=== PATIENT | female | born 1945 | race Caucasian/White ===

== ENCOUNTER 2017-01-12 05:15 | Inpatient (IN) | payer OTHER ==
[2016-12-14 12:39] VITALS: Ht 156.2 cm; Wt 86.0 kg
--- NOTE | 2016-12-14 12:59 | PAT Medication Instructions ---
Service Date December 14, 2016. Current Home Medication List Aspirin (Aspirin Chewable), 81 MG PO QPM Atorvastatin (Lipitor), 1 TAB PO QAM Lisinopril (Prinivil), 10 MG PO QAM Metoprolol Succ (Toprol Xl) (Toprol-Xl), 25 MG PO QPM Medication Instructions For Your Scheduled Surgery - Hold the following medications the morning of surgery: Lisinopril (Prinivil), 10 MG PO QAM - Take the following medications the morning of surgery with a sip of water OTHERWISE NOTHING TO EAT OR DRINK AFTER MIDNIGHT: Atorvastatin (Lipitor), 1 TAB PO QAM - Take the following medications as scheduled the night before surgery: Aspirin (Aspirin Chewable), 81 MG PO QPM Metoprolol Succ (Toprol Xl) (Toprol-Xl), 25 MG PO QPM If you have any questions please call us at [phone] or [phone] or [phone]
--- NOTE | 2016-12-14 13:45 | DIAGNOSTIC IMAGING REPORT ---
CHEST 2 VIEWS ROUTINE CLINICAL HISTORY: Preoperative chest COMPARISON STUDY: 11/15/2015 FINDINGS: The cardiac and mediastinal contours are normal. There is no evidence of focal pulmonary consolidation. There is no evidence of failure. No pleural effusions are visualized.[ IMPRESSION: No active disease in the chest. Electronically signed by: Venu Pollard M.D. 12/14/2016 1:43 PM Dictated Date/Time: 12/14/2016 1:43 PM
[2016-12-14 13:49] LABS: BASO % 0.3 %; BASO ABS # 0.02 K/uL (0-0.2); COMPLETE YES; EOS % 1.7 %; HEMATOCRIT 40.5 % (37-47); IG% 0.2 %; LYMPH % 37.5 %; LYMPH ABS # 2.25 K/uL (1.2-3.4); MEAN CELL VOLUME 89.8 fL (80-100); MEAN CORPUSCULAR HEMOGLOBIN 30.4 pg (25-34); MEAN CORPUSCULAR HGB CONC 33.8 g/dl (32-36); MEAN PLATELET VOLUME 9.6 fL (7.4-10.4); NEUT % 47.3 %; PLATELET COUNT 264 K/uL (130-400); RED BLOOD COUNT 4.51 M/uL (4.2-5.4)
[2016-12-14 14:02] LABS: INR 0.9 (0.9-1.1); PROTHROMBIN TIME (PATIENT) 9.9 SECONDS (9.0-12.0)
[2016-12-14 14:11] LABS: BUN/CREATININE RATIO 19.1 (10-20); CALCIUM 9.4 mg/dl (8.5-10.1); CREATININE 0.82 mg/dl (0.60-1.20); POTASSIUM 3.9 mmol/L (3.5-5.1)
--- NOTE | 2017-01-09 19:58 | HISTORY & PHYSICAL EXAMINATION ---
DATE OF ADMISSION: 01/12/2017 CHIEF COMPLAINT: bilateral knee pain. HISTORY OF PRESENT ILLNESS: The patient is a 71-year-old female who presents for surgical treatment for left knee. She has been a patient of my partner Dr. Kenny for quite some time. The patient has got a long history of bilateral knee pain and discomfort. Both knees hurt pretty equally. The left knee when it hurts seems to be a little bit more severe than the right, but the right hurts more often. The patient has been through an extensive conservative treatment. She has just gotten worn down by her knee pain and would like to have her knees fixed. The right knee has been more severe, more persistently painful than the left. She would like to proceed with right knee replacement. PAST MEDICAL HISTORY: Significant for: 1. Atrial fibrillation followed by Dr. Hernandez and not on any anti-coagulants, but controlled with metoprolol. 2. Elevated cholesterol. 3. Hypertension. PREVIOUS SURGERIES: Include: 1. Breast biopsy. 2. Tonsillectomy. ALLERGIES: None. CURRENT MEDICINES: 1. Lisinopril 10 mg a day. 2. Lipitor 10 mg. 3. Baby aspirin 81 mg. 4. Metoprolol 25 mg a day. SOCIAL HISTORY: A 71-year-old female. She is . Does not smoke. She is from [place]. FAMILY HISTORY: Noncontributory. REVIEW OF SYSTEMS: Negative for diabetes, neurologic problems, vascular problems or bleeding disorders. She has a history of atrial fibrillation, well controlled on metoprolol. Not on any blood thinners. No current chest pain or shortness of breath. PHYSICAL EXAMINATION: GENERAL: Reveals a healthy pleasant, middle-aged female. Looks to be in good health. HEENT: Benign. NECK: Supple. No lymphadenopathy. LUNGS: Clear to auscultation. HEART: Has a regular rate and rhythm. ABDOMEN: Soft, nontender, nondistended. EXTREMITIES: Grossly neurovascularly intact except as follows: Examination of both knees reveals the patient walks with a little bit of waddling gait. She has got varus alignment to both knees. She has got bony hypertrophy medially. Range of motion of the right knee is 10-110 and the left knee is 10-115. No instability on either side. X-RAYS: X-rays of both knees were reviewed. It shows advanced bilateral knee DJD. The right side is a bit worse than the left. She has got a little bit of tibial-femoral subluxation. She has got some complete loss of her medial joint space in both knees. ASSESSMENT: A 71-year-old female with advanced bilateral knee degenerative joint disease. She has failed conservative treatment and would like to consider knee replacement surgery. She is wanting both of her knees replaced. PLAN: We are going to proceed with a right knee replacement. It seems to be the more sore currently. The risks and benefits of total knee replacement were explained to the patient including but not limited to DVT, PE, , infection, neurological injury, vascular injury, bleeding problem, pain, limited range of motion, stiffness, failure to relieve her symptoms, incomplete relief of symptoms, need for further surgery in the future, fracture, leg length inequality, nerve palsy, persistent pain, incomplete relief of symptoms, etc. The patient understands and desires to proceed. Informed consent was obtained. We did talk about holding her lisinopril in the morning of surgery and take her metoprolol. We can have Dr. Hernandez follow in the hospital if needed. She is hoping to go to [facility] for a brief rehab stay and then using [facility]. The patient had preoperative workup. Chest x-ray was normal. EKG showed normal sinus rhythm and she is not in AFib but she does have a left bundle branch block unchanged from November 2015. Labs were all normal. We will proceed with the plan as above. RADHAD
[~2017-01-12] VITALS: Ht 156.2 cm; Wt 86.0 kg
[2017-01-12] VITALS (10 sets, daily range): BP systolic 98–137; BP diastolic 61–79; PULSE 62–88; TEMP 36.5–37.3; O2SAT 95–98
[~2017-01-12 05:15] MED LIST: ASPCH81X PO; ATOR10TA82 PO; LISI10TA PO; METO25TA3 PO
[2017-01-12] MEDS ORDERED: TRANEXAMIC ACID INJ 1,000 MG in SODIUM CHLORIDE 0.9% 100ML 100 ML IV SCH ×2 (06:00→17:00)
[2017-01-12] MEDS ORDERED: CEFAZOLIN 2000 MG/60 ML D5W 60 ML IV SCH (06:00)
[2017-01-12] MEDS ORDERED: LACTATED RINGER'S 1000ML 1,000 ML IV SCH (06:00)
[2017-01-12] MEDS ORDERED: LACTATED RINGER'S 1000ML IV SCH (06:00)
[2017-01-12] MEDS ORDERED: METOCLOPRAMIDE HCL 10 MG TAB PO SCH (06:00)
[2017-01-12] MEDS ORDERED: FAMOTIDINE 20 MG TAB PO SCH (06:00)
[2017-01-12] MEDS ORDERED: LACTATED RINGER'S 1000ML 500 ML IV ONE (06:00)
[2017-01-12] MEDS ORDERED: ACETAMINOPHEN 500 MG TAB PO SCH (06:00)
[2017-01-12] MEDS ORDERED: GABAPENTIN 300 MG CAP PO SCH (06:00)
[2017-01-12] MEDS ORDERED: BUPIVACAINE LIPOSOME 266 MG, BUPIVACAINE/EPINEPHRINE INJ 50 ML, SODIUM CHLORIDE 0.9% PF... INFIL SCH ×3 (06:00)
[2017-01-12] MEDS ORDERED: SCOPOLAMINE 1.5 MG TDSY TD SCH (06:00)
[2017-01-12] MEDS ORDERED: BUPIVACAINE LIPOSOME 1/3% 266 MG/20 ML VIAL INFIL ONE (06:27)
[2017-01-12] MEDS ORDERED: SODIUM CHLORIDE 0.9% PF 50 ML VIAL ONE (06:27)
[2017-01-12] MEDS ORDERED: BUPIVACAINE/EPINEPHRINE 0.25% 1:200,000 30 ML VIAL ONE (06:27)
[2017-01-12] MEDS ORDERED: BACITRACIN 50000 UNIT VIAL ONE (06:27)
[2017-01-12] MEDS ORDERED: BUPIVACAINE 0.25% 30 ML VIAL ONE (06:31)
[2017-01-12] MEDS ORDERED: BUPIVACAINE 0.5 % 5 MG/1 ML PF 10ML VIAL ONE (06:31)
[2017-01-12] MEDS ORDERED: MIDAZOLAM HCL 1 MG/ML 2ML VIAL ONE (06:39)
[2017-01-12] MEDS ORDERED: LIDOCAINE HCL 2% 2 ML VIAL (20MG/ML) ONE (06:39)
[2017-01-12] MEDS ORDERED: PROPOFOL IV EMULSION 10 MG/ML 20 ML VIAL IV ONE (06:39)
[2017-01-12] MEDS ORDERED: FENTANYL CITRATE INJ 50 MCG/1 ML 2 ML VIAL ONE (06:40)
--- NOTE | 2017-01-12 06:52 | History & Physical Bridge Note ---
H&P Re-Evaluation Bridge Note: I have examined the patient, reviewed the History & Physical and in the interval since the performance of the History & Physical I have noted the following changes of clinical significance: No changes noted
[2017-01-12] MEDS ORDERED: HYDROmorphone INJ 1 MG/ML SYR IV PRN ×2 (08:00→11:00)
[2017-01-12] MEDS ORDERED: MEPERIDINE HCL 25 MG/ML CARP IV PRN (08:00)
[2017-01-12] MEDS ORDERED: ATROPINE SULFATE 0.1 MG/ML 5ML SYR IV PRN (08:00)
[2017-01-12] MEDS ORDERED: FENTANYL CITRATE INJ 50 MCG/1 ML 2 ML VIAL IV PRN (08:00)
[2017-01-12] MEDS ORDERED: LABETALOL HCL IV 5 MG/ML 20ML IV PRN (08:00)
[2017-01-12] MEDS ORDERED: ONDANSETRON INJ 2 MG/ML 2 ML VIAL IV PRN ×2 (08:00→08:45)
[2017-01-12] MEDS ORDERED: EpHEDrine SULFATE INJ 50 MG/ML AMP IV PRN (08:00)
--- NOTE | 2017-01-12 08:34 | [facility] Post Operative Brief Note ---
Immediate Operative Summary Operative Date January 12, 2017. Pre-Operative Diagnosis Right Knee Degenerative Joint Disease Post-Operative Diagnosis Same as preop Procedure(s) Performed [facility] [place] Total Knee Arthroplasty Surgeon Dr. Lobo Signal Apprentice Surgeon(s) Bartolome Mendez PA-C Estimated Blood Loss 50 ml Findings Right Knee DJD Fluids (cc crystalloids) 1600 cc Specimens A. Right Knee Bone and Tissue Drains None Anesthesia Spinal Complication(s) None Disposition Recovery Room / PACU
[2017-01-12] MEDS ORDERED: SILVER SULFADIAZINE 1% CR 50 GM JAR EXT PRN (08:45)
[2017-01-12] MEDS ORDERED: ZOLPIDEM TARTRATE 5 MG TAB PO PRN (08:45)
[2017-01-12] MEDS ORDERED: TRAMADOL HCL 50 MG TAB PO PRN (08:45)
[2017-01-12] MEDS ORDERED: METOCLOPRAMIDE HCL INJ 5 MG/ML 2 ML VIAL IV PRN (08:45)
[2017-01-12] MEDS ORDERED: ALUMINUM/MAGNESIUM/SIMETH (MAALOX MAX) 30 ML UDC PO PRN (08:45)
[2017-01-12] MEDS ORDERED: BISACODYL 10 MG SUPP PR PRN (08:45)
[2017-01-12] MEDS ORDERED: MAGNESIUM HYDROXIDE SUSP 30 ML UDC PO PRN (08:45)
--- NOTE | 2017-01-12 09:19 | OPERATIVE REPORT ---
DATE OF OPERATION: 01/12/2017 SURGEON: Garry Lobo MD PROCESSOR GRAIN: VINAY Xavier PREOPERATIVE DIAGNOSIS: Right knee degenerative joint disease. POSTOPERATIVE DIAGNOSIS: Same. PROCEDURE PERFORMED: Right cemented posterior stabilized total knee arthroplasty. COMPLICATIONS: None. ESTIMATED BLOOD LOSS: 50 mL. FLUID REPLACEMENT: 1600 mL crystalloid fluid replacement. TOURNIQUET TIME: 53 minutes at 300 mmHg. ANESTHESIA: Spinal with adductor canal block. DRAINS: None. SPECIMENS: Right knee sent for pathology. OPERATIVE INDICATIONS: The patient is a 71-year-old female who has had a long history of bilateral knee pain and discomfort. She has been managed by my partner Dr. Kenny for several years. This has become less successful. She has become more debilitated by her pain. The right knee has been worse than the left. She elected to proceed with total knee arthroplasty. OPERATIVE FINDINGS: Operative findings revealed advanced right knee DJD. She had extensive grade 4 [id number] disease of the medial femoral condyle and medial tibial plateau. She did have some focal grade 4 changes elsewhere. She had a fixed varus deformity to her knee with a very stiff knee with only about 105 degrees of flexion preoperatively. Moderate size joint effusion. OPERATIVE IMPLANTS: Operative implants consisted of: 1. Biomet Vanguard size 65 right posterior stabilized femoral component. 2. Biomet size 67 tibial tray. 3. A 10-mm posterior stabilized polyethylene insert. 4. A 31 x 8 all poly patella. OPERATIVE PROCEDURE: The patient was taken to the operating room, identified and placed on the operating table in the supine position. All contact areas were appropriately padded. IV antibiotics were provided by the anesthesia team. A spinal anesthetic and adductor canal block had been provided in the holding area. Robertson catheter was placed in sterile fashion. Right thigh tourniquet was then placed and the right lower extremity was then prepped and draped in the usual sterile fashion. The right leg was elevated and exsanguinated with Esmarch and tourniquet was placed at 300 mmHg. An anterior approach to the right knee was then performed through a longitudinal incision centered over the patella. Sharp dissection was carried out through the subcutaneous tissues down to the level of the extensor mechanism. A medial parapatellar arthrotomy incision was made. Some subperiosteal dissection was carried out medially. The fat pad was resected from beneath the patellar tendon. Lateral patellofemoral ligament was released. The knee was pretty stiff, so I elected to cut the patella first. I everted the patella. The patella was cleaned of all soft tissues. Patellar thickness measured 23 mm and was cut down to 14. It was sized to a size 31 patella. Lateral osteophyte was removed. I did not prepare the patella until the end of the case. The patella was subluxated laterally and the knee was flexed. The osteophytes were taken off the distal femur. The ACL and PCL were then released from the distal femur and the tibia was subluxated anteriorly. The external tibial alignment jig was then placed in the anterior face of the tibia and adjusted 16 mm medially. Proximal tibial cut was made to remove about a millimeter of bone from the most deficient aspect of the posteromedial tibial plateau. Tibia was sized to a size 67. Some osteophytes were taken off medial and posteromedially. Attention was then drawn to the femur. The distal femur was entered with a sharp drill bit. Intramedullary canal was suctioned. A right 5-degree valgus cutting guide was placed. Distal femoral cutting block was pinned in place. Distal femoral cut was made to take an additional 3 mm of bone off the distal femur. The femur was then sized to a size 65. We did downsize this just slightly. The AP cutting block was pinned parallel to the epicondylar axis, which was 3 degrees of external rotation. The anterior cut, anterior chamfer, posterior cut, and posterior chamfer cuts were made. Box cutting guide was placed and adjusted slightly lateral and the box cut was made. The knee was flexed. The remnants of the medial and lateral meniscus were excised. The osteophytes were taken off the posterior aspect of the femur. Trial femoral component was placed. Tibial tray was pinned in maximum external rotation and drill and stem punch were used to create defect in proximal tibia for the tibial tray. The knee was then trialed and the 10-mm insert fit most appropriately. Attention was then drawn to the patella. The patella was then prepared for a 31 patella. Lug holes were drilled. Patella button was placed. Knee was taken through range of motion and patella tracked nicely with no thumbs test. Attention was then drawn toward placement of permanent components. All trial components were removed. A bone plug was placed in the distal femur to limit blood loss. The wound was irrigated with copious amounts of pulsatile lavage solution. A double batch of Palacos G cement was mixed. A right size 65 posterior stabilized femoral component, size 67 tibial tray, a 10-mm posterior stabilized polyethylene insert, and a 31 x 8 all poly patella then cemented in place. Knee was brought out into full extension until cement hardened. A final cement check was then performed. Pericapsular tissues were injected with a total of 100 mL of a combination of 20 of Exparel, 30 mL normal saline, and 50 mL of 0.25% Marcaine with epinephrine. The patient did receive 1 gram of tranexamic acid. The tourniquet was then let down for final tourniquet time of 53 minutes. Hemostasis was assured with the use of electrocautery. The wound was once again irrigated. The extensor mechanism was then closed with a combination of #1 PDS suture and #1 Vicryl suture in a [id number] fashion. Extensor mechanism was checked and found to be intact. The subcutaneous tissues were then closed with 2-0 Dexon suture in a buried interrupted fashion. Skin was closed with skin adriana. The leg was then cleaned and dried and a sterile dressing with Xeroform, 4 x 4, sterile cast padding and En bandage were applied. The patient then transferred to the recovery room in stable condition. The patient tolerated the procedure well with no complications. All needle and sponge counts were correct at the end of the operation. I attest to the content of the Intraoperative Record and any orders documented therein. Any exceptio ns are noted below.
--- NOTE | 2017-01-12 09:39 | DIAGNOSTIC IMAGING REPORT ---
RIGHT KNEE 1 OR 2 VIEWS ROUTINE CLINICAL HISTORY: Degenerative arthritis. Postoperative study. COMPARISON: 12/07/2016 DISCUSSION: There are postsurgical changes of a total right knee arthroplasty and patellar resurfacing. The femoral and tibial components appear well seated. Overlying skin adriana are visualized. Air within the soft tissues is consistent with recent surgery. IMPRESSION: Postsurgical changes of a total right knee arthroplasty Electronically signed by: Venu Pollard M.D. 01/12/2017 9:38 AM Dictated Date/Time: 01/12/2017 9:35 AM
--- NOTE | 2017-01-12 10:27 | Anesthesiology Progress Note ---
Anesthesia Post Op Note Date & Time January 12, 2017 at 10:28 Vital Signs Pain Intensity: 0 Vital Signs Past 12 Hours Date Time Temp Pulse Resp B/P Pulse Ox O2 Delivery O2 Flow Rate FiO2 01/12/17 10:18 36.4 87 17 125/71 98 Nasal Cannula 2 01/12/17 09:32 76 18 98 01/12/17 09:32 76 18 01/12/17 09:31 121/67 01/12/17 09:27 85 20 01/12/17 09:27 86 20 98 01/12/17 09:26 126/69 01/12/17 09:22 85 22 01/12/17 09:22 86 22 99 01/12/17 09:21 127/68 01/12/17 09:17 76 24 99 01/12/17 09:17 77 24 01/12/17 09:16 75 21 01/12/17 09:16 75 21 01/12/17 09:16 74 21 119/66 99 01/12/17 09:16 74 21 119/66 99 01/12/17 09:11 82 18 01/12/17 09:11 82 18 01/12/17 09:11 81 18 121/62 99 01/12/17 09:11 81 18 121/62 99 01/12/17 09:06 76 16 120/66 99 01/12/17 09:06 76 16 01/12/17 09:06 76 16 120/66 99 01/12/17 09:06 76 16 01/12/17 09:01 75 15 117/62 99 01/12/17 09:01 74 15 01/12/17 09:01 74 15 01/12/17 09:01 75 15 117/62 99 01/12/17 08:56 75 24 121/65 98 01/12/17 08:56 75 24 01/12/17 08:56 75 24 01/12/17 08:56 75 24 121/65 98 01/12/17 08:51 81 14 01/12/17 08:51 81 14 01/12/17 08:51 80 14 125/68 99 01/12/17 08:51 80 14 125/68 99 01/12/17 08:46 72 14 114/59 99 01/12/17 08:46 73 14 01/12/17 08:46 72 14 114/59 99 01/12/17 08:46 73 14 01/12/17 08:41 78 18 109/69 99 01/12/17 08:41 78 18 01/12/17 08:41 78 18 01/12/17 08:41 78 18 109/69 99 01/12/17 08:38 116/62 01/12/17 08:38 116/62 01/12/17 08:36 36.1 77 13 116/62 96 Nasal Cannula 2 01/12/17 05:52 36.6 79 18 137/76 96 Room Air Notes Mental Status: alert / awake / arousable, participated in evaluation Pt Amnestic to Procedure: Yes Nausea / Vomiting: adequately controlled Pain: adequately controlled Airway Patency, RR, SpO2: stable & adequate BP & HR: stable & adequate Hydration State: stable & adequate Anesthetic Complications: no major complications apparent
[2017-01-12] MEDS: DOCUSATE SODIUM 100 MG CAP PO SCH ×2 (12:54→21:16)
[2017-01-12] MEDS: D5W AND 1/2NSS + 20MEQ KCL 1,000 ML IV SCH ×2 (12:54→21:16)
[2017-01-12] MEDS: ASPIRIN 325 MG ECTAB PO SCH ×2 (12:55→21:15)
[2017-01-12] MEDS: FERROUS GLUCONATE 324 MG TAB PO SCH ×2 (12:55→17:44)
[2017-01-12] MEDS: ATORVASTATIN 10 MG TAB PO SCH (12:55)
[2017-01-12] MEDS: PANTOprazole SOD 40 MG TAB PO SCH (12:55)
[2017-01-12] MEDS: MULTIVITAMIN TAB PO SCH (12:56)
[2017-01-12] MEDS: KETOROLAC TROMETHAMINE 15 MG/ML VIAL IV. SCH ×3 (12:59→23:25)
[2017-01-12] MEDS: CEFAZOLIN IV 2,000 MG in DEXTROSE 5% 50ML 50 ML IV SCH ×2 (14:18→22:02)
[2017-01-12] MEDS: ACETAMINOPHEN 500 MG TAB PO SCH ×2 (14:18→22:02)
[2017-01-12] MEDS: CHECK SCOPOLAMINE PATCH PLACEMENT SCH ×2 (15:25→23:26)
--- NOTE | 2017-01-12 15:58 | PROGRESS NOTE ---
DATE: 01/12/2017 SUBJECTIVE: A 71-year-old female postop from a right knee replacement. She is doing well. Not having any pain at all yet. No chest pain or shortness of breath. Not feeling dizzy or lightheaded. OBJECTIVE: VITAL SIGNS: Temperature is 36.6. Vital signs stable. GENERAL: Physical examination reveals healthy, pleasant, middle-aged female. She is sitting up in bed and looks pretty comfortable. LUNGS: Clear to auscultation. HEART: Regular rate and rhythm. ABDOMEN: Soft, nontender, and nondistended. EXTREMITIES: Grossly neurovascularly intact except as follows: Examination of the right leg reveals the leg to be well aligned. Dressing is clean, dry and intact. She can dorsiflex and plantarflex her foot appropriately. She is neurologically intact. X-RAYS: X-rays of the right knee from recovery room reviewed. It shows a right cemented posterior stabilized total knee arthroplasty. Components looked to be in good position. No signs of problems. ASSESSMENT: A 71-year-old white female postop from a right knee replacement, doing well. Pain is controlled. She is neurologically intact. PLAN: 1. DVT prophylaxis including thigh-high TEDs, SCDs, and aspirin twice a day. 2. PT/OT. Weightbearing as tolerated. Right total knee protocol. 3. Pain control, doing pretty well with current pain regimen. 4. IV antibiotics x24 hours. 5. Disposition: She is hoping to be discharged to [facility]. We will get elementary school social worker to work on this tomorrow and see whether she qualifies. Otherwise, she will likely go home with some home health.
[2017-01-12] MEDS: METOPROLOL SUCC 25MG EXT REL TAB PO SCH (21:00)
[2017-01-12] MEDS: SENNA 8.6 MG TAB PO SCH (21:15)
[2017-01-13] VITALS (7 sets, daily range): BP systolic 110–166; BP diastolic 65–74; PULSE 58–74; TEMP 36.4–36.9; O2SAT 95–97
[2017-01-13 05:38] LABS: HEMATOCRIT 31.4 % (37-47); MEAN CELL VOLUME 89.5 fL (80-100); MEAN CORPUSCULAR HEMOGLOBIN 30.2 pg (25-34); MEAN CORPUSCULAR HGB CONC 33.8 g/dl (32-36); MEAN PLATELET VOLUME 9.5 fL (7.4-10.4); PLATELET COUNT 217 K/uL (130-400); RED BLOOD COUNT 3.51 M/uL (4.2-5.4); WHITE BLOOD COUNT 13.46 K/uL (4.8-10.8)
[2017-01-13] MEDS: KETOROLAC TROMETHAMINE 15 MG/ML VIAL IV. SCH ×4 (05:39→23:45)
[2017-01-13] MEDS: ACETAMINOPHEN 500 MG TAB PO SCH ×3 (05:39→21:07)
[2017-01-13 06:08] LABS: BUN/CREATININE RATIO 16.1 (10-20); CALCIUM 8.1 mg/dl (8.5-10.1); CREATININE 0.87 mg/dl (0.60-1.20); POTASSIUM 4.5 mmol/L (3.5-5.1)
[2017-01-13] MEDS: CHECK SCOPOLAMINE PATCH PLACEMENT SCH ×3 (07:07→23:45)
[2017-01-13] MEDS: D5W AND 1/2NSS + 20MEQ KCL 1,000 ML IV SCH (07:07)
[2017-01-13] MEDS ORDERED: FRRG PO (08:15)
[2017-01-13] MEDS ORDERED: ASPEC325 PO (08:15)
[2017-01-13] MEDS ORDERED: ULT50X PO (08:15)
[2017-01-13] MEDS ORDERED: ACET-1138 PO (08:15)
--- NOTE | 2017-01-13 08:17 | Discharge Instructions ---
Discharge Instructions Date of Service January 13, 2017. Admission Reason for Admission: Right Knee Degenerative Joint Disease Discharge Discharge Diagnosis / Problem: Right Knee Replacement Discharge Goals Goal(s): Decrease discomfort, Improve function, Increase independence, Improve disease control Activity Recommendations Activity Limitations: per Instructions/Follow-up section Weightbearing Status: Right weightbearing . Instructions / Follow-Up Instructions / Follow-Up ACTIVITY RECOMMENDATIONS: Physical Therapy: * You will go to physical therapy three times each week for four to six weeks after your surgery in order to regain your knee range of motion and to retrain your knee to work properly. * It is just as important to make sure you are getting your knee perfectly straight as it is to regain your knee bend. * Taking a pain pill an hour before therapy can help you have a more productive and comfortable therapy session. Home Exercise: * You were shown a series of exercises (heel props, heel slides, etc.) in the hospital. Do these exercises three to four times each day including the exercises you were shown in physical therapy. Walking: * Get up and walk several times each day. For the first four weeks, try not to stand or walk for more than one hour at a time. If you do stand or walk for more than one hour, you will not hurt anything, but your knee and leg will likely swell. * As you feel comfortable, you may change from the walker or crutches to a cane and then to independent walking. MEDICATIONS: New Medicine: * You will likely be taking one or more of these medications: 1. Tramadol - A quick and shorter-acting pain medication. Take one to two tablets every four to six hours to lessen your pain. 2. Iron Sulfate - Take three times each day for the month after surgery to help you replace the blood lost during surgery. 3. Aspirin - Thins your blood to lessen the chance of forming a blood clot. * The most common side effects of pain medicine and iron are nausea and constipation. If nausea or constipation is too much of a problem or if you have any questions about your new medicines or doses, call [facility] at . We will try to help you manage these issues. VERY IMPORTANT TO READ AND REVIEW" Pain: * The immediate post-operative period after knee replacement surgery is often quite painful. * You are given a prescription for pain medicine. You should take it, as directed, when you need it, especially before physical therapy and before going to bed. Pain that interferes with sleep is very common and can last several months. * You will likely need pain medicine for the first four to six weeks. It will not stop all of the pain. The pain will lessen and as you feel better, you may change to milder pain medicine such as Tylenol. * The most common side effects of pain medicine are nausea and constipation, so don't take more than you need. SPECIAL CARE INSTRUCTIONS: TEDs/Elastic Stockings: * The white elastic stockings help limit swelling and prevent blood clots from forming in your legs. The more you wear them, the more they work. * Wear them for six weeks after knee replacement surgery and four weeks after partial knee replacement. Prevention of Infection: * Take antibiotics one hour before any dental cleaning, dental work, urological procedure, gastrointestinal procedure or any invasive surgery in order to prevent your new joint from getting infected. * You may get the antibiotics from the doctor performing the procedure or you may call our office at before and we will call in a prescription to the pharmacy of your choice. Things to Watch For: * Drainage from the incision site that occurs more than one week after your surgery. * Severely increased knee/leg pain or swelling. * Increased redness at the incision site. * Fever above 102 degrees Fahrenheit. * Unusual chest pain or shortness of breath. * Unusual pain or burning with urination. Call [facility] at with any of the above problems or if you have any questions about your medicines or recovery. FOLLOW UP VISIT: Make an appointment to see your doctor for approximately two weeks after surgery for a progress check and staple removal by calling the office at . Current Hospital Diet Patient's current hospital diet: Regular Diet Discharge Diet Recommended Diet: Regular Diet Procedures Procedures Performed: Right Total Knee Arthroplasty Pending Studies Studies pending at discharge: no Medical Emergencies . Who to Call and When: Medical Emergencies: If at any time you feel your situation is an emergency, please call [phone] immediately. . Non-Emergent Contact Non-Emergency issues call your: Surgeon . "Provider Documentation" section prepared by Garry Lobo. . VTE Core Measure Inpt VTE Proph given/why not?: Other Anticoagulation, T.E.D. Stockings, SCD's
--- NOTE | 2017-01-13 08:20 | PROGRESS NOTE ---
DATE: 01/13/2017 SUBJECTIVE: A 71-year-old white female postop day 1 from right knee replacement. She is doing well. Pain is controlled. Denies any chest pain or shortness of breath. Not feeling dizzy or lightheaded. OBJECTIVE: VITAL SIGNS: Temperature 36.7. Vital signs stable. PHYSICAL EXAMINATION: GENERAL: Reveals a pleasant a middle-aged female. The patient is lying in bed, looks pretty comfortable. EXTREMITIES: Examination of the right leg reveals the dressing to be clean, dry and intact. She can dorsiflex and plantarflex her foot appropriately. She is neurologically intact. LABORATORY DATA: Hemoglobin 10.6. Hematocrit 31.4. Electrolytes are stable. White cell count 13.46. ASSESSMENT: A 71-year-old white female postop day 1 from right knee replacement, doing well. Pain is controlled. White cell count elevated, likely related to stress. No signs of any infection. PLAN: 1. DVT prophylaxis including thigh-high TEDs, SCDs, and aspirin twice a day. 2. PT/OT. Weightbearing as tolerated. Right total knee protocol. 3. Pain control. Doing well with current pain regimen. 4. Disposition: She is kind of waffling between trying to go to rehab versus home health. We will get social media project manager to see her and see whether she even qualifies for rehabilitation.
[2017-01-13] MEDS: ASPIRIN 325 MG ECTAB PO SCH ×2 (08:42→21:06)
[2017-01-13] MEDS: ATORVASTATIN 10 MG TAB PO SCH (08:42)
[2017-01-13] MEDS: DOCUSATE SODIUM 100 MG CAP PO SCH ×2 (08:42→21:06)
[2017-01-13] MEDS: PANTOprazole SOD 40 MG TAB PO SCH (08:43)
[2017-01-13] MEDS: FERROUS GLUCONATE 324 MG TAB PO SCH ×3 (08:43→18:18)
[2017-01-13] MEDS: MULTIVITAMIN TAB PO SCH (08:43)
[2017-01-13] MEDS: METOPROLOL SUCC 25MG EXT REL TAB PO SCH (21:06)
[2017-01-13] MEDS: SENNA 8.6 MG TAB PO SCH (21:07)
[2017-01-14] MEDS: ACETAMINOPHEN 500 MG TAB PO SCH ×2 (05:43→13:33)
[2017-01-14] MEDS: KETOROLAC TROMETHAMINE 15 MG/ML VIAL IV. SCH (05:44)
[2017-01-14 06:55] VITALS: BP 129/78; PULSE 62; TEMP 36.5; O2SAT 96
[2017-01-14 07:00] VITALS: O2SAT 96
[2017-01-14 07:23] VITALS: BP 129/78; PULSE 62; TEMP 36.5; O2SAT 96
--- NOTE | 2017-01-14 07:35 | PROGRESS NOTE ---
DATE: 01/14/2017 SUBJECTIVE: 71-year-old white female postop day 2 from right knee replacement. She is doing well. Pain is controlled. Therapy has gone pretty well. Denies any chest pain or shortness of breath. OBJECTIVE: VITAL SIGNS: Temperature 36.4. Vital signs stable. PHYSICAL EXAMINATION: GENERAL: Pleasant elderly female. I had to wake her this morning. She looks comfortable. EXTREMITIES: Examination of the right leg reveals the dressing to be clean, dry and intact. Her calf is soft and supple. She can dorsiflex and plantarflex her foot appropriately. She is neurologically intact. ASSESSMENT: 71-year-old white female postop day 2 from right knee replacement, doing pretty well. PLAN: 1. DVT prophylaxis including thigh-high TEDS, SCDs, and aspirin twice a day. 2. PT/OT. Weightbearing as tolerated. Right total knee protocol. 3. Pain control, doing well with current pain regimen. 4. Disposition: She was hoping to go to rehabilitation. I think it is unlikely she will get approved. We are going to discharge her home with some home health services if not approved for rehabilitation. I will see her back 2 weeks postop.
[2017-01-14] MEDS: ASPIRIN 325 MG ECTAB PO SCH (08:15)
[2017-01-14] MEDS: ATORVASTATIN 10 MG TAB PO SCH (08:15)
[2017-01-14] MEDS: DOCUSATE SODIUM 100 MG CAP PO SCH (08:16)
[2017-01-14] MEDS: PANTOprazole SOD 40 MG TAB PO SCH (08:18)
[2017-01-14] MEDS: MULTIVITAMIN TAB PO SCH (08:18)
[2017-01-14] MEDS: FERROUS GLUCONATE 324 MG TAB PO SCH ×2 (08:18→12:24)
--- NOTE | 2017-01-22 14:12 | DISCHARGE SUMMARY ---
ADMITTING PHYSICIAN AND SURGEON: Dr. Lobo. ADMITTING DIAGNOSIS: Right knee degenerative joint disease. SURGERY PERFORMED: Right total knee arthroplasty. SECONDARY DIAGNOSES: Includes atrial fibrillation, elevated cholesterol, hypertension. CONSULTS: None obtained. HISTORY AND PHYSICAL EXAMINATION: Well documented in the patient's chart. HOSPITAL COURSE: The patient was admitted on 01/12/2017 underwent total knee arthroplasty. She tolerated procedure well. There were no complications. She was transferred to the PACU postoperatively and later to the orthopedic floor for further care. She was given Ancef for antibiotic prophylaxis, MAYE stockings, SCDs and aspirin for DVT prophylaxis. Hemoglobin, hematocrit and vital signs were monitored during her hospital stay and remained stable. She developed some postoperative anemia with a hemoglobin of 10.6. She did not require any blood transfusions. There were no complications. By postoperative day 2, she was tolerating a general diet, pain was controlled with oral pain medicine. She was participating in physical therapy and had no signs or symptoms of deep vein thrombosis. On postop day 2, she was discharged home and set up with home health services. She was given printed discharge instructions including prescriptions for Extra-Strength Tylenol, aspirin 325 mg b.i.d., iron supplement and tramadol. Continue her home medications with the exception of her home dose of aspirin which was changed. Continue physical therapy, weightbearing as tolerated, MAYE stockings. Follow up in 10-12 days or sooner if there are any problems or concerns.
[2017-06-02] MEDS ORDERED: MULT-506 PO (15:19)
[2017-06-02] MEDS ORDERED: ASPI81TA28 PO (15:19)
== END 2017-01-14 13:40 | disposition home health service (06) | DRG 470 ==
LOC: ENRESERVTM → ENRESERVDT → C.ACU 05:15 → C.3E 06:40
PROVIDERS: ADMIT Orthopaedic Surgery Sports Medicine; ATTEND Orthopaedic Surgery Sports Medicine
PROC: 0SRC0J9 Replacement of Right Knee Joint with Synthetic Substitute, Cemented, Open Approach (ICD-10-PCS; principal; 2017-01-12 07:00)
DX: M17.0 Bilateral primary osteoarthritis of knee (principal); M25.461 Effusion, right knee; M21.161 Varus deformity, not elsewhere classified, right knee; M21.162 Varus deformity, not elsewhere classified, left knee; I48.91 Unspecified atrial fibrillation; I10 Essential (primary) hypertension; E78.00 Pure hypercholesterolemia, unspecified; E66.9 Obesity, unspecified; Z68.35 Body mass index [BMI] 35.0-35.9, adult; Z79.82 Long term (current) use of aspirin; Z79.899 Other long term (current) drug therapy

== ENCOUNTER → 2017-06-14 | Outpatient (CLI) | payer OTHER ==
[~2017-06-14] MED LIST changes: -ASPCH81X PO; +ASPI81TA28 PO; +MULT-506 PO
[2017-06-14 16:28] LABS: PROTHROMBIN TIME (PATIENT) 10.2 SECONDS (9.0-12.0)
[2017-06-14 16:31] LABS: BASO % 0.1 %; BASO ABS # 0.01 K/uL (0-0.2); COMPLETE YES; EOS % 1.1 %; HEMATOCRIT 40.3 % (37-47); IG% 0.3 %; LYMPH % 21.5 %; LYMPH ABS # 2.15 K/uL (1.2-3.4); MEAN CELL VOLUME 88.6 fL (80-100); MEAN CORPUSCULAR HEMOGLOBIN 29.7 pg (25-34); MEAN CORPUSCULAR HGB CONC 33.5 g/dl (32-36); MEAN PLATELET VOLUME 9.8 fL (7.4-10.4); MONO % 6.1 %; NEUT % 70.9 %; PLATELET COUNT 308 K/uL (130-400); RED BLOOD COUNT 4.55 M/uL (4.2-5.4); WHITE BLOOD COUNT 9.99 K/uL (4.8-10.8)
[2017-06-14 16:56] LABS: BLOOD UREA NITROGEN 18 mg/dl (7-18); BUN/CREATININE RATIO 23.7 (10-20); C-REACTIVE PROTEIN 0.36 mg/dl (0-0.29); CALCIUM 9.3 mg/dl (8.5-10.1); CARBON DIOXIDE 30 mmol/L (21-32); CHLORIDE 104 mmol/L (98-107); CREATININE 0.77 mg/dl (0.60-1.20); GLUCOSE 130 mg/dl (70-99); POTASSIUM 3.5 mmol/L (3.5-5.1); SODIUM 141 mmol/L (136-145)
== END | disposition home or self-care (01) ==
LOC: C.LAB 14:12
PROVIDERS: ATTEND Orthopaedic Surgery Sports Medicine
DX: Z01.812 Encounter for preprocedural laboratory examination (principal)

== ENCOUNTER 2017-07-13 05:57 | Inpatient (IN) | payer OTHER ==
[2017-06-02 15:14] VITALS: BMI 34.0
--- NOTE | 2017-07-09 10:09 | HISTORY & PHYSICAL EXAMINATION ---
DATE OF ADMISSION: 07/13/2017 CHIEF COMPLAINT: Left knee pain. HISTORY OF PRESENT ILLNESS: A 71-year-old female who is now about 5-1/2 months out from right knee replacement who presents for surgical treatment of her left knee. She had got a chronic history of left knee pain and discomfort. This has gradually gotten worse over time. She had a right knee replacement and has done extremely well from this and would like to have her left knee replaced. She describes global pain in her knee increased with weightbearing. The more she walks, the more it hurts. PAST MEDICAL HISTORY: 1. Atrial fibrillation followed by Dr. Hernandez. 2. Elevated cholesterol. 3. Hypertension. PAST SURGICAL HISTORY: Include: 1. Breast biopsy. 2. Tonsillectomy. 3. Right knee replacement done 01/12/2017. ALLERGIES: None. CURRENT MEDICINES: Include: 1. Lisinopril 10 mg a day. 2. Lipitor 10 mg a day. 3. Baby Aspirin 81 mg daily. 4. Metoprolol 25 mg a day. SOCIAL HISTORY: A 71-year-old female. She is . Does not smoke. FAMILY HISTORY: Noncontributory. REVIEW OF SYSTEMS: Negative for diabetes, neurologic problems, vascular problems or bleeding disorders. No history of chest pain or shortness of breath. No history of DVT or PE. She does have a history of paroxysmal atrial fibrillation followed by Dr. Hernandez. PHYSICAL EXAMINATION: GENERAL: Reveals a pleasant elderly female who looks to be in good health. HEAD, EYES, EARS, NOSE, AND THROAT EXAMINATION: Benign. NECK: Supple. No lymphadenopathy. LUNGS: Clear to auscultation. HEART: Regular rate and rhythm. ABDOMEN: Soft, nontender, nondistended. EXTREMITY EXAMINATION: Grossly neurovascularly intact except as follows: Examination of the left knee reveals varus alignment to her knee. Moderate soft tissue envelope. She is tender over the medial joint line. Range of motion is 5-120. No instability. No pain with hip motion. Examination of the right knee reveals well-healed incision. Some mild residual swelling. Range of motion 0-120. Good straight leg raise. X-RAYS: X-rays of the left knee were reviewed. It shows advanced left knee DJD. She has complete loss of her medial joint space. He has got osteophytes off the medial femoral condyle and medial tibial plateau. ASSESSMENT: A 71-year-old white female 5-1/2 months out from right knee replacement with advanced left knee degenerative joint disease. She would like to have her left knee replaced. PLAN: We will take her to the operating room and do a left total knee replacement. The risks and benefits of this procedure were explained to the patient including but not limited to DVT, PE, , infection, neurological injury, vascular injury, vascular, bleeding, pain, limited range of motion, stiffness, failure to relieve symptoms, incomplete relief of symptoms, need for further surgery in the future, fracture, leg length inequality, nerve palsy, etc. The patient understands and desires to proceed. Informed consent was obtained. We did talk to her about holding her lisinopril the morning of surgery and taking her metoprolol. She is hoping to be discharged to [facility]. If not, she will likely go home with [facility] home health program.
[~2017-07-13] VITALS: Ht 154.9 cm; Wt 84.1 kg
[2017-07-13] VITALS (10 sets, daily range): BP systolic 96–131; BP diastolic 55–77; PULSE 66–82; TEMP 36.5–37.5; O2SAT 94–100; Ht 154.9 cm; Wt 84.1 kg
[2017-07-13] MEDS ORDERED: LACTATED RINGER'S 1000ML 1,000 ML IV SCH (06:00)
[2017-07-13] MEDS ORDERED: LACTATED RINGER'S 1000ML 500 ML IV ONE (06:00)
[2017-07-13] MEDS ORDERED: SCOPOLAMINE 1.5 MG TDSY TD SCH (06:00)
[2017-07-13] MEDS ORDERED: BUPIVACAINE LIPOSOME 266 MG, BUPIVACAINE/EPINEPHRINE INJ 50 ML, SODIUM CHLORIDE 0.9% PF... INFIL SCH ×3 (06:00)
[2017-07-13] MEDS ORDERED: TRANEXAMIC ACID INJ 1,000 MG in SYRINGE 0 ML IV SCH (06:00)
[2017-07-13] MEDS ORDERED: FAMOTIDINE 20 MG TAB PO SCH (06:00)
[2017-07-13] MEDS ORDERED: LACTATED RINGER'S 1000ML IV SCH (06:00)
[2017-07-13] MEDS ORDERED: CEFAZOLIN 2000MG IV PUSH 10 ML IV SCH (06:00)
[2017-07-13] MEDS ORDERED: ACETAMINOPHEN 500 MG TAB PO SCH (06:00)
[2017-07-13] MEDS ORDERED: GABAPENTIN 300 MG CAP PO SCH (06:00)
[2017-07-13] MEDS ORDERED: METOCLOPRAMIDE HCL 10 MG TAB PO SCH (06:00)
[2017-07-13] MEDS ORDERED: BUPIVACAINE 0.5 % 5 MG/1 ML PF 10ML VIAL ONE (06:29)
[2017-07-13] MEDS ORDERED: BUPIVACAINE 0.25% 30 ML VIAL ONE (06:29)
[2017-07-13] MEDS ORDERED: MIDAZOLAM HCL 1 MG/ML 2ML VIAL ONE (07:37)
[2017-07-13] MEDS ORDERED: FENTANYL CITRATE INJ 50 MCG/1 ML 2 ML VIAL ONE (07:37)
[2017-07-13] MEDS ORDERED: FENTANYL CITRATE INJ 50 MCG/1 ML 2 ML VIAL IV PRN (08:00)
[2017-07-13] MEDS ORDERED: ATROPINE SULFATE 0.1 MG/ML 5ML SYR IV PRN (08:00)
[2017-07-13] MEDS ORDERED: EpHEDrine SULFATE INJ 50 MG/ML AMP IV PRN (08:00)
[2017-07-13] MEDS ORDERED: ONDANSETRON INJ 2 MG/ML 2 ML VIAL IV PRN ×2 (08:00→10:30)
[2017-07-13] MEDS ORDERED: BUPIVACAINE/EPINEPHRINE 0.25% 1:200,000 30 ML VIAL ONE (08:37)
[2017-07-13] MEDS ORDERED: BUPIVACAINE LIPOSOME 1/3% 266 MG/20 ML VIAL INFIL ONE (08:37)
[2017-07-13] MEDS ORDERED: SODIUM CHLORIDE 0.9% PF 50 ML VIAL ONE (08:37)
[2017-07-13] MEDS ORDERED: BACITRACIN 50000 UNIT VIAL ONE (08:37)
[2017-07-13] MEDS ORDERED: PHENYLEPHRINE 100MCG/ML 5ML SYR ONE (09:45)
[2017-07-13] MEDS ORDERED: PROPOFOL IV EMULSION 10 MG/ML 20 ML VIAL IV ONE (09:45)
--- NOTE | 2017-07-13 10:29 | [facility] Post Operative Brief Note ---
Immediate Operative Summary Operative Date Jul 13, 2017. Pre-Operative Diagnosis Advanced Left Knee Degenerative Joint Disease Post-Operative Diagnosis Advanced Left Knee Degenerative Joint Disease Procedure(s) Performed Left Total Knee Arthroplasty Surgeon Dr. Lobo Speech Lang Path Therapist Surgeon(s) VINAY Gil Estimated Blood Loss 50 ml Findings Left Knee DJD Fluids (cc crystalloids) 1500 cc Specimens A. Left Knee Bone and Tissue Drains None Anesthesia Spinal Complication(s) None Disposition Recovery Room / PACU
[2017-07-13] MEDS ORDERED: BISACODYL 10 MG SUPP PR PRN (10:30)
[2017-07-13] MEDS ORDERED: CEFAZOLIN IV 2,000 MG in DEXTROSE 5% 50ML 50 ML IV SCH (10:30)
[2017-07-13] MEDS ORDERED: HYDROmorphone INJ 0.5 MG/0.5 ML SYR IV PRN (10:30)
[2017-07-13] MEDS ORDERED: METOCLOPRAMIDE HCL INJ 5 MG/ML 2 ML VIAL IV PRN (10:30)
[2017-07-13] MEDS ORDERED: ALUMINUM/MAGNESIUM/SIMETH (MAALOX MAX) 30 ML UDC PO PRN (10:30)
[2017-07-13] MEDS ORDERED: SILVER SULFADIAZINE 1% CR 50 GM JAR EXT PRN (10:30)
[2017-07-13] MEDS ORDERED: TRAMADOL HCL 50 MG TAB PO PRN (10:30)
[2017-07-13] MEDS ORDERED: ZOLPIDEM TARTRATE 5 MG TAB PO PRN (10:30)
[2017-07-13] MEDS ORDERED: MAGNESIUM HYDROXIDE SUSP 30 ML UDC PO PRN (10:30)
--- NOTE | 2017-07-13 10:55 | OPERATIVE REPORT ---
DATE OF OPERATION: 07/13/2017 SURGEON: Garry Lobo MD CATERING CHEF: VINAY Xavier PREOPERATIVE DIAGNOSIS: Left knee degenerative joint disease. POSTOPERATIVE DIAGNOSIS: Same. PROCEDURE PERFORMED: Left cemented posterior stabilized total knee arthroplasty. COMPLICATIONS: None. ESTIMATED BLOOD LOSS: 50 mL. FLUID REPLACEMENT: 1500 mL crystalloid fluid replacement. ANESTHESIA: Spinal with adductor canal block. DRAINS: None. SPECIMENS: Left knee sent for pathology. TOURNIQUET TIME: 54 minutes at 300 mmHg. OPERATIVE INDICATIONS: The patient is a 71-year-old female who has had a long history of bilateral knee pain and discomfort. She has become less responsive to conservative treatment. She has really become debilitated by her pain and limited ability to ambulate. She had a right knee replacement 6 months ago and has done remarkably well from this. She elected to proceed with left total knee arthroplasty. OPERATIVE FINDINGS: Operative findings revealed advanced left knee DJD. She had extensive grade 4 changes in all 3 compartments, most severe in the medial side. She had a fixed varus deformity to her knee and a fairly stiff knee with about a 10-degree flexion contracture and can flex to about 105. There was no instability. Moderate to large knee effusion. OPERATIVE IMPLANTS: Operative implants consisted of: 1. Biomet Vanguard size 62.5 left posterior stabilized femoral component. 2. Biomet size 67 tibial tray. 3. A 10-mm posterior stabilized polyethylene insert. 4. A 31 x 8 all poly patella. OPERATIVE PROCEDURE: The patient was taken to the operating room, identified and placed on the operating table in the supine position. All contact areas were appropriately padded. IV antibiotics were provided by anesthesia team. A spinal anesthetic and adductor canal block had been provided in the holding area. Robertson catheter was placed in sterile fashion. Left thigh tourniquet was then placed and left lower extremity was then prepped and draped in the usual sterile fashion. The left leg was elevated and exsanguinated with Esmarch and tourniquet was placed at 300 mmHg. An anterior approach of the left knee was then performed through a longitudinal incision centered over the patella. Sharp dissection was carried out through the subcutaneous tissues down to the level of the extensor mechanism. A medial parapatellar arthrotomy incision was made. Some subperiosteal dissection was carried out medially. The fat pad was resected from beneath the patellar tendon. The lateral patellofemoral ligament was released. The patella was everted and knee was flexed. The osteophytes were taken off the distal femur. The ACL and PCL were then released from the distal femur. Of note, right ACL was pretty much nonexistent. The tibia was subluxated anteriorly. The external tibial alignment jig was then placed in the anterior face of the tibia and adjusted 16 mm medially. Proximal tibial cut was made to remove about a millimeter of bone from the most deficient aspect of the medial tibial plateau. Some osteophytes were taken off medial and posteromedially. The tibia was sized to a size 67. Attention was then drawn to the femur. The distal femur was entered with a sharp drill. Intramedullary canal was suctioned. A left 5-degree valgus cutting guide was placed. Distal femoral cutting block was pinned in place. Distal femoral cut was made to take an additional 3 mm of bone off the distal femur. The femur was then sized to a size 62.5. We downsized this almost the entire size due to the narrow medial lateral dimensions. The AP cutting block was pinned parallel to the epicondylar axis, which was 4 degrees of external rotation. The anterior cut, anterior chamfer, posterior cut, and posterior chamfer cuts were made. Box cutting guide was placed and adjusted slightly lateral and the box cut was made. The knee was flexed. The remnants of the medial and lateral menisci were excised. The osteophytes were taken off the posterior aspect of the femur. Trial femoral component was placed. Tibial tray was pinned in maximum external rotation and drill and stem punch were used to create defect in proximal tibia for the tibial tray. The knee was then trialed and the 10-mm insert fit most appropriately. Attention was then drawn to the patella. The patella was cleaned of all soft tissues. Patella thickness measured 22 mm in thickness and it was cut down to 14. It was sized to a size 31 patella. Lug holes were drilled for the 31 patella. Lateral osteophyte was removed. Patella button was placed. Knee was taken through range of motion and the patella tracked nicely with no thumbs test. Attention was then drawn toward placement of the permanent components. All trial components were removed. Bone plug was placed in the distal femur to limit blood loss. A double batch of Palacos G cement was mixed. A left size 62.5 posterior stabilized femoral component, size 67 tibial tray, a 10-mm posterior stabilized polyethylene insert, and a 31 x 8 all poly patella were then cemented in place. The knee was brought out into full extension until cement hardened. A final cement check was then performed. Pericapsular tissues were injected with a total of 100 mL of a combination of 20 mL of Exparel, 30 mL of normal saline, and 50 mL of 0.25% Marcaine with epinephrine. The patient did receive 1 gram of tranexamic acid. The tourniquet was then let down for final tourniquet time of 54 minutes. Hemostasis was assured with the use of electrocautery. The wound was once again irrigated. The extensor mechanism was then closed with a combination of #1 PDS suture and #1 Vicryl suture in a [id number] fashion. Extensor mechanism was checked and found to be intact. Subcutaneous tissues were then closed with 2-0 Dexon suture in buried interrupted fashion. Skin was closed skin adriana. Leg was then cleaned and dried and a sterile dressing of Xeroform, 4 x 4, sterile cast padding and En bandage were applied. The patient then transferred to the recovery room in stable condition. The patient tolerated the procedure well with no complications. All needle and sponge counts were correct at the end of the operation. I attest to the content of the Intraoperative Record and any orders documented therein. Any exception s are noted below.
--- NOTE | 2017-07-13 11:01 | DIAGNOSTIC IMAGING REPORT ---
LEFT KNEE 2 VIEWS History: Left total knee arthroplasty. Degenerative arthritis. Postop. FINDINGS: The patient is status post a left total knee arthroplasty. The hardware is intact. No fracture or dislocation. Skin adriana are in place. IMPRESSION: Left total knee arthroplasty. No evidence for hardware complication. Electronically signed by: Rai Dumont M.D. 07/13/2017 11:00 AM Dictated Date/Time: 07/13/2017 10:59 AM
--- NOTE | 2017-07-13 11:10 | Anesthesiology Progress Note ---
Anesthesia Post Op Note Date & Time Jul 13, 2017 at 11:09 Vital Signs Pain Intensity: 0 Vital Signs Past 12 Hours Date Time Temp Pulse Resp B/P (MAP) Pulse Ox O2 Delivery O2 Flow Rate FiO2 07/13/17 11:00 74 16 101/54 98 Nasal Cannula 2 07/13/17 10:50 87 16 109/58 100 Nasal Cannula 2 07/13/17 10:40 82 16 99/54 100 Oxymask 10 07/13/17 10:32 37.3 71 16 93/53 100 Oxymask 10 07/13/17 06:48 36.5 70 18 120/64 Room Air 97 Notes Mental Status: alert / awake / arousable, participated in evaluation Pt Amnestic to Procedure: Yes Nausea / Vomiting: adequately controlled Pain: adequately controlled Airway Patency, RR, SpO2: stable & adequate BP & HR: stable & adequate Hydration State: stable & adequate Neuraxial Anesthesia: was administered, sensory block is resolving Anesthetic Complications: no major complications apparent
[2017-07-13] MEDS: D5W AND 1/2NSS + 20MEQ KCL 1,000 ML IV SCH ×2 (12:29→22:40)
[2017-07-13] MEDS: FERROUS GLUCONATE 324 MG TAB PO SCH ×2 (13:03→19:30)
--- NOTE | 2017-07-13 14:11 | PROGRESS NOTE ---
DATE: 07/13/2017 SUBJECTIVE: A 71-year-old female postop from a left knee replacement. She is doing well. No pain at all, but cannot feel her legs yet either. No chest pain or shortness of breath. Not feeling dizzy or lightheaded. OBJECTIVE: VITAL SIGNS: Temperature is 36.6. Vital signs stable. GENERAL: Physical examination reveals a pleasant elderly female. She is sitting up in bed and looks pretty comfortable. LUNGS: Clear to auscultation. HEART: Regular rate and rhythm. ABDOMEN: Soft, nontender, and nondistended. EXTREMITIES: Grossly neurovascularly intact except as follows: Examination of the left leg reveals the leg to be well aligned. She had good distal pulses and brisk refill. No significant sensory or motor function yet. X-RAYS: X-rays of the left knee from recovery room were reviewed. It shows a cemented posterior stabilized total knee arthroplasty. Components looked to be in good position. No signs of problems. ASSESSMENT: A 71-year-old female postop from left knee replacement, doing well. Pain is controlled. Block is still in effect. PLAN: 1. DVT prophylaxis including thigh-high TEDs, SCDs, and aspirin twice a day. 2. PT/OT. Weight bear as tolerated. Left total knee protocol. 3. Pain control. Not having any pain yet. We will have to dose her meds as the spinal wears off. 4. IV antibiotics x24 hours. 5. Disposition: She is hoping to be discharged to home likely with some home health once medically stable.
[2017-07-13] MEDS: ACETAMINOPHEN 500 MG TAB PO SCH ×2 (14:44→21:40)
[2017-07-13] MEDS: CHECK SCOPOLAMINE PATCH PLACEMENT SCH (16:26)
[2017-07-13] MEDS: KETOROLAC TROMETHAMINE 15 MG/ML VIAL IV. SCH ×2 (16:28→21:40)
[2017-07-13] MEDS: CEFAZOLIN IV 2,000 MG in SYRINGE 0 ML IV SCH (16:29)
[2017-07-13] MEDS ORDERED: TRANEXAMIC ACID INJ 1,000 MG in SODIUM CHLORIDE 0.9% 100ML 100 ML IV SCH (17:00)
[2017-07-13] MEDS: DOCUSATE SODIUM 100 MG CAP PO SCH (21:00)
[2017-07-13] MEDS: SENNA 8.6 MG TAB PO SCH (21:30)
[2017-07-13] MEDS: ASPIRIN 325 MG ECTAB PO SCH (21:30)
[2017-07-13] MEDS: METOPROLOL SUCC 25MG EXT REL TAB PO SCH (21:32)
[2017-07-14] VITALS (8 sets, daily range): BP systolic 114–155; BP diastolic 70–83; PULSE 74–100; TEMP 36.8–37.5; O2SAT 92–97
[2017-07-14] MEDS: CEFAZOLIN IV 2,000 MG in SYRINGE 0 ML IV SCH (00:30)
[2017-07-14] MEDS: KETOROLAC TROMETHAMINE 15 MG/ML VIAL IV. SCH ×4 (03:38→21:54)
[2017-07-14] MEDS: ACETAMINOPHEN 500 MG TAB PO SCH ×3 (05:55→21:17)
[2017-07-14 06:42] LABS: HEMATOCRIT 32.1 % (37-47); MEAN CELL VOLUME 90.7 fL (80-100); MEAN CORPUSCULAR HEMOGLOBIN 29.7 pg (25-34); MEAN CORPUSCULAR HGB CONC 32.7 g/dl (32-36); MEAN PLATELET VOLUME 9.4 fL (7.4-10.4); PLATELET COUNT 200 K/uL (130-400); RED BLOOD COUNT 3.54 M/uL (4.2-5.4)
[2017-07-14 07:05] LABS: BUN/CREATININE RATIO 16.7 (10-20); CALCIUM 8.1 mg/dl (8.5-10.1); CREATININE 0.81 mg/dl (0.60-1.20); POTASSIUM 4.2 mmol/L (3.5-5.1)
[2017-07-14] MEDS ORDERED: ASPEC325 PO (07:58)
[2017-07-14] MEDS ORDERED: FRRG PO (07:58)
[2017-07-14] MEDS ORDERED: ULT50X PO (07:58)
[2017-07-14] MEDS ORDERED: ACET-24 PO (07:58)
--- NOTE | 2017-07-14 08:00 | Discharge Instructions ---
Discharge Instructions Date of Service Jul 14, 2017. Admission Reason for Admission: Left Knee Degenerative Joint Disease Discharge Discharge Diagnosis / Problem: Left Knee Replacement Discharge Goals Goal(s): Decrease discomfort, Improve function, Increase independence, Improve disease control, Therapeutic intervention Activity Recommendations Activity Limitations: per Instructions/Follow-up section Weightbearing Status: Left weightbearing . Instructions / Follow-Up Instructions / Follow-Up ACTIVITY RECOMMENDATIONS: Physical Therapy: * You will go to physical therapy three times each week for four to six weeks after your surgery in order to regain your knee range of motion and to retrain your knee to work properly. * It is just as important to make sure you are getting your knee perfectly straight as it is to regain your knee bend. * Taking a pain pill an hour before therapy can help you have a more productive and comfortable therapy session. Home Exercise: * You were shown a series of exercises (heel props, heel slides, etc.) in the hospital. Do these exercises three to four times each day including the exercises you were shown in physical therapy. Walking: * Get up and walk several times each day. For the first four weeks, try not to stand or walk for more than one hour at a time. If you do stand or walk for more than one hour, you will not hurt anything, but your knee and leg will likely swell. * As you feel comfortable, you may change from the walker or crutches to a cane and then to independent walking. MEDICATIONS: New Medicine: * You will likely be taking one or more of these medications: 1. Tramadol - A quick and shorter-acting pain medication. Take one to two tablets every four to six hours to lessen your pain. 2. Iron Sulfate - Take two times each day for the month after surgery to help you replace the blood lost during surgery. 3. Aspirin - Thins your blood to lessen the chance of forming a blood clot. * The most common side effects of pain medicine and iron are nausea and constipation. If nausea or constipation is too much of a problem or if you have any questions about your new medicines or doses, call [facility] at [phone]. We will try to help you manage these issues. VERY IMPORTANT TO READ AND REVIEW" Pain: * The immediate post-operative period after knee replacement surgery is often quite painful. * You are given a prescription for pain medicine. You should take it, as directed, when you need it, especially before physical therapy and before going to bed. Pain that interferes with sleep is very common and can last several months. * You will likely need pain medicine for the first four to six weeks. It will not stop all of the pain. The pain will lessen and as you feel better, you may change to milder pain medicine such as Tylenol. * The most common side effects of pain medicine are nausea and constipation, so don't take more than you need. SPECIAL CARE INSTRUCTIONS: TEDs/Elastic Stockings: * The white elastic stockings help limit swelling and prevent blood clots from forming in your legs. The more you wear them, the more they work. * Wear them for six weeks after knee replacement surgery and four weeks after partial knee replacement. Prevention of Infection: * Take antibiotics one hour before any dental cleaning, dental work, urological procedure, gastrointestinal procedure or any invasive surgery in order to prevent your new joint from getting infected. * You may get the antibiotics from the doctor performing the procedure or you may call our office at before and we will call in a prescription to the pharmacy of your choice. Things to Watch For: * Drainage from the incision site that occurs more than one week after your surgery. * Severely increased knee/leg pain or swelling. * Increased redness at the incision site. * Fever above 102 degrees Fahrenheit. * Unusual chest pain or shortness of breath. * Unusual pain or burning with urination. Call [facility] at with any of the above problems or if you have any questions about your medicines or recovery. FOLLOW UP VISIT: Make an appointment to see your doctor for approximately two weeks after surgery for a progress check and staple removal by calling the office at . Current Hospital Diet Patient's current hospital diet: Regular Diet Discharge Diet Recommended Diet: Regular Diet Procedures Procedures Performed: Left Total Knee Arthroplasty Pending Studies Studies pending at discharge: no Medical Emergencies . Who to Call and When: Medical Emergencies: If at any time you feel your situation is an emergency, please call [phone] immediately. . Non-Emergent Contact Non-Emergency issues call your: Surgeon . "Provider Documentation" section prepared by Garry Lobo. . VTE Core Measure Inpt VTE Proph given/why not?: Other Anticoagulation, T.E.D. Stockings, SCD's
[2017-07-14] MEDS: CHECK SCOPOLAMINE PATCH PLACEMENT SCH ×3 (08:21→15:44)
[2017-07-14] MEDS: D5W AND 1/2NSS + 20MEQ KCL 1,000 ML IV SCH (08:21)
[2017-07-14] MEDS: PANTOprazole SOD 40 MG TAB PO SCH (08:22)
[2017-07-14] MEDS: MULTIVITAMIN TAB PO SCH (08:22)
[2017-07-14] MEDS: FERROUS GLUCONATE 324 MG TAB PO SCH ×3 (08:23→18:30)
[2017-07-14] MEDS: DOCUSATE SODIUM 100 MG CAP PO SCH ×2 (08:23→21:17)
[2017-07-14] MEDS: ATORVASTATIN 10 MG TAB PO SCH (08:23)
[2017-07-14] MEDS: ASPIRIN 325 MG ECTAB PO SCH ×2 (08:23→21:17)
[2017-07-14] MEDS ORDERED: MULTIVITAMIN TAB PO SCH (09:00)
--- NOTE | 2017-07-14 10:50 | PROGRESS NOTE ---
DATE: 07/14/2017 SUBJECTIVE: A 71-year-old white female postop day #1 from left knee replacement. She is doing pretty well. Knee is quite sore, particularly in the quad area. Denies any chest pain or shortness of breath. Not feeling dizzy or lightheaded. No nausea. OBJECTIVE: VITAL SIGNS: Temperature 36.8. Vital signs stable. GENERAL: Physical examination reveals a pleasant elderly female. She is sitting up in bed and reading the newspaper when I visited her this morning. EXTREMITIES: Examination of the left leg reveals it to be well aligned. Dressing is clean, dry and intact. She can dorsiflex and plantarflex her foot appropriately. She is neurologically intact. LABORATORY DATA: Hemoglobin 10.5 and hematocrit 32.1. Electrolytes are stable. ASSESSMENT: A 71-year-old white female postop day #1 from a left knee replacement, doing pretty well. Mildly anemic, but without symptoms. Her neurological function has returned and now, the spinal has worn off. PLAN: 1. DVT prophylaxis including thigh-high TEDs, SCDs, and aspirin twice a day. 2. PT/OT. Weightbear as tolerated. Left total knee protocol. 3. Pain control. Doing well with current pain regimen. 4. Disposition: She is hoping to be discharged to home likely with some home health once adequately recovered.
--- NOTE | 2017-07-14 13:12 | Anesthesiology Progress Note ---
Anesthesia Post Op Note Date & Time Jul 14, 2017 at 13:11 Vital Signs Pain Intensity: 0.0 Vital Signs Past 12 Hours Date Time Temp Pulse Resp B/P (MAP) Pulse Ox O2 Delivery O2 Flow Rate FiO2 07/14/17 11:22 37.5 74 14 138/80 (99) 96 Room Air 07/14/17 07:40 96 Room Air 07/14/17 07:40 Room Air 07/14/17 07:37 36.8 74 14 138/78 (98) 96 Room Air 07/14/17 03:17 37.0 75 18 114/70 (85) 97 Room Air Notes Mental Status: alert / awake / arousable, participated in evaluation Pt Amnestic to Procedure: Yes Nausea / Vomiting: adequately controlled Pain: adequately controlled Airway Patency, RR, SpO2: stable & adequate BP & HR: stable & adequate Hydration State: stable & adequate Neuraxial Anesthesia: was administered, sensory block resolved Anesthetic Complications: no major complications apparent
[2017-07-14] MEDS: METOPROLOL SUCC 25MG EXT REL TAB PO SCH (21:17)
[2017-07-14] MEDS: SENNA 8.6 MG TAB PO SCH (21:17)
[2017-07-15] MEDS: CHECK SCOPOLAMINE PATCH PLACEMENT SCH ×2 (00:15→07:46)
[2017-07-15 03:30] VITALS: BP 144/73; PULSE 67; TEMP 36.8; O2SAT 95
[2017-07-15] MEDS: KETOROLAC TROMETHAMINE 15 MG/ML VIAL IV. SCH ×2 (04:18→09:21)
[2017-07-15 06:07] VITALS: BP 157/82; PULSE 95; TEMP 36.7; O2SAT 96
[2017-07-15] MEDS: ACETAMINOPHEN 500 MG TAB PO SCH (06:09)
--- NOTE | 2017-07-15 07:33 | PROGRESS NOTE ---
DATE: 07/15/2017 SUBJECTIVE: This is a 71-year-old white female postop day 2 from a left knee replacement. She is doing well. Pain seems to be better today. No chest pain or shortness of breath. Not feeling dizzy or lightheaded. OBJECTIVE: VITAL SIGNS: Temperature 36.7. Vital signs stable. GENERAL: A pleasant elderly female. She is sitting up with legs dangled over the side of her bed and looks pretty comfortable. She was reading an article. EXTREMITIES: Examination of the left knee reveals the dressing to be clean, dry and intact. No significant drainage. Her calf is soft and supple. She can dorsiflex and plantarflex her foot appropriately. ASSESSMENT: A 71-year-old female postop day 2 from a left knee replacement, doing pretty well. Pain is controlled. PLAN: 1. DVT prophylaxis including thigh-high TEDs, SCDs, and aspirin twice a day. 2. PT/OT. Weight bear as tolerated. Left total knee protocol. 3. Pain control, doing well with current pain regimen. 4. Disposition: Plan to discharge to home with some home health later today.
[2017-07-15] MEDS: DOCUSATE SODIUM 100 MG CAP PO SCH (07:47)
[2017-07-15] MEDS: FERROUS GLUCONATE 324 MG TAB PO SCH ×2 (07:47→11:56)
[2017-07-15] MEDS: ATORVASTATIN 10 MG TAB PO SCH (07:48)
[2017-07-15] MEDS: MULTIVITAMIN TAB PO SCH (07:48)
[2017-07-15] MEDS: ASPIRIN 325 MG ECTAB PO SCH (07:48)
[2017-07-15] MEDS: PANTOprazole SOD 40 MG TAB PO SCH (07:49)
[2017-07-15 09:25] VITALS: BP 157/82; PULSE 95; TEMP 36.7; O2SAT 96
== END 2017-07-15 13:49 | disposition home health service (06) | DRG 470 ==
LOC: C.ACU 05:57 → C.3E 06:40 → ENRESERV 10:52 → C.MSN 07-15 10:53 → C.3E 07-15 10:53
PROVIDERS: ADMIT Orthopaedic Surgery Sports Medicine; ATTEND Orthopaedic Surgery Sports Medicine
PROC: 0SRD0J9 Replacement of Left Knee Joint with Synthetic Substitute, Cemented, Open Approach (ICD-10-PCS; principal; 2017-07-13 08:45)
DX: M17.12 Unilateral primary osteoarthritis, left knee (principal); I48.0 Paroxysmal atrial fibrillation; E78.00 Pure hypercholesterolemia, unspecified; I10 Essential (primary) hypertension; E66.9 Obesity, unspecified; Z68.35 Body mass index [BMI] 35.0-35.9, adult; Z96.651 Presence of right artificial knee joint; Z79.82 Long term (current) use of aspirin; Z79.899 Other long term (current) drug therapy

== ENCOUNTER 2021-02-06 10:52 | Inpatient (IN) ==
[2021-02-06] MEDS ORDERED: METOPROLOL TARTRATE 1 MG/ML VIAL IV STA ×2 (11:22→12:33)
[2021-02-06] MEDS ORDERED: DOXYCYCLINE HYCLATE 100 MG in DEXTROSE 5% 100 ML IV STA (11:24)
[2021-02-06] MEDS ORDERED: SODIUM CHLORIDE 0.9% 500 ML IV SCH (11:30)
[2021-02-06] MEDS ORDERED: SODIUM CHLORIDE 0.9% 1000ML 1,000 ML IV SCH (11:30)
[2021-02-06 11:37] LABS: Basophils # (auto) 0.01 K/uL (0-0.2); Basophils % (auto) 0.1 %; Hematocrit (blood only) 42.9 % (37-47); Hemoglobin 14.4 g/dL (12.0-16.0); Immature Granulocytes # (auto) 0.03 K/uL (0.00-0.02); Immature Granulocytes % (auto) 0.4 %; Lymphocytes # (auto) 0.42 K/uL (1.2-3.4); Lymphocytes % (auto) 5.4 %; Mean Corpuscular Hemoglobin 30.2 pg (25-34); Mean Corpuscular Hgb Conc 33.6 g/dL (32-36); Mean Corpuscular Volume 89.9 fL (80-100); Mean Platelet Volume 9.7 fL (7.4-10.4); Monocytes # (auto) 0.28 K/uL (0.11-0.59); Monocytes % (auto) 3.6 %; Neutrophils # (auto) 7.06 K/uL (1.4-6.5); Neutrophils % (auto) 90.5 %; Platelet Count 218 K/uL (130-400); RDW Standard Deviation 46.8 fL (36.4-46.3); Red Blood Count 4.77 M/uL (4.2-5.4)
--- NOTE | 2021-02-06 11:53 | Emergency Department Note ---
History of Present Illness General Chief complaint: Weakness Stated complaint: NO STRENGH IN ARMS & LEGS-HOT/COLD Time Seen by Provider: 02/06/21 11:03 Source: patient, family (daughter) and RN notes reviewed Mode of arrival: ambulatory Limitations: no limitations History of Present Illness Provider complaint: weakness, fall, rash on leg This pt is a 75 yo female who presents to the ED with c/o weakness, inability to get out of bed. Pt states she has had a significant decline over the last 2 days and this morning even with 's assistance couldn't get OOB. She ended up falling but denies significant head injury. She is anticoagulated d/t h/o atrial fibrillation. Pt has bilateral knee replacements. She is also concerned with a R thigh rash that has developed. She frequently has tick bites. She has had hot/cold spells, but not measured temperatures. No vomiting, cough. Denies missing med doses. Home Medications Medication Instructions Recorded Confirmed Type Eliquis 5 mg PO BID 02/06/21 02/06/21 History amoxicillin 2,000 mg PO ONCE 02/06/21 02/06/21 History ascorbic acid (vitamin C) [Vitamin 500 mg PO BID 02/06/21 02/06/21 History C] aspirin 81 mg PO QAM 02/06/21 02/06/21 History atorvastatin 10 mg PO PM 02/06/21 02/06/21 History lisinopril 10 mg PO QAM 02/06/21 02/06/21 History multivitamin 1 tab PO QAM 02/06/21 02/06/21 History doxycycline hyclate 100 mg PO BID 10 Days #20 tab 02/10/21 Rx metoprolol succinate 50 mg PO BID #60 tab 02/10/21 Rx Allergies Allergy/AdvReac Type Severity Reaction Status Date / Time No Known Allergies Allergy Verified 02/06/21 11:52 Past Med/Surg History Medical History 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 " Dyslipidemia Hypertension Hyperthyroidism LBBB (left bundle branch block) Left knee DJD LVH (left ventricular hypertrophy) due to hypertensive disease Right knee DJD Silent thyroiditis Surgical History H/O breast surgery " L breast, benign" History of total knee arthroplasty S/P tonsillectomy and adenoidectomy Family History Father Hypertension Diabetes Kidney disease Brother Hypertension Mother Heart disease Social History Smoking Status: Never smoker Hx Alcohol Use: No Hx Substance Use: No Preferred Language: Welsh Communication Ability: Effective Learning Development Specialist Required: No Beliefs That Will Affect Care: None Current Living Situation: Spouse Feels Safe at Home: Yes Assistive Devices: Walker Review of Systems See HPI for pertinent positives & negatives. and A total of 10 systems reviewed and were otherwise negative Physical Exam Vital Signs Vital Signs - 24 hr 02/06/21 10:57 02/06/21 11:05 02/06/21 11:09 Temperature 37.0 C Temperature Source Oral Pulse Rate 128 H 120 H 122 H Pulse Rate [Finger] Pulse Rhythm Regular Pulse Rhythm [Finger] Pulse Strength Normal Pulse Strength [Finger] Respiratory Rate 20 25 H 22 Respiratory Effort / Characteristics Non-Labored Respiratory Depth Normal Respiratory Pattern Blood Pressure 109/69 111/71 Blood Pressure [Right Arm] Blood Pressure Mean 82 84 Blood Pressure Mean [Right Arm] Blood Pressure Position [Right Arm] Pulse Oximetry 97 Oxygen Delivery Method Room Air Sepsis Recent Fever Within 48 Hours No Sepsis New/Unexplained Change in Mental Status N/A Sepsis Action Taken by Nursing No Action Required 02/06/21 11:23 02/06/21 11:28 Temperature Temperature Source Pulse Rate 120 H Pulse Rate [Finger] 120 H Pulse Rhythm Irregular Pulse Rhythm [Finger] Irregular Pulse Strength Pulse Strength [Finger] Normal Respiratory Rate 18 18 Respiratory Effort / Characteristics Non-Labored Respiratory Depth Normal Respiratory Pattern Regular Blood Pressure Blood Pressure [Right Arm] 111/71 Blood Pressure Mean Blood Pressure Mean [Right Arm] 84 Blood Pressure Position [Right Arm] Lying Pulse Oximetry 98 97 Oxygen Delivery Method Room Air Room Air Sepsis Recent Fever Within 48 Hours Sepsis New/Unexplained Change in Mental Status Sepsis Action Taken by Nursing Vital signs reviewed. Tachycardia General: Well-appearing 75 yo female, in no significant distress. HEENT: No scleral icterus, PERRLA, neck supple. Atraumatic. Cardiovascular: Rapid and irregular, no extra sounds. Pulmonary: Clear to auscultation bilaterally, normal work of breathing. Abdomen: Soft, nontender, nondistended, positive bowel sounds. Musculoskeletal: Atraumatic, no peripheral edema. Neurologic: Patient awake alert and oriented x 3 Skin: Warm, dry, 7 cm bulleye rash to medial R thigh Course Administered Medications Discontinued Medications Acetaminophen (Acetaminophen 325 Mg Tab) 650 mg PO Q4H PRN PRN Reason: Pain or Fever Stop: 03/08/21 15:38 Last Admin: 02/07/21 08:02 Dose: 650 mg Documented by: [id number] Admin: 02/06/21 19:52 Dose: 650 mg Documented by: [id number] Apixaban (Apixaban 5 Mg Tablet) 5 mg PO BID [facility] Stop: 03/12/21 08:59 Last Admin: 02/10/21 09:18 Dose: 5 mg Documented by: [id number] Aspirin (Aspirin 81 Mg Ectab) 81 mg PO QAM [facility] Stop: 03/09/21 08:59 Last Admin: 02/10/21 09:18 Dose: 81 mg Documented by: [id number] Admin: 02/09/21 07:58 Dose: 81 mg Documented by: [id number] Admin: 02/08/21 07:55 Dose: 81 mg Documented by: [id number] Admin: 02/07/21 08:01 Dose: 81 mg Documented by: [id number] Atorvastatin Calcium (Atorvastatin 10 Mg Tab) 10 mg PO PM [facility] Stop: 03/08/21 20:59 Last Admin: 02/09/21 21:17 Dose: 10 mg Documented by: [id number] Admin: 02/08/21 20:24 Dose: 10 mg Documented by: [id number] Admin: 02/07/21 21:10 Dose: 10 mg Documented by: [id number] Admin: 02/06/21 20:22 Dose: 10 mg Documented by: [id number] Heparin Sodium/Dextrose (Heparin Iv Adult Wt-Based Standard *No* Bolus Protocol) 1 ea N/A ONE ONE; Protocol Stop: 02/06/21 13:41 Last Admin: 02/06/21 14:39 Dose: 1 ea Documented by: [id number] Sodium Chloride (Nss) 500 mls @ 999 mls/hr IV .Q31M ASYA Stop: 02/06/21 12:00 Last Infusion: 02/06/21 15:42 Dose: 0 mls/hr Documented by: [id number] Admin: 02/06/21 12:10 Dose: 999 mls/hr Documented by: [id number] Sodium Chloride (Nss 1000ml) 1,000 mls @ 125 mls/hr IV .Q8H ASYA Stop: 02/06/21 19:29 Last Infusion: 02/07/21 17:37 Dose: 0 mls/hr Documented by: [id number] Admin: 02/06/21 12:45 Dose: 125 mls/hr Documented by: [id number] Doxycycline Hyclate 100 mg/ (Dextrose) 110 mls @ 50 mls/hr IV NOW STA Stop: 02/06/21 13:35 Last Infusion: 02/06/21 14:39 Dose: 0 mls/hr Documented by: [id number] Admin: 02/06/21 12:10 Dose: 50 mls/hr Documented by: [id number] Heparin Sodium/Dextrose (Heparin Sodium/Dextrose) 25,000 units in 500 mls @ 22 mls/hr IV .[id number] ASYA; Protocol Stop: 02/10/21 09:00 Last Titration: 02/10/21 09:00 Dose: 0 units/hr, 0 mls/hr Documented by: [id number] Cosigned by: [id number] Titration: 02/09/21 18:43 Dose: 1,050 units/hr, 21 mls/hr Documented by: [id number] Cosigned by: [id number] Admin: 02/09/21 18:03 Dose: 1,050 units/hr, 21 mls/hr Documented by: [id number] Cosigned by: [id number] Titration: 02/09/21 16:51 Dose: 1,050 units/hr, 21 mls/hr Documented by: [id number] Cosigned by: [id number] Titration: 02/09/21 06:51 Dose: 1,050 units/hr, 21 mls/hr Documented by: [id number] Cosigned by: [id number] Titration: 02/08/21 18:50 Dose: 1,050 units/hr, 21 mls/hr Documented by: [id number] Cosigned by: [id number] Admin: 02/08/21 17:02 Dose: 1,050 units/hr, 21 mls/hr Documented by: [id number] Cosigned by: [id number] Titration: 02/08/21 17:02 Dose: 1,050 units/hr, 21 mls/hr Documented by: [id number] Cosigned by: [id number] Admin: 02/08/21 12:27 Dose: Not Given Documented by: [id number] Titration: 02/08/21 12:26 Dose: 1,050 units/hr, 21 mls/hr Documented by: [id number] Cosigned by: [id number] Admin: 02/07/21 17:15 Dose: 1,050 units/hr, 21 mls/hr Documented by: [id number] Cosigned by: [id number] Titration: 02/07/21 17:15 Dose: 1,050 units/hr, 21 mls/hr Documented by: [id number] Cosigned by: [id number] Titration: 02/07/21 13:46 Dose: 1,050 units/hr, 21 mls/hr Documented by: [id number] Cosigned by: [id number] Titration: 02/07/21 07:15 Dose: 1,050 units/hr, 21 mls/hr Documented by: [id number] Cosigned by: [id number] Titration: 02/07/21 07:07 Dose: 21 units/hr, 0.4 mls/hr Documented by: [id number] Cosigned by: [id number] Titration: 02/06/21 22:59 Dose: 22 units/hr, 0.4 mls/hr Documented by: [id number] Cosigned by: [id number] Admin: 02/06/21 14:36 Dose: 22 units/hr, 0.4 mls/hr Documented by: [id number] Cosigned by: [id number] Potassium Chloride/Sodium Chloride (Normal Saline W/20 Meq Kcl) 20 meq in 1,000 mls @ 100 mls/hr IV .Q10H ASYA Stop: 02/07/21 11:59 Last Infusion: 02/07/21 12:38 Dose: 0 mls/hr Documented by: [id number] Admin: 02/07/21 01:50 Dose: 100 mls/hr Documented by: [id number] Infusion: 02/07/21 01:50 Dose: 100 mls/hr Documented by: [id number] Admin: 02/06/21 16:00 Dose: 100 mls/hr Documented by: [id number] Doxycycline Hyclate 100 mg/ (Dextrose) 110 mls @ 50 mls/hr IV Q12H ASYA Stop: 02/17/21 00:00 Last Infusion: 02/10/21 13:14 Dose: 0 mls/hr Documented by: [id number] Admin: 02/10/21 11:19 Dose: 50 mls/hr Documented by: [id number] Infusion: 02/10/21 02:40 Dose: 0 mls/hr Documented by: [id number] Admin: 02/10/21 00:26 Dose: 50 mls/hr Documented by: [id number] Infusion: 02/09/21 15:41 Dose: 0 mls/hr Documented by: [id number] Admin: 02/09/21 12:41 Dose: 50 mls/hr Documented by: [id number] Infusion: 02/09/21 03:00 Dose: 0 mls/hr Documented by: [id number] Admin: 02/09/21 00:42 Dose: 50 mls/hr Documented by: [id number] Infusion: 02/08/21 14:37 Dose: 0 mls/hr Documented by: [id number] Admin: 02/08/21 12:24 Dose: 50 mls/hr Documented by: [id number] Infusion: 02/08/21 04:16 Dose: 0 mls/hr Documented by: [id number] Admin: 02/07/21 23:56 Dose: 50 mls/hr Documented by: [id number] Infusion: 02/07/21 15:11 Dose: 0 mls/hr Documented by: [id number] Admin: 02/07/21 12:35 Dose: 50 mls/hr Documented by: [id number] Infusion: 02/07/21 12:35 Dose: 0 mls/hr Documented by: [id number] Infusion: 02/07/21 01:52 Dose: 0 mls/hr Documented by: [id number] Admin: 02/06/21 23:50 Dose: 50 mls/hr Documented by: [id number] Ceftriaxone Sodium 2,000 mg/ (Dextrose) 70 mls @ 100 mls/hr IV DAILY ASYA; Protocol Stop: 02/16/21 19:59 Last Infusion: 02/10/21 10:21 Dose: 0 mls/hr Documented by: [id number] Admin: 02/10/21 09:21 Dose: 100 mls/hr Documented by: [id number] Infusion: 02/09/21 10:52 Dose: 0 mls/hr Documented by: [id number] Admin: 02/09/21 09:01 Dose: 100 mls/hr Documented by: [id number] Infusion: 02/08/21 09:02 Dose: 0 mls/hr Documented by: [id number] Admin: 02/08/21 07:57 Dose: 100 mls/hr Documented by: [id number] Infusion: 02/07/21 10:02 Dose: 0 mls/hr Documented by: [id number] Admin: 02/07/21 08:01 Dose: 100 mls/hr Documented by: [id number] Infusion: 02/06/21 21:00 Dose: 100 mls/hr Documented by: [id number] Admin: 02/06/21 20:18 Dose: 100 mls/hr Documented by: [id number] Sodium Chloride (Nss 1000ml) 1,000 mls @ 80 mls/hr IV .[id number] ASYA Stop: 03/09/21 10:29 Last Admin: 02/10/21 13:16 Dose: Not Given Documented by: [id number] Infusion: 02/10/21 13:15 Dose: 0 mls/hr Documented by: [id number] Admin: 02/09/21 21:16 Dose: 80 mls/hr Documented by: [id number] Infusion: 02/09/21 18:22 Dose: 80 mls/hr Documented by: [id number] Admin: 02/09/21 05:52 Dose: 80 mls/hr Documented by: [id number] Infusion: 02/08/21 17:39 Dose: 80 mls/hr Documented by: [id number] Admin: 02/08/21 13:24 Dose: Not Given Documented by: [id number] Admin: 02/07/21 23:56 Dose: 80 mls/hr Documented by: [id number] Infusion: 02/07/21 23:56 Dose: 80 mls/hr Documented by: [id number] Admin: 02/07/21 12:34 Dose: 80 mls/hr Documented by: [id number] Potassium Phosphate 15 mmol/ (Sodium Chloride) 255 mls @ 88 mls/hr IV ONE ONE Stop: 02/08/21 13:23 Last Infusion: 02/08/21 17:39 Dose: 0 mls/hr Documented by: [id number] Admin: 02/08/21 14:36 Dose: 88 mls/hr Documented by: [id number] Lisinopril (Lisinopril 10 Mg Tab) 10 mg PO QAM [facility] Stop: 03/12/21 08:59 Last Admin: 02/10/21 09:18 Dose: 10 mg Documented by: [id number] Metoprolol Succinate (Metoprolol Succ 50mg Ext Rel Tab) 50 mg PO BID ASYA Stop: 03/10/21 08:59 Last Admin: 02/10/21 09:18 Dose: 50 mg Documented by: [id number] Admin: 02/09/21 21:17 Dose: 50 mg Documented by: [id number] Admin: 02/09/21 07:58 Dose: 50 mg Documented by: [id number] Admin: 02/08/21 20:24 Dose: 50 mg Documented by: [id number] Admin: 02/08/21 09:01 Dose: 50 mg Documented by: [id number] Metoprolol Tartrate (Metoprolol Tartrate 1 Mg/Ml Vial) 5 mg IV NOW STA Stop: 02/06/21 11:23 Last Admin: 02/06/21 11:33 Dose: 5 mg Documented by: [id number] Metoprolol Tartrate (Metoprolol Tartrate 1 Mg/Ml Vial) 5 mg IV NOW STA Stop: 02/06/21 12:34 Last Admin: 02/06/21 15:42 Dose: Not Given Documented by: [id number] Metoprolol Tartrate (Metoprolol Tartrate 1 Mg/Ml Vial) 2.5 mg IV Q6 PRN PRN Reason: Tachycardia Stop: 03/08/21 13:39 Last Admin: 02/06/21 18:04 Dose: 2.5 mg Documented by: [id number] Metoprolol Tartrate (Metoprolol Tartrate 25 Mg Tab) 25 mg PO Q6 ASYA Stop: 03/08/21 18:14 Last Admin: 02/08/21 06:12 Dose: 25 mg Documented by: [id number] Admin: 02/07/21 23:58 Dose: 25 mg Documented by: [id number] Admin: 02/07/21 17:20 Dose: 25 mg Documented by: [id number] Admin: 02/07/21 12:34 Dose: Not Given Documented by: [id number] Admin: 02/07/21 05:32 Dose: 25 mg Documented by: [id number] Admin: 02/06/21 23:55 Dose: Not Given Documented by: [id number] Admin: 02/06/21 19:28 Dose: 25 mg Documented by: [id number] Miscellaneous (Heparin Infusion~Stop Order) 1 ea N/A ONE ONE Stop: 02/10/21 07:46 Last Admin: 02/10/21 09:00 Dose: 1 ea Documented by: [id number] Potassium Chloride (Potassium Chloride Crtab 20 Meq Tabcr) 40 meq PO NOW STA Stop: 02/06/21 13:41 Last Admin: 02/06/21 14:40 Dose: 40 meq Documented by: [id number] Potassium Chloride (Potassium Chloride Crtab 20 Meq Tabcr) 40 meq PO NOW STA Stop: 02/09/21 07:31 Last Admin: 02/09/21 07:57 Dose: 40 meq Documented by: [id number] Potassium Phosphate (Pot Phosphate Monobasic W/ Sod Tab) 1 tab PO QID ASYA Stop: 03/10/21 12:59 Last Admin: 02/10/21 13:57 Dose: Not Given Documented by: [id number] Admin: 02/10/21 09:18 Dose: 1 tab Documented by: [id number] Admin: 02/09/21 21:17 Dose: 1 tab Documented by: [id number] Admin: 02/09/21 18:04 Dose: 1 tab Documented by: [id number] Admin: 02/09/21 16:04 Dose: 1 tab Documented by: [id number] Admin: 02/09/21 07:58 Dose: 1 tab Documented by: [id number] Admin: 02/08/21 20:24 Dose: 1 tab Documented by: [id number] Admin: 02/08/21 17:03 Dose: 1 tab Documented by: [id number] Admin: 02/08/21 12:24 Dose: 1 tab Documented by: [id number] Critical Care Time Critical Care Time: Yes I have personally spent 32 minutes of critical care time in the direct management of this patient. This was a life/limb threatening event. This 32 minutes is in excess of all separately billable procedures. Medical Decision Making Differential Diagnosis Infection, dehydration, metabolic abnormality, hypo/hyperglycemia, electrolyte disturbance, anemia, hypoxia, cardiac sources, intracerebral event, toxicologic, neurologic, as well as other pathologies. Medical Records Attestation: I reviewed the patient's medical records. Home Medications Current Medication List: was personally reviewed by me Laboratory Data Attestation: I reviewed the patient's lab results. Result diagrams: 02/10/21 05:58 02/10/21 05:58 Lab Results 02/06/21 02/06/2102/06/21 Range/Units 11:17 11:17 11:17 WBC 7.80 (4.8-10.8) K/uL RBC 4.77 (4.2-5.4) M/uL Hgb 14.4 (12.0-16.0) g/dL Hct 42.9 (37-47) % MCV 89.9 (80-100) fL MCH 30.2 (25-34) pg MCHC 33.6 (32-36) g/dL RDW Std Deviation 46.8 H (36.4-46.3) fL RDW Coeff of Dl 14.0 (11.5-14.5) % Plt Count 218 (130-400) K/uL MPV 9.7 (7.4-10.4) fL Immature Gran % (Auto) 0.4 % Neut % (Auto) 90.5 % Lymph % (Auto) 5.4 % Brantley % (Auto) 3.6 % Eos % (Auto) 0.0 % Baso % (Auto) 0.1 % Neut # (Auto) 7.06 H (1.4-6.5) K/uL Lymph # (Auto) 0.42 L (1.2-3.4) K/uL Brantley # (Auto) 0.28 (0.11-0.59) K/uL Eos # (Auto) 0.00 (0-0.5) K/uL Baso # (Auto) 0.01 (0-0.2) K/uL Immature Gran # (Auto) 0.03 H (0.00-0.02) K/uL RBC Morphology Unremarkable Sodium 137 (136-145) mmol/L Potassium 3.6 (3.5-5.1) mmol/L Chloride 105 (98-107) mmol/L Carbon Dioxide 23 (21-32) mmol/L Anion Gap 9.0 (3-11) BUN 24 H (7-18) mg/dl Creatinine 1.20 (0.6-1.2) mg/dl Est Cr Clr Drug Dosing 40.5 ml/min Est GFR ( Amer) 51.9 ml/min Est GFR (Non-Af Amer) 44.8 ml/min BUN/Creatinine Ratio 19.8 (10-20) Glucose 110 H (70-99) mg/dl Lactate (0.4-2.0) mmol/L Calcium 9.1 (8.5-10.1) mg/dl Magnesium 2.3 (1.8-2.4) mg/dl Total Bilirubin 0.5 (0.2-1) mg/dl AST 193 H (15-37) U/L ALT 65 (12-78) U/L Alkaline Phosphatase 73 (45-117) U/L Troponin I 0.159 H* (0-0.045) ng/ml Total Protein 7.8 (6.4-8.2) gm/dl Albumin 3.7 (3.4-5.0) gm/dl Globulin 4.1 H (2.5-4.0) gm/dl Albumin/Globulin Ratio 0.9 (0.9-2) TSH 0.209 L (0.300-4.500) uIu/ml Free T4 1.24 (0.8-1.6) ng/dl Anaplasma Smear Cancelled See Comment A. phagocytophilum DNA (Not Detected) Babesia microti IgG Ab (<1:64) titer Babesia microti IgM Ab (<1:20) titer Babesia Interpretation Lyme Disease IgG Ab (Negative) Lyme IgG (Western Blot) (NEGATIVE) Lyme IgG 18 kDa Band Lyme IgG 23 kDa Band Lyme IgG 28 kDa Band Lyme IgG 30 kDa Band Lyme IgG 39 kDa Band Lyme IgG 41 kDa Band Lyme IgG 45 kDa Band Lyme IgG 58 kDa Band Lyme IgG 66 kDa Band Lyme IgG 93 kDa Band Lyme IgM Ab (WB) (NEGATIVE) Lyme Disease IgM Ab (Negative) Lyme IgM 23 kDa Band Lyme IgM 39 kDa Band Lyme IgM 41 kDa Band COVID-19 Eval Order SARS-CoV-2 (PCR) (Negative) 02/06/21 02/06/21 02/06/21 Range/Units 11:17 11:17 11:17 WBC (4.8-10.8) K/uL RBC (4.2-5.4) M/uL Hgb (12.0-16.0) g/dL Hct (37-47) % MCV (80-100) fL MCH (25-34) pg MCHC (32-36) g/dL RDW Std Deviation (36.4-46.3) fL RDW Coeff of Dl (11.5-14.5) % Plt Count (130-400) K/uL MPV (7.4-10.4) fL Immature Gran % (Auto) % Neut % (Auto) % Lymph % (Auto) % Brantley % (Auto) % Eos % (Auto) % Baso % (Auto) % Neut # (Auto) (1.4-6.5) K/uL Lymph # (Auto) (1.2-3.4) K/uL Brantley # (Auto) (0.11-0.59) K/uL Eos # (Auto) (0-0.5) K/uL Baso # (Auto) (0-0.2) K/uL Immature Gran # (Auto) (0.00-0.02) K/uL RBC Morphology Sodium (136-145) mmol/L Potassium (3.5-5.1) mmol/L Chloride (98-107) mmol/L Carbon Dioxide (21-32) mmol/L Anion Gap (3-11) BUN (7-18) mg/dl Creatinine (0.6-1.2) mg/dl Est Cr Clr Drug Dosing ml/min Est GFR ( Amer) ml/min Est GFR (Non-Af Amer) ml/min BUN/Creatinine Ratio (10-20) Glucose (70-99) mg/dl Lactate (0.4-2.0) mmol/L Calcium (8.5-10.1) mg/dl Magnesium (1.8-2.4) mg/dl Total Bilirubin (0.2-1) mg/dl AST (15-37) U/L ALT (12-78) U/L Alkaline Phosphatase (45-117) U/L Troponin I (0-0.045) ng/ml Total Protein (6.4-8.2) gm/dl Albumin (3.4-5.0) gm/dl Globulin (2.5-4.0) gm/dl Albumin/Globulin Ratio (0.9-2) TSH (0.300-4.500) uIu/ml Free T4 (0.8-1.6) ng/dl Anaplasma Smear A. phagocytophilum DNA Detected A (Not Detected) Babesia microti IgG Ab <1:64 (<1:64) titer Babesia microti IgM Ab <1:20 (<1:20) titer Babesia Interpretation see note Lyme Disease IgG Ab Positive A (Negative) Lyme IgG (Western Blot) POSITIVE A (NEGATIVE) Lyme IgG 18 kDa Band REACTIVE A Lyme IgG 23 kDa Band REACTIVE A Lyme IgG 28 kDa Band NON-REACTIVE Lyme IgG 30 kDa Band NON-REACTIVE Lyme IgG 39 kDa Band REACTIVE A Lyme IgG 41 kDa Band REACTIVE A Lyme IgG 45 kDa Band NON-REACTIVE Lyme IgG 58 kDa Band REACTIVE A Lyme IgG 66 kDa Band NON-REACTIVE Lyme IgG 93 kDa Band NON-REACTIVE Lyme IgM Ab (WB) NEGATIVE (NEGATIVE) Lyme Disease IgM Ab Positive A (Negative) Lyme IgM 23 kDa Band REACTIVE A Lyme IgM 39 kDa Band NON-REACTIVE Lyme IgM 41 kDa Band NON-REACTIVE COVID-19 Eval Order SARS-CoV-2 (PCR) (Negative) 02/06/21 02/06/21 02/06/21 Range/Units 12:07 12:46 12:46 WBC (4.8-10.8) K/uL RBC (4.2-5.4) M/uL Hgb (12.0-16.0) g/dL Hct (37-47) % MCV (80-100) fL MCH (25-34) pg MCHC (32-36) g/dL RDW Std Deviation (36.4-46.3) fL RDW Coeff of Dl (11.5-14.5) % Plt Count (130-400) K/uL MPV (7.4-10.4) fL Immature Gran % (Auto) % Neut % (Auto) % Lymph % (Auto) % Brantley % (Auto) % Eos % (Auto) % Baso % (Auto) % Neut # (Auto) (1.4-6.5) K/uL Lymph # (Auto) (1.2-3.4) K/uL Brantley # (Auto) (0.11-0.59) K/uL Eos # (Auto) (0-0.5) K/uL Baso # (Auto) (0-0.2) K/uL Immature Gran # (Auto) (0.00-0.02) K/uL RBC Morphology Sodium (136-145) mmol/L Potassium (3.5-5.1) mmol/L Chloride (98-107) mmol/L Carbon Dioxide (21-32) mmol/L Anion Gap (3-11) BUN (7-18) mg/dl Creatinine (0.6-1.2) mg/dl Est Cr Clr Drug Dosing ml/min Est GFR ( Amer) ml/min Est GFR (Non-Af Amer) ml/min BUN/Creatinine Ratio (10-20) Glucose (70-99) mg/dl Lactate 1.7 (0.4-2.0) mmol/L Calcium (8.5-10.1) mg/dl Magnesium (1.8-2.4) mg/dl Total Bilirubin (0.2-1) mg/dl AST (15-37) U/L ALT (12-78) U/L Alkaline Phosphatase (45-117) U/L Troponin I (0-0.045) ng/ml Total Protein (6.4-8.2) gm/dl Albumin (3.4-5.0) gm/dl Globulin (2.5-4.0) gm/dl Albumin/Globulin Ratio (0.9-2) TSH (0.300-4.500) uIu/ml Free T4 (0.8-1.6) ng/dl Anaplasma Smear A. phagocytophilum DNA (Not Detected) Babesia microti IgG Ab (<1:64) titer Babesia microti IgM Ab (<1:20) titer Babesia Interpretation Lyme Disease IgG Ab (Negative) Lyme IgG (Western Blot) (NEGATIVE) Lyme IgG 18 kDa Band Lyme IgG 23 kDa Band Lyme IgG 28 kDa Band Lyme IgG 30 kDa Band Lyme IgG 39 kDa Band Lyme IgG 41 kDa Band Lyme IgG 45 kDa Band Lyme IgG 58 kDa Band Lyme IgG 66 kDa Band Lyme IgG 93 kDa Band Lyme IgM Ab (WB) (NEGATIVE) Lyme Disease IgM Ab (Negative) Lyme IgM 23 kDa Band Lyme IgM 39 kDa Band Lyme IgM 41 kDa Band COVID-19 Eval Order Covid19 at [facility] SARS-CoV-2 (PCR) NEGATIVE (Negative) Imaging Data Radiologist's Impression: Chest X-Ray 02/06/21 11:22 SINGLE VIEW CHEST CLINICAL HISTORY: Generalized weakness. FINDINGS: An AP, portable, upright chest radiograph is compared to chest x-ray and chest CT dated 11/15/2015. The heart is mildly enlarged noting atherosclerotic calcification of the thoracic aorta. The pulmonary vasculature is noncongested. Chronic interstitial thickening is similar to previous. There is no airspace consolidation or large pleural effusion. No pneumothorax is seen. The skeletal structures are osteopenic. The bony thorax is grossly intact. Arthritic change is noted in the shoulders and thoracic spine. IMPRESSION: Mild cardiomegaly with no active disease in the chest. ACT 112: Negative or not required by law. Electronically signed by: Ja Morales M.D. 02/06/2021 11:[address] 02/06/21 11:22 CT SCAN OF THE BRAIN WITHOUT IV CONTRAST CLINICAL HISTORY: Generalized weakness. COMPARISON STUDY: No priors. TECHNIQUE: Unenhanced axial CT scan of the brain is performed from the vertex to the skull base. A dose lowering technique was utilized adhering to the principles of ALARA. CT DOSE: 729.78 mGycm FINDINGS: Brain parenchyma: There is mild age-related involutional change. There is no hemorrhage, mass effect, or evidence of acute territorial ischemia by CT criteria. Duran-white matter differentiation is preserved. No extra-axial fluid collection is seen. Ventricles, sulci, cisterns: Prominent secondary to involutional change. Intracranial vasculature: There is minimal atherosclerotic calcification of the cavernous carotid arteries. Calvarium: Unremarkable. Sinuses and mastoids: The visualized paranasal sinuses are clear. The mastoid air cells are well pneumatized. Orbits: The bony orbits are grossly intact. IMPRESSION: There is no hemorrhage, mass effect, or evidence of acute territorial ischemia by CT criteria. ACT 112: Negative or not required by law. Electronically signed by: Ja Morales M.D. 02/06/2021 11:59 AM ECG Data Attestation: I personally reviewed and interpreted this ECG as follows: Indication: + tachycardia and + weakness Rate (beats per minute): 114 Rhythm: + atrial fibrillation ECG Intervals/blocks: + Left bundle branch block and + Prolonged QT Blood Pressure Blood Pressure Findings: Low blood pressure Blood Pressure Disposition: further management by hospitalist Head Trauma GCS Score: 15 MDM Narrative This pt was evaluated and appeared to be in no distress. IV access was obtained and lab work was drawn. An order for cardiac monitoring was placed and the pt was noted to be in a rapid atrial fibrillation at 120 bpm. CXR reveals mild cardiomegaly without acute process. Lab work reveals a mild elevation of the troponin and positive lyme titers. IV doxycycline was administered. Pt was given IV metoprolol for rate control and IVF d/t low BP. Pt was feeling improved on my reevaluation and HR was better controlled. Head CT was negative for acute IC abnl. Pt case was d/w the hospitalist service for further jens gment. Impression & Plan Atrial fibrillation with rapid ventricular response, LBBB (left bundle branch block), Lyme disease Discharge Plan Visit Data Chief Complaint: Weakness Stated Complaint: NO STRENGH IN ARMS & LEGS-HOT/COLD ED Provider: Ines Apple Discharge Problem: Atrial fibrillation with rapid ventricular response, LBBB (left bundle branch block), Lyme disease Patient Disposition: Admitted As Inpatient Discharge Instructions Interventions: ED Discharge Assessment Last Done: 02/06/21 15:22
--- NOTE | 2021-02-06 11:53 | XRay Report ---
SINGLE VIEW CHEST CLINICAL HISTORY: Generalized weakness. FINDINGS: An AP, portable, upright chest radiograph is compared to chest x-ray and chest CT dated 11/14. The heart is mildly enlarged noting atherosclerotic calcification of the thoracic aorta. The p ulmonary vasculature is noncongested. Chronic interstitial thickening is similar to previous. There i s no airspace consolidation or large pleural effusion. No pneumothorax is seen. The skeletal structur es are osteopenic. The bony thorax is grossly intact. Arthritic change is noted in the shoulders and thoracic spine. IMPRESSION: Mild cardiomegaly with no active disease in the chest. ACT 112: Negative or not required by law. Electronically signed by: Ja Morales M.D. 02/06/2021 11:52 AM
[2021-02-06 11:57] LABS: Albumin Level 3.7 gm/dl (3.4-5.0); BUN Creatinine Ratio 19.8 (10-20); Calcium 9.1 mg/dl (8.5-10.1); Creatinine Clr Calc Pharmacy 40.5 ml/min; Est GFR (African American) 51.9 ml/min; Est GFR (Non-African American) 44.8 ml/min; Magnesium 2.3 mg/dl (1.8-2.4); Potassium 3.6 mmol/L (3.5-5.1)
--- NOTE | 2021-02-06 12:01 | CT Scan Report ---
CT SCAN OF THE BRAIN WITHOUT IV CONTRAST CLINICAL HISTORY: Generalized weakness. COMPARISON STUDY: No priors. TECHNIQUE: Unenhanced axial CT scan of the brain is performed from the vertex to the skull base. A do se lowering technique was utilized adhering to the principles of ALARA. CT DOSE: 729.78 mGycm FINDINGS: Brain parenchyma: There is mild age-related involutional change. There is no hemorrhage, mass effect, or evidence of acute territorial ischemia by CT criteria. Duran-white matter differentiation is prese rved. No extra-axial fluid collection is seen. Ventricles, sulci, cisterns: Prominent secondary to involutional change. Intracranial vasculature: There is minimal atherosclerotic calcification of the cavernous carotid art eries. Calvarium: Unremarkable. Sinuses and mastoids: The visualized paranasal sinuses are clear. The mastoid air cells are well pneu matized. Orbits: The bony orbits are grossly intact. IMPRESSION: There is no hemorrhage, mass effect, or evidence of acute territorial ischemia by CT jerrellt ludmila. ACT 112: Negative or not required by law. Electronically signed by: Ja Morales M.D. 02/06/2021 11:59 AM
[2021-02-06 12:03] LABS: RBC Morphology Unremarkable
[2021-02-06 12:20] LABS: Lyme Ab IgG w/WB Rflx Positive (Negative); Lyme Ab IgM w/WB Rflx Positive (Negative)
[2021-02-06 12:21] LABS: Albumin Globulin Ratio 0.9 (0.9-2); Bilirubin,Total 0.5 mg/dl (0.2-1); Globulin 4.1 gm/dl (2.5-4.0); Thyroid Stimulating Hormone 0.209 uIu/ml (0.300-4.500); Total Protein 7.8 gm/dl (6.4-8.2); Troponin I 0.159 ng/ml (0-0.045)
[2021-02-06 12:44] LABS: T4 Free Thyroxine 1.24 ng/dl (0.8-1.6)
[2021-02-06] MEDS ORDERED: METOPROLOL TARTRATE 1 MG/ML VIAL IV PRN (13:40)
[2021-02-06] MEDS ORDERED: POTASSIUM CHLORIDE CRTAB 20 MEQ TABCR PO STA (13:40)
[2021-02-06] MEDS ORDERED: Heparin IV Adult Wt-Based Standard *NO* Bolus Protocol ONE (13:40)
--- NOTE | 2021-02-06 13:59 | History & Physical Report ---
Date of Service February 06, 2021 Assessment & Plan (1) Atrial fibrillation with rapid ventricular response: Pt denies any recent missed doses of rate-control medications. - Admit to PCU for monitoring - Metoprolol tartrate 50 mg po BID with additional PRN IV ordered - Check ECHO - Trend troponin - may be elevated due to demand from rapid rate but will follow, especially if pt develops any cardiac symptoms - EKG in AM x 2 more days - HOLD Eliquis for now due to elevated troponin (in case pt needs additional cardiac intervention such as path) - will start heparin drip, no bolus - Potassium supplement - follow labs - IV hydration (2) Lyme disease: Rash suspicious for erythema migrans, especially with known history of multiple tick bites - Confirmatory serologies pending - Will treat empirically with doxycycline 100 mg BID x 14 days - Check peripheral smear for anaplasmosis - AST elevated on labs today - recheck in AM (3) Weakness: Multi-factorial - IVF hydration - PT/OT consult (4) Hypertension: Will hold Lisinopril for now due to borderline BP in the ED - Continuing beta-tye as per #1 (5) Dyslipidemia: - Check lipid panel in AM - Continue statin Pt seen and evaluated with collaborating physician, Dr. Frias. Plan of care discussed and as outlined above. Code status: Full Code DVT prophylaxis: heparin gtt Hayden Delarosa PA-C History of Present Illness Chief Complaint: Weakness Primary Care Provider: Gemma Garsia DO This is a 75 y/o female with a hx of PAF on chronic AC, HTN, dyslipidemia, prior Lyme in 2019, and DJD who presents to the ED today for progressive weakness. Over the past two days, she has noticed gradually progressive weakness in her arms and legs, such that this AM, she was unable to get out of bed and fell. She reports that she did not injure herself in the fall, but that she came to the ED because of the progressive weakness interfering with her ADLs. She reports a a tight bandlike discomfort in her head during the same time. She also complaints of a worsening rash on her right thigh. She reports at lest 5 known tick bites in 2020, most recently removing a tick two days. She reports a similar rash last year for which she was diagnosed with possible Lyme disease and treated with a 14 day course of doxycycline. She did note chills yesterday but denies documented fever. Her shoulders are achy bilaterally today but denies other significant joint pain. She denies chest pain, palpitations, shortness of breath, N/V/D, abdominal pain. No recent travel. She has not gotten the COVID vaccine. Allergies Allergy/AdvReac Type Severity Reaction Status Date / Time No Known Allergies Allergy Verified 02/06/21 11:52 Home Medications Medication Instructions Recorded Confirmed Type amoxicillin 2,000 mg PO ONCE 02/06/21 02/06/21 History apixaban [Eliquis] 5 mg PO BID 02/06/21 02/06/21 History ascorbic acid (vitamin C) [Vitamin 500 mg PO BID 02/06/21 02/06/21 History C] aspirin 81 mg PO QAM 02/06/21 02/06/21 History atorvastatin 10 mg PO PM 02/06/21 02/06/21 History lisinopril 10 mg PO QAM 02/06/21 02/06/21 History metoprolol succinate 25 mg PO PM 02/06/21 02/06/21 History multivitamin 1 tab PO QAM 02/06/21 02/06/21 History Past Med/Surg History Medical History 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 " Dyslipidemia Hypertension Hyperthyroidism LBBB (left bundle branch block) Left knee DJD LVH (left ventricular hypertrophy) due to hypertensive disease Right knee DJD Silent thyroiditis Surgical History H/O breast surgery " L breast, benign" History of total knee arthroplasty S/P tonsillectomy and adenoidectomy Family History Father Hypertension Diabetes Kidney disease Brother Hypertension Mother Heart disease Social History Smoking Status: Never smoker Feels Safe at Home: Yes Review of Systems Review of Systems: All systems reviewed & are unremarkable except as noted in HPI & below Constitutional: + chills, + fatigue and + weakness; no fever Eyes: no diplopia and no worsening vision Ear, Nose, Mouth, Throat: no nasal congestion, no sore throat and no dysphagia Respiratory: no cough, no dyspnea and no wheezing Cardiovascular: no chest pain, no palpitations, no syncope and no edema Gastrointestinal: no abdominal pain, no nausea, no vomiting, no diarrhea/loose stools and no blood in stools Genitourinary: no dysuria, no urinary frequency and no hematuria Musculoskeletal: + joint pain (bilateral shoulder "achiness"); no back pain and no neck pain Integumentary: + rash Neurologic: + unsteadiness, + falls (this morning when trying to get out of bed) and + generalized weakness Psychiatric: no depression and no anxiety Physical Exam Constitutional: WD/WN, vitals as above no acute distress Eyes: + anicteric sclerae; no conjunctival abnormality Neck: trachea midline Respiratory: no respiratory distress and no labored breathing Auscultation: lungs clear to auscultation bilaterally; no rales, no rhonchi and no wheezes Cardiovascular: Rate/Rhythm: regular rate and + irregularly irregular Vessels: dorsalis pedis pulses present and radial pulses present; no carotid bruit Extremities: normal capillary refill; no edema Gastrointestinal (Abdomen): Inspection/Auscultation: normal bowel sounds; abdomen not distended Percussion/Palpation: abdomen soft; abdomen nontender Musculoskeletal: Head/Neck/Chest: normocephalic, head atraumatic and neck supple Extremities: no cyanosis and no clubbing Skin: ~6 cm diameter erythematous circular rash on medial right thigh with central darkening of erythema - no open area or active drainage Two circular areas of ecchymosis bilateral anterior shoulder Neurologic: no focal motor deficits Speech / Cognition: normal speech Motor/Sensory: no tremor Psychiatric: A+Ox3, euthymic affect Results & Data Results & Data ([facility]) Vital Signs (Past 12 Hours) Vital Signs Temp Pulse Pulse Resp BP BP Pulse Ox 02/06/21 13:31 82 21 02/06/21 13:30 88 19 99/57 L 02/06/21 13:01 84 20 02/06/21 13:00 80 20 90/61 L 02/06/21 12:54 88 21 100/62 02/06/21 12:31 78 21 02/06/21 12:30 77 23 95/51 L 02/06/21 12:01 93 H 22 02/06/21 12:00 94 H 21 95/59 L 02/06/21 11:30 100 H 25 H 88/59 L 02/06/21 11:28 120 H 18 97 02/06/21 11:23 120 H 18 111/71 98 02/06/21 11:09 122 H 22 02/06/21 11:05 120 H 25 H 111/71 02/06/21 10:57 37.0 C 128 H 20 109/69 97 Laboratory Results Laboratory Results - last 24 hr 02/06/21 02/06/21 02/06/21 11:17 11:17 11:17 WBC 7.80 RBC 4.77 Hgb 14.4 Hct 42.9 MCV 89.9 MCH 30.2 MCHC 33.6 RDW Std Deviation 46.8 H RDW Coeff of Dl 14.0 Plt Count 218 MPV 9.7 Immature Gran % (Auto) 0.4 Neut % (Auto) 90.5 Lymph % (Auto) 5.4 Bartholomew % (Auto) 3.6 Eos % (Auto) 0.0 Baso % (Auto) 0.1 Neut # (Auto) 7.06 H Lymph # (Auto) 0.42 L Bartholomew # (Auto) 0.28 Eos # (Auto) 0.00 Baso # (Auto) 0.01 Immature Gran # (Auto) 0.03 H RBC Morphology Unremarkable Sodium 137 Potassium 3.6 Chloride 105 Carbon Dioxide 23 Anion Gap 9.0 BUN 24 H Creatinine 1.20 Est Cr Clr Drug Dosing 40.5 Est GFR ( Amer) 51.9 Est GFR (Non-Af Amer) 44.8 BUN/Creatinine Ratio 19.8 Glucose 110 H Lactate Calcium 9.1 Magnesium 2.3 Total Bilirubin 0.5 AST 193 H ALT 65 Alkaline Phosphatase 73 Troponin I 0.159 H* Total Protein 7.8 Albumin 3.7 Globulin 4.1 H Albumin/Globulin Ratio 0.9 TSH 0.209 L Free T4 1.24 Anaplasma Smear Cancelled See Comment A. phagocytophilum DNA Babesia microti IgG Ab Babesia microti IgM Ab Babesia Interpretation Lyme Disease IgG Ab Lyme IgG (Western Blot) Lyme IgG 18 kDa Band Lyme IgG 23 kDa Band Lyme IgG 28 kDa Band Lyme IgG 30 kDa Band Lyme IgG 39 kDa Band Lyme IgG 41 kDa Band Lyme IgG 45 kDa Band Lyme IgG 58 kDa Band Lyme IgG 66 kDa Band Lyme IgG 93 kDa Band Lyme IgM Ab (WB) Lyme Disease IgM Ab Lyme IgM 23 kDa Band Lyme IgM 39 kDa Band Lyme IgM 41 kDa Band COVID-19 Eval Order SARS-CoV-2 (PCR) 02/06/21 02/06/21 02/06/21 11:17 11:17 11:17 WBC RBC Hgb Hct MCV MCH MCHC RDW Std Deviation RDW Coeff of Dl Plt Count MPV Immature Gran % (Auto) Neut % (Auto) Lymph % (Auto) Bartholomew % (Auto) Eos % (Auto) Baso % (Auto) Neut # (Auto) Lymph # (Auto) Bartholomew # (Auto) Eos # (Auto) Baso # (Auto) Immature Gran # (Auto) RBC Morphology Sodium Potassium Chloride Carbon Dioxide Anion Gap BUN Creatinine Est Cr Clr Drug Dosing Est GFR ( Amer) Est GFR (Non-Af Amer) BUN/Creatinine Ratio Glucose Lactate Calcium Magnesium Total Bilirubin AST ALT Alkaline Phosphatase Troponin I Total Protein Albumin Globulin Albumin/Globulin Ratio TSH Free T4 Anaplasma Smear A. phagocytophilum DNA Pending Babesia microti IgG Ab Pending Babesia microti IgM Ab Pending Babesia Interpretation Pending Lyme Disease IgG Ab Positive A Lyme IgG (Western Blot) Pending Lyme IgG 18 kDa Band Pending Lyme IgG 23 kDa Band Pending Lyme IgG 28 kDa Band Pending Lyme IgG 30 kDa Band Pending Lyme IgG 39 kDa Band Pending Lyme IgG 41 kDa Band Pending Lyme IgG 45 kDa Band Pending Lyme IgG 58 kDa Band Pending Lyme IgG 66 kDa Band Pending Lyme IgG 93 kDa Band Pending Lyme IgM Ab (WB) Pending Lyme Disease IgM Ab Positive A Lyme IgM 23 kDa Band Pending Lyme IgM 39 kDa Band Pending Lyme IgM 41 kDa Band Pending COVID-19 Eval Order SARS-CoV-2 (PCR) 02/06/21 02/06/21 02/06/21 12:07 12:46 12:46 WBC RBC Hgb Hct MCV MCH MCHC RDW Std Deviation RDW Coeff of Dl Plt Count MPV Immature Gran % (Auto) Neut % (Auto) Lymph % (Auto) Bartholomew % (Auto) Eos % (Auto) Baso % (Auto) Neut # (Auto) Lymph # (Auto) Bartholomew # (Auto) Eos # (Auto) Baso # (Auto) Immature Gran # (Auto) RBC Morphology Sodium Potassium Chloride Carbon Dioxide Anion Gap BUN Creatinine Est Cr Clr Drug Dosing Est GFR ( Amer) Est GFR (Non-Af Amer) BUN/Creatinine Ratio Glucose Lactate 1.7 Calcium Magnesium Total Bilirubin AST ALT Alkaline Phosphatase Troponin I Total Protein Albumin Globulin Albumin/Globulin Ratio TSH Free T4 Anaplasma Smear A. phagocytophilum DNA Babesia microti IgG Ab Babesia microti IgM Ab Babesia Interpretation Lyme Disease IgG Ab Lyme IgG (Western Blot) Lyme IgG 18 kDa Band Lyme IgG 23 kDa Band Lyme IgG 28 kDa Band Lyme IgG 30 kDa Band Lyme IgG 39 kDa Band Lyme IgG 41 kDa Band Lyme IgG 45 kDa Band Lyme IgG 58 kDa Band Lyme IgG 66 kDa Band Lyme IgG 93 kDa Band Lyme IgM Ab (WB) Lyme Disease IgM Ab Lyme IgM 23 kDa Band Lyme IgM 39 kDa Band Lyme IgM 41 kDa Band COVID-19 Eval Order Covid19 at [facility] SARS-CoV-2 (PCR) Pending Diagnostic Findings Chest X-ray 02/06/21 - IMPRESSION: Mild cardiomegaly with no active disease in the chest. CT Head 02/06/21 - IMPRESSION: There is no hemorrhage, mass effect, or evidence of acute territorial ischemia by CT criteria. Medications Administered Sodium Chloride (Nss 1000ml) 1,000 mls @ 125 mls/hr IV .Q8H ASYA Stop: 02/06/21 19:29 Last Admin: 02/06/21 12:45 Dose: 125 mls/hr Documented by: [id number] Discontinued Medications Sodium Chloride (Nss) 500 mls @ 999 mls/hr IV .Q31M ASYA Stop: 02/06/21 12:00 Last Admin: 02/06/21 12:10 Dose: 999 mls/hr Documented by: [id number] Doxycycline Hyclate 100 mg/ (Dextrose) 110 mls @ 50 mls/hr IV NOW STA Stop: 02/06/21 13:35 Last Admin: 02/06/21 12:10 Dose: 50 mls/hr Documented by: [id number] Metoprolol Tartrate (Metoprolol Tartrate 1 Mg/Ml Vial) 5 mg IV NOW STA Stop: 02/06/21 11:23 Last Admin: 02/06/21 11:33 Dose: 5 mg Documented by: [id number] Code Status & VTE Plan VTE Prophylaxis Plan VTE Prophylaxis will be ordered: Yes Supervising Physician Co-Signing Physician Notes Patient is a 75-year-old female with history of paroxysmal atrial fibrillation on chronic anticoagulation with Eliquis, hypertension, hyperlipidemia, H/O Lyme disease and other medical problems presents with history of generalized weakness, right lower extremity rash, tick bite. Patient admits to having multiple tick bites this year, last being 2 days ago which she removed the tick. She denies being treated for tick disease. She was found to be in A. fib RVR while in ED. She denied any chest pain, palpitations, dizziness, nausea, dyspnea, fever, chills. Patient's family also informed that she has been wobbly with her ambulation. Patient denies any headache, change in vision, focal weakness. Please review HPI for complete details of presentation. CT head showed no acute intracranial findings. Chest x-ray showed mild cardiomegaly with no acute disease in the chest. Patient was also noted to have elevated AST at 193, troponin elevated at 0.159. TSH is low 0.2 normal free T4. On exam patient is moderately built and nourished, no apparent distress, normocephalic atraumatic, lungs are clear to auscultation, normal breath sounds, irregularly irregular rhythm, rate controlled, no obvious murmur, no pedal edema, abdomen soft, nontender, normal bowel sounds, alert, awake, oriented, + no focal deficits, right lower extremity with erythematous rash. Patient is admitted for management of A. fib RVR, elevated troponins to rule out ACS, Lyme's disease. Patient heart rate is controlled after receiving IV Lopressor while in ED. Will increase metoprolol to 50 mg twice a day. Will hold Eliquis and start on IV heparin for now. Will replace potassium to keep around 4.0. Will consult cardiology. Check resting echo. Repeat EKG in the morning. Start on doxycycline for Lyme's disease. Will check peripheral smear for anaplasmosis. Monitor LFTs. Fall precautions, PT OT requested. Patient will need repeat thyroid function tests as outpatient. Will give gentle IV fluids. I personally reviewed the record. Patient is interviewed and examined at bedside. Patient's care is coordinated with Alyx Delarosa PA-C. Please refer to the documentation above for details of patient's presentation and for discussion of other issues. (1) Hypertension Hypertension type: essential hypertension Qualified Code(s): I10 - Essential (primary) hypertension
[2021-02-06] MEDS: HEPARIN SODIUM/DEXTROSE 25,000 UNITS/500 ML BAG IV SCH (14:36)
[2021-02-06] MEDS: NSS + 20MEQ KCL 20 MEQ/1,000 ML BAG IV SCH (16:00)
--- NOTE | 2021-02-06 19:24 | Cardiology Consultation ---
Date of Consultation February 06, 2021 Assessment & Plan (1) Paroxysmal atrial fibrillation with RVR: Titrate metoprolol tartrate to 25 mg every 6 hours. I suspect rapid atrial fibrillation currently driven by infectious process, acute Lyme disease with fever. Continue rate control strategy during hospitalization, however, external direct- current cardioversion may be considered when patient is afebrile and Lyme disease treated. Mildly elevated troponin noted secondary to demand ischemia in the setting of cute Lyme disease and atrial fibrillation with rapid ventricular response. No regional wall motion abnormalities per echocardiogram. ECG is nondiagnostic due to left bundle branch block. Continue oral anticoagulation with Eliquis. (2) Lyme disease: Western blot pending. Continue antibiotics per internal medicine. (3) Mitral regurgitation: Moderate in the setting of atrial fibrillation with rapid ventricular response. No signs/symptoms of decompensated heart failure or pulmonary hypertension. Treatment of atrial fibrillation as noted above. (4) Aortic regurgitation: Mild progression compared to most recent echocardiogram. No specific treatment is indicated at this time. Routine, repeat imaging in 1 year. History of Present Illness Reason for Consultation: Paroxysmal atrial fibrillation with rapid ventricular response Requesting Physician: Dr. Frias Attending Physician: Waylon Frias MD History of Present Illness 75-year-old female presented to the emergency department due to weakness and chills. ECG confirming atrial fibrillation with rapid ventricular response. Carries a history of paroxysmal atrial fibrillation chronically anticoagulated with Eliquis. Patient notes recent multiple tick bites with a right lower extremity rash possibly consistent with erythema migrans. Fever recorded on admission. Treated with doxycycline. Denies chest pain or shortness of breath. No lightheadedness, dizziness, syncope, or near syncope. Allergies Allergy/AdvReac Type Severity Reaction Status Date / Time No Known Allergies Allergy Verified 02/06/21 11:52 Home Medications Medication Instructions Recorded Confirmed Type amoxicillin 2,000 mg PO ONCE 02/06/21 02/06/21 History apixaban [Eliquis] 5 mg PO BID 02/06/21 02/06/21 History ascorbic acid (vitamin C) [Vitamin 500 mg PO BID 02/06/21 02/06/21 History C] aspirin 81 mg PO QAM 02/06/21 02/06/21 History atorvastatin 10 mg PO PM 02/06/21 02/06/21 History lisinopril 10 mg PO QAM 02/06/21 02/06/21 History metoprolol succinate 25 mg PO PM 02/06/21 02/06/21 History multivitamin 1 tab PO QAM 02/06/21 02/06/21 History Patient History Medical History 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 " Dyslipidemia Hypertension Hyperthyroidism LBBB (left bundle branch block) Left knee DJD LVH (left ventricular hypertrophy) due to hypertensive disease Right knee DJD Silent thyroiditis Surgical History H/O breast surgery " L breast, benign" History of total knee arthroplasty S/P tonsillectomy and adenoidectomy Family History Father Hypertension Diabetes Kidney disease Brother Hypertension Mother Heart disease Social History Smoking Status: Never smoker Hx Alcohol Use: No Hx Substance Use: No Preferred Language: Singaporean Communication Ability: Effective Cleaner Touch Up Worker Required: No Beliefs That Will Affect Care: None Current Living Situation: Spouse Other Information That Helps Us Care for You: No Feels Safe at Home: Yes Safety Concerns: Feels Safe At This Time Assistive Devices: Glasses Review of Systems Review of Systems: All systems reviewed & are unremarkable except as noted in Subjective Physical Exam Constitutional: well developed and well nourished; no acute distress Respiratory: normal respiratory effort; no respiratory distress and no labored breathing Auscultation: lungs clear to auscultation bilaterally; breath sounds present, no diminished lung sounds, no crackles, no rales, no rhonchi and no wheezes Cardiovascular: Rate/Rhythm: + tachycardic and + irregularly irregular H eart Sounds: + murmur (2/6 midsystolic murmur heard best at the apex) Vessels: no JVD Extremities: no edema Gastrointestinal (Abdomen): Inspection/Auscultation: normal bowel sounds Percussion/Palpation: abdomen soft; abdomen nontender, no guarding and abdomen not rigid Neurologic: CN's II-XI intact bilaterally and moves all extremities; no focal motor deficits Motor/Sensory: no tremor Psychiatric: A+Ox3, euthymic affect Results & Data ([facility]) Vital Signs (Past 12 Hours) Vital Signs Temp Pulse Pulse Pulse Resp BP BP 02/06/21 19:04 39.4 C H 109 H 20 108/83 02/06/21 18:04 121 H 107/74 02/06/21 18:03 121 H 107/74 02/06/21 16:29 36.7 C 109 H 20 02/06/21 15:22 36.2 C L 78 18 88/54 L 02/06/21 15:01 76 22 02/06/21 15:00 78 19 92/54 L 02/06/21 14:31 81 21 02/06/21 14:30 92 H 17 88/56 L 02/06/21 14:01 86 18 02/06/21 14:00 86 20 114/61 02/06/21 13:31 82 21 02/06/21 13:30 88 19 99/57 L 02/06/21 13:01 84 20 02/06/21 13:00 80 20 90/61 L 02/06/21 12:54 88 21 100/62 02/06/21 12:31 78 21 02/06/21 12:30 77 23 95/51 L 02/06/21 12:01 93 H 22 02/06/21 12:00 94 H 21 95/59 L 02/06/21 11:30 100 H 25 H 88/59 L 02/06/21 11:28 120 H 18 02/06/21 11:23 120 H 18 02/06/21 11:09 122 H 22 02/06/21 11:05 120 H 25 H 111/71 02/06/21 10:57 37.0 C 128 H 20 109/69 BP Pulse Ox 02/06/21 19:04 96 02/06/21 18:04 02/06/21 18:03 02/06/21 16:29 99/52 L 02/06/21 15:22 99 02/06/21 15:01 02/06/21 15:00 02/06/21 14:31 02/06/21 14:30 02/06/21 14:01 02/06/21 14:00 02/06/21 13:31 02/06/21 13:30 02/06/21 13:01 02/06/21 13:00 02/06/21 12:54 02/06/21 12:31 02/06/21 12:30 02/06/21 12:01 02/06/21 12:00 02/06/21 11:30 02/06/21 11:28 97 02/06/21 11:23 111/71 98 02/06/21 11:09 02/06/21 11:05 02/06/21 10:57 97
[2021-02-06] MEDS: METOPROLOL TARTRATE 25 MG TAB PO SCH ×2 (19:28→23:55)
[2021-02-06] MEDS: ACETAMINOPHEN 325 MG TAB PO PRN (19:52)
[2021-02-06] MEDS: cefTRIAXone SODIUM 2,000 MG in DEXTROSE 5% 50 ML IV SCH (20:18)
[2021-02-06] MEDS: ATORVASTATIN 10 MG TAB PO SCH (20:22)
[2021-02-06] MEDS ORDERED: DOXYCYCLINE HYCLATE 100 MG CAP PO SCH (21:00)
[2021-02-06] MEDS ORDERED: METOPROLOL TARTRATE 50 MG TAB PO SCH (21:00)
[2021-02-06 21:28] LABS: Partial Thromboplastin Ratio 2.2
[2021-02-06 21:57] LABS: Partial Thromboplastin Time 57.2 Seconds (21.0-31.0)
[2021-02-06] MEDS: DOXYCYCLINE HYCLATE 100 MG in DEXTROSE 5% 100 ML IV SCH (23:50)
[2021-02-07] MEDS: NSS + 20MEQ KCL 20 MEQ/1,000 ML BAG IV SCH (01:50)
[2021-02-07] MEDS: METOPROLOL TARTRATE 25 MG TAB PO SCH ×4 (05:32→23:58)
--- NOTE | 2021-02-07 06:09 | Electrocardiogram Report ---
Test Reason : Blood Pressure : / mmHG Vent. Rate : 114 BPM Atrial Rate : 163 BPM P-R Int : 000 ms QRS Dur : 156 ms QT Int : 390 ms P-R-T Axes : 000 -18 112 degrees QTc Int : 537 ms Atrial fibrillation with rapid ventricular response Left bundle branch block Abnormal ECG When compared with ECG of 14-DEC-2016 13:18, Atrial fibrillation has replaced Sinus rhythm Vent. rate has increased BY 49 BPM Confirmed by Jose Arriaga ([id number]) on 02/07/2021 6:08:34 AM Referred By: REFERRED SELF Confirmed By:Jose Arriaga
[2021-02-07 06:15] LABS: Basophils # (auto) 0.01 K/uL (0-0.2); Basophils % (auto) 0.2 %; Hematocrit (blood only) 38.6 % (37-47); Hemoglobin 12.7 g/dL (12.0-16.0); Immature Granulocytes # (auto) 0.01 K/uL (0.00-0.02); Immature Granulocytes % (auto) 0.2 %; Lymphocytes # (auto) 0.69 K/uL (1.2-3.4); Lymphocytes % (auto) 14.5 %; Mean Corpuscular Hgb Conc 32.9 g/dL (32-36); Mean Platelet Volume 9.3 fL (7.4-10.4); Monocytes # (auto) 0.19 K/uL (0.11-0.59); Neutrophils # (auto) 3.86 K/uL (1.4-6.5); Neutrophils % (auto) 81.1 %; Platelet Count 151 K/uL (130-400); RDW Coefficient of Variation 14.5 % (11.5-14.5); RDW Standard Deviation 48.8 fL (36.4-46.3); Red Blood Count 4.24 M/uL (4.2-5.4); White Blood Count 4.76 K/uL (4.8-10.8)
[2021-02-07 06:33] LABS: Partial Thromboplastin Ratio 2.9
[2021-02-07 06:42] LABS: Partial Thromboplastin Time 75.2 Seconds (21.0-31.0)
[2021-02-07 06:53] LABS: Albumin Level 2.9 gm/dl (3.4-5.0); BUN Creatinine Ratio 21.5 (10-20); Creatinine Clr Calc Pharmacy 55.8 ml/min; Est GFR (African American) 75.5 ml/min; Est GFR (Non-African American) 65.2 ml/min; Potassium 4.2 mmol/L (3.5-5.1)
[2021-02-07 06:56] LABS: Albumin Globulin Ratio 0.9 (0.9-2); Bilirubin,Total 0.4 mg/dl (0.2-1); Globulin 3.3 gm/dl (2.5-4.0); Total Protein 6.2 gm/dl (6.4-8.2)
--- NOTE | 2021-02-07 07:59 | Hospitalist Progress Note ---
Date of Service February 07, 2021 Assessment & Plan (1) Atrial fibrillation with rapid ventricular response: Pt denies any recent missed doses of rate-control medications. - Admit to PCU for monitoring - Metoprolol tartrate 50 mg po BID with additional PRN IV ordered - now metopro lol 25 Q6H - Check ECHO - Elevated troponin - secondary to demand ischemia in the setting of acute Lyme disease and A. fib with RVR. No regional wall motion abnormalities on echo - EKG reviewed by cardiology - nondiagnostic given left ankle branch block - HOLD Eliquis for now, started heparin drip, no bolus. Per pharmacy, given patient's elevated LFTs, not recommend Eliquis at this time as it is metabolized by liver. - Potassium supplement - follow labs - IV hydration (2) Lyme disease: Rash suspicious for erythema migrans, especially with known history of multiple tick bites - IgM and IgG positive WB pending - Started treatment empirically on admission with doxycycline 100 mg BID x 14 days - peripheral smear for anaplasmosis - negative - AST elevated on labs today - recheck in AM Febrile overnight, ceftriaxone added by sales commissions analyst. Blood cultures obtained and pending (3) Weakness: Multi-factorial - likely secondary to lyme dis. - IVF hydration - PT/OT consult (4) Hypertension: Will hold Lisinopril for now due to borderline BP in the ED - Continuing beta-tye as per #1 (5) Dyslipidemia: - Check lipid panel in AM - Continue statin Code status: Full Code DVT prophylaxis: heparin gtt Admission and Anticipated Discharge Date Admission Date: February 06, 2021 Subjective Patient seen in follow-up of elevated troponin, fever, Lyme disease Currently sitting up in bed, diaphoretic, still feels very weak However says she feels also improved as yesterday she was not able to get up from bed, currently working with physical therapy Febrile overnight and this morning, blood cultures obtained as well No chest pain, abdominal pain, no difficulty breathing, reports okay appetite Review of Systems Review of Systems: All systems reviewed & are unremarkable except as noted in HPI & below Constitutional: + fever, + chills, + fatigue and + weakness Respiratory: no cough and no dyspnea Cardiovascular: no chest pain and no palpitations Gastrointestinal: no abdominal pain, no nausea and no vomiting Integumentary: + rash Physical Exam Physical Exam: Constitutional: WD/WN, vitals as above no acute distress Eyes: + anicteric sclerae; no conjunctival abnormality Neck: trachea midline Respiratory: no respiratory distress and no labored breathing, lungs clear to auscultation bilaterally; no rales, no rhonchi and no wheezes Cardiovascular: Rate/Rhythm:+ irregularly irregular Extremities: no edema Gastrointestinal (Abdomen): Inspection/Auscultation: normal bowel sounds; abdomen not distended Percussion/Palpation: abdomen soft; abdomen nontender Musculoskeletal: Head/Neck/Chest: normocephalic, head atraumatic and neck supple Skin: ~6 cm diameter erythematous circular rash on medial right thigh with central darkening of erythema - no open area or active drainage Two circular areas of ecchymosis bilateral anterior shoulder Neurologic: no focal motor deficits Speech / Cognition: normal speech Motor/Sensory: no tremor Psychiatric: A+Ox3, euthymic affect Results & Data Results & Data ([facility]) Vital Signs (Past 12 Hours) Vital Signs Temp Pulse Pulse Resp BP BP Pulse Ox 02/07/21 07:55 38.7 C H 02/07/21 03:46 38.6 C H 87 20 106/52 L 95 02/07/21 00:00 75 02/06/21 23:18 36.7 C 76 20 92/54 L 96 Laboratory Results 02/07/21 02/07/21 02/07/21 Range/Units 05:59 05:59 05:59 WBC 4.76 L (4.8-10.8) K/uL RBC 4.24 (4.2-5.4) M/uL Hgb 12.7 (12.0-16.0) g/dL Hct 38.6 (37-47) % MCV 91.0 (80-100) fL MCH 30.0 (25-34) pg MCHC 32.9 (32-36) g/dL RDW Std Deviation 48.8 H (36.4-46.3) fL RDW Coeff of Dl 14.5 (11.5-14.5) % Plt Count 151 (130-400) K/uL MPV 9.3 (7.4-10.4) fL Immature Gran % (Auto) 0.2 % Neut % (Auto) 81.1 % Lymph % (Auto) 14.5 % [place] % (Auto) 4.0 % Eos % (Auto) 0.0 % Baso % (Auto) 0.2 % Neut # (Auto) 3.86 (1.4-6.5) K/uL Lymph # (Auto) 0.69 L (1.2-3.4) K/uL [place] # (Auto) 0.19 (0.11-0.59) K/uL Eos # (Auto) 0.00 (0-0.5) K/uL Baso # (Auto) 0.01 (0-0.2) K/uL Immature Gran # (Auto) 0.01 (0.00-0.02) K/uL RBC Morphology Peripher Smr Path Cons Cancelled APTT 75.2 H* (21.0-31.0) Seconds PTT Ratio 2.9 Sodium 137 (136-145) mmol/L Potassium 4.2 D (3.5-5.1) mmol/L Chloride 110 H (98-107) mmol/L Carbon Dioxide 22 (21-32) mmol/L Anion Gap 5.0 (3-11) BUN 19 H (7-18) mg/dl Creatinine 0.88 D (0.6-1.2) mg/dl Est Cr Clr Drug Dosing 55.8 ml/min Est GFR ( Amer) 75.5 ml/min Est GFR (Non-Af Amer) 65.2 ml/min BUN/Creatinine Ratio 21.5 H (10-20) Glucose 95 (70-99) mg/dl Lactate (0.4-2.0) mmol/L Calcium 8.0 L (8.5-10.1) mg/dl Magnesium 2.0 (1.8-2.4) mg/dl Total Bilirubin 0.4 (0.2-1) mg/dl AST 261 H (15-37) U/L ALT 91 H (12-78) U/L Alkaline Phosphatase 57 (45-117) U/L Troponin I (0-0.045) ng/ml Total Protein 6.2 L D (6.4-8.2) gm/dl Albumin 2.9 L (3.4-5.0) gm/dl Globulin 3.3 (2.5-4.0) gm/dl Albumin/Globulin Ratio 0.9 (0.9-2) Triglycerides 81 (0-150) mg/dl Cholesterol 126 (0-200) mg/dl LDL Cholesterol, Calc 73 mg/dl VLDL Cholesterol, Calc 16 mg/dl HDL Cholesterol 37 mg/dl Cholesterol/HDL Ratio 3 TSH (0.300-4.500) uIu/ml Free T4 (0.8-1.6) ng/dl Anaplasma Smear See Comment A. phagocytophilum DNA Babesia microti IgG Ab Babesia microti IgM Ab Babesia Interpretation Lyme Disease IgG Ab (Negative) Lyme IgG (Western Blot) Lyme IgG 18 kDa Band Lyme IgG 23 kDa Band Lyme IgG 28 kDa Band Lyme IgG 30 kDa Band Lyme IgG 39 kDa Band Lyme IgG 41 kDa Band Lyme IgG 45 kDa Band Lyme IgG 58 kDa Band Lyme IgG 66 kDa Band Lyme IgG 93 kDa Band Lyme IgM Ab (WB) Lyme Disease IgM Ab (Negative) Lyme IgM 23 kDa Band Lyme IgM 39 kDa Band Lyme IgM 41 kDa Band COVID-19 Eval Order SARS-CoV-2 (PCR) (Negative) 02/06/21 02/06/21 02/06/21 Range/Units 22:57 20:40 17:13 WBC (4.8-10.8) K/uL RBC (4.2-5.4) M/uL Hgb (12.0-16.0) g/dL Hct (37-47) % MCV (80-100) fL MCH (25-34) pg MCHC (32-36) g/dL RDW Std Deviation (36.4-46.3) fL RDW Coeff of Dl (11.5-14.5) % Plt Count (130-400) K/uL MPV (7.4-10.4) fL Immature Gran % (Auto) % Neut % (Auto) % Lymph % (Auto) % [place] % (Auto) % Eos % (Auto) % Baso % (Auto) % Neut # (Auto) (1.4-6.5) K/uL Lymph # (Auto) (1.2-3.4) K/uL [place] # (Auto) (0.11-0.59) K/uL Eos # (Auto) (0-0.5) K/uL Baso # (Auto) (0-0.2) K/uL Immature Gran # (Auto) (0.00-0.02) K/uL RBC Morphology Peripher Smr Path Cons APTT 57.2 H* (21.0-31.0) Seconds PTT Ratio 2.2 Sodium (136-145) mmol/L Potassium (3.5-5.1) mmol/L Chloride (98-107) mmol/L Carbon Dioxide (21-32) mmol/L Anion Gap (3-11) BUN (7-18) mg/dl Creatinine (0.6-1.2) mg/dl Est Cr Clr Drug Dosing ml/min Est GFR ( Amer) ml/min Est GFR (Non-Af Amer) ml/min BUN/Creatinine Ratio (10-20) Glucose (70-99) mg/dl Lactate (0.4-2.0) mmol/L Calcium (8.5-10.1) mg/dl Magnesium (1.8-2.4) mg/dl Total Bilirubin (0.2-1) mg/dl AST (15-37) U/L ALT (12-78) U/L Alkaline Phosphatase (45-117) U/L Troponin I 0.211 H* 0.193 H* (0-0.045) ng/ml Total Protein (6.4-8.2) gm/dl Albumin (3.4-5.0) gm/dl Globulin (2.5-4.0) gm/dl Albumin/Globulin Ratio (0.9-2) Triglycerides (0-150) mg/dl Cholesterol (0-200) mg/dl LDL Cholesterol, Calc mg/dl VLDL Cholesterol, Calc mg/dl HDL Cholesterol mg/dl Cholesterol/HDL Ratio TSH (0.300-4.500) uIu/ml Free T4 (0.8-1.6) ng/dl Anaplasma Smear A. phagocytophilum DNA Babesia microti IgG Ab Babesia microti IgM Ab Babesia Interpretation Lyme Disease IgG Ab (Negative) Lyme IgG (Western Blot) Lyme IgG 18 kDa Band Lyme IgG 23 kDa Band Lyme IgG 28 kDa Band Lyme IgG 30 kDa Band Lyme IgG 39 kDa Band Lyme IgG 41 kDa Band Lyme IgG 45 kDa Band Lyme IgG 58 kDa Band Lyme IgG 66 kDa Band Lyme IgG 93 kDa Band Lyme IgM Ab (WB) Lyme Disease IgM Ab (Negative) Lyme IgM 23 kDa Band Lyme IgM 39 kDa Band Lyme IgM 41 kDa Band COVID-19 Eval Order SARS-CoV-2 (PCR) (Negative) 06/24/21 06/24/21 06/24/21 Range/Units 12:46 12:46 12:07 WBC (4.8-10.8) K/uL RBC (4.2-5.4) M/uL Hgb (12.0-16.0) g/dL Hct (37-47) % MCV (80-100) fL MCH (25-34) pg MCHC (32-36) g/dL RDW Std Deviation (36.4-46.3) fL RDW Coeff of Dl (11.5-14.5) % Plt Count (130-400) K/uL MPV (7.4-10.4) fL Immature Gran % (Auto) % Neut % (Auto) % Lymph % (Auto) % [place] % (Auto) % Eos % (Auto) % Baso % (Auto) % Neut # (Auto) (1.4-6.5) K/uL Lymph # (Auto) (1.2-3.4) K/uL [place] # (Auto) (0.11-0.59) K/uL Eos # (Auto) (0-0.5) K/uL Baso # (Auto) (0-0.2) K/uL Immature Gran # (Auto) (0.00-0.02) K/uL RBC Morphology Peripher Smr Path Cons APTT (21.0-31.0) Seconds PTT Ratio Sodium (136-145) mmol/L Potassium (3.5-5.1) mmol/L Chloride (98-107) mmol/L Carbon Dioxide (21-32) mmol/L Anion Gap (3-11) BUN (7-18) mg/dl Creatinine (0.6-1.2) mg/dl Est Cr Clr Drug Dosing ml/min Est GFR ( Amer) ml/min Est GFR (Non-Af Amer) ml/min BUN/Creatinine Ratio (10-20) Glucose (70-99) mg/dl Lactate 1.7 (0.4-2.0) mmol/L Calcium (8.5-10.1) mg/dl Magnesium (1.8-2.4) mg/dl Total Bilirubin (0.2-1) mg/dl AST (15-37) U/L ALT (12-78) U/L Alkaline Phosphatase (45-117) U/L Troponin I (0-0.045) ng/ml Total Protein (6.4-8.2) gm/dl Albumin (3.4-5.0) gm/dl Globulin (2.5-4.0) gm/dl Albumin/Globulin Ratio (0.9-2) Triglycerides (0-150) mg/dl Cholesterol (0-200) mg/dl LDL Cholesterol, Calc mg/dl VLDL Cholesterol, Calc mg/dl HDL Cholesterol mg/dl Cholesterol/HDL Ratio TSH (0.300-4.500) uIu/ml Free T4 (0.8-1.6) ng/dl Anaplasma Smear A. phagocytophilum DNA Babesia microti IgG Ab Babesia microti IgM Ab Babesia Interpretation Lyme Disease IgG Ab (Negative) Lyme IgG (Western Blot) Lyme IgG 18 kDa Band Lyme IgG 23 kDa Band Lyme IgG 28 kDa Band Lyme IgG 30 kDa Band Lyme IgG 39 kDa Band Lyme IgG 41 kDa Band Lyme IgG 45 kDa Band Lyme IgG 58 kDa Band Lyme IgG 66 kDa Band Lyme IgG 93 kDa Band Lyme IgM Ab (WB) Lyme Disease IgM Ab (Negative) Lyme IgM 23 kDa Band Lyme IgM 39 kDa Band Lyme IgM 41 kDa Band COVID-19 Eval Order Covid19 at [facility] SARS-CoV-2 (PCR) NEGATIVE (Negative) 02/06/21 02/06/21 02/06/21 Range/Units 11:17 11:17 11:17 WBC (4.8-10.8) K/uL RBC (4.2-5.4) M/uL Hgb (12.0-16.0) g/dL Hct (37-47) % MCV (80-100) fL MCH (25-34) pg MCHC (32-36) g/dL RDW Std Deviation (36.4-46.3) fL RDW Coeff of Dl (11.5-14.5) % Plt Count (130-400) K/uL MPV (7.4-10.4) fL Immature Gran % (Auto) % Neut % (Auto) % Lymph % (Auto) % [place] % (Auto) % Eos % (Auto) % Baso % (Auto) % Neut # (Auto) (1.4-6.5) K/uL Lymph # (Auto) (1.2-3.4) K/uL [place] # (Auto) (0.11-0.59) K/uL Eos # (Auto) (0-0.5) K/uL Baso # (Auto) (0-0.2) K/uL Immature Gran # (Auto) (0.00-0.02) K/uL RBC Morphology Peripher Smr Path Cons APTT (21.0-31.0) Seconds PTT Ratio Sodium (136-145) mmol/L Potassium (3.5-5.1) mmol/L Chloride (98-107) mmol/L Carbon Dioxide (21-32) mmol/L Anion Gap (3-11) BUN (7-18) mg/dl Creatinine (0.6-1.2) mg/dl Est Cr Clr Drug Dosing ml/min Est GFR ( Amer) ml/min Est GFR (Non-Af Amer) ml/min BUN/Creatinine Ratio (10-20) Glucose (70-99) mg/dl Lactate (0.4-2.0) mmol/L Calcium (8.5-10.1) mg/dl Magnesium (1.8-2.4) mg/dl Total Bilirubin (0.2-1) mg/dl AST (15-37) U/L ALT (12-78) U/L Alkaline Phosphatase (45-117) U/L Troponin I (0-0.045) ng/ml Total Protein (6.4-8.2) gm/dl Albumin (3.4-5.0) gm/dl Globulin (2.5-4.0) gm/dl Albumin/Globulin Ratio (0.9-2) Triglycerides (0-150) mg/dl Cholesterol (0-200) mg/dl LDL Cholesterol, Calc mg/dl VLDL Cholesterol, Calc mg/dl HDL Cholesterol mg/dl Cholesterol/HDL Ratio TSH (0.300-4.500) uIu/ml Free T4 (0.8-1.6) ng/dl Anaplasma Smear A. phagocytophilum DNA Pending Babesia microti IgG Ab Pending Babesia microti IgM Ab Pending Babesia Interpretation Pending Lyme Disease IgG Ab Positive A (Negative) Lyme IgG (Western Blot) Pending Lyme IgG 18 kDa Band Pending Lyme IgG 23 kDa Band Pending Lyme IgG 28 kDa Band Pending Lyme IgG 30 kDa Band Pending Lyme IgG 39 kDa Band Pending Lyme IgG 41 kDa Band Pending Lyme IgG 45 kDa Band Pending Lyme IgG 58 kDa Band Pending Lyme IgG 66 kDa Band Pending Lyme IgG 93 kDa Band Pending Lyme IgM Ab (WB) Pending Lyme Disease IgM Ab Positive A (Negative) Lyme IgM 23 kDa Band Pending Lyme IgM 39 kDa Band Pending Lyme IgM 41 kDa Band Pending COVID-19 Eval Order SARS-CoV-2 (PCR) (Negative) 02/06/21 02/06/21 02/06/21 Range/Units 11:17 11:17 11:17 WBC 7.80 (4.8-10.8) K/uL RBC 4.77 (4.2-5.4) M/uL Hgb 14.4 (12.0-16.0) g/dL Hct 42.9 (37-47) % MCV 89.9 (80-100) fL MCH 30.2 (25-34) pg MCHC 33.6 (32-36) g/dL RDW Std Deviation 46.8 H (36.4-46.3) fL RDW Coeff of Dl 14.0 (11.5-14.5) % Plt Count 218 (130-400) K/uL MPV 9.7 (7.4-10.4) fL Immature Gran % (Auto) 0.4 % Neut % (Auto) 90.5 % Lymph % (Auto) 5.4 % [place] % (Auto) 3.6 % Eos % (Auto) 0.0 % Baso % (Auto) 0.1 % Neut # (Auto) 7.06 H (1.4-6.5) K/uL Lymph # (Auto) 0.42 L (1.2-3.4) K/uL [place] # (Auto) 0.28 (0.11-0.59) K/uL Eos # (Auto) 0.00 (0-0.5) K/uL Baso # (Auto) 0.01 (0-0.2) K/uL Immature Gran # (Auto) 0.03 H (0.00-0.02) K/uL RBC Morphology Unremarkable Peripher Smr Path Cons APTT (21.0-31.0) Seconds PTT Ratio Sodium 137 (136-145) mmol/L Potassium 3.6 (3.5-5.1) mmol/L Chloride 105 (98-107) mmol/L Carbon Dioxide 23 (21-32) mmol/L Anion Gap 9.0 (3-11) BUN 24 H (7-18) mg/dl Creatinine 1.20 (0.6-1.2) mg/dl Est Cr Clr Drug Dosing 40.5 ml/min Est GFR ( Amer) 51.9 ml/min Est GFR (Non-Af Amer) 44.8 ml/min BUN/Creatinine Ratio 19.8 (10-20) Glucose 110 H (70-99) mg/dl Lactate (0.4-2.0) mmol/L Calcium 9.1 (8.5-10.1) mg/dl Magnesium 2.3 (1.8-2.4) mg/dl Total Bilirubin 0.5 (0.2-1) mg/dl AST 193 H (15-37) U/L ALT 65 (12-78) U/L Alkaline Phosphatase 73 (45-117) U/L Troponin I 0.159 H* (0-0.045) ng/ml Total Protein 7.8 (6.4-8.2) gm/dl Albumin 3.7 (3.4-5.0) gm/dl Globulin 4.1 H (2.5-4.0) gm/dl Albumin/Globulin Ratio 0.9 (0.9-2) Triglycerides (0-150) mg/dl Cholesterol (0-200) mg/dl LDL Cholesterol, Calc mg/dl VLDL Cholesterol, Calc mg/dl HDL Cholesterol mg/dl Cholesterol/HDL Ratio TSH 0.209 L (0.300-4.500) uIu/ml Free T4 1.24 (0.8-1.6) ng/dl Anaplasma Smear See Comment Cancelled A. phagocytophilum DNA Babesia microti IgG Ab Babesia microti IgM Ab Babesia Interpretation Lyme Disease IgG Ab (Negative) Lyme IgG (Western Blot) Lyme IgG 18 kDa Band Lyme IgG 23 kDa Band Lyme IgG 28 kDa Band Lyme IgG 30 kDa Band Lyme IgG 39 kDa Band Lyme IgG 41 kDa Band Lyme IgG 45 kDa Band Lyme IgG 58 kDa Band Lyme IgG 66 kDa Band Lyme IgG 93 kDa Band Lyme IgM Ab (WB) Lyme Disease IgM Ab (Negative) Lyme IgM 23 kDa Band Lyme IgM 39 kDa Band Lyme IgM 41 kDa Band COVID-19 Eval Order SARS-CoV-2 (PCR) (Negative) Medications Administered Current Inpatient Medications Acetaminophen (Acetaminophen 325 Mg Tab) 650 mg PO Q4H PRN PRN Reason: Pain or Fever Stop: 03/08/21 15:38 Last Admin: 02/06/21 19:52 Dose: 650 mg Documented by: Aspirin (Aspirin 81 Mg Ectab) 81 mg PO QAM [facility] Stop: 03/09/21 08:59 Atorvastatin Calcium (Atorvastatin 10 Mg Tab) 10 mg PO PM ASYA Stop: 03/08/21 20:59 Last Admin: 02/06/21 20:22 Dose: 10 mg Documented by: Heparin Sodium/Dextrose (Heparin Sodium/Dextrose) 25,000 units in 500 mls @ 22 mls/hr IV .[id number] [facility]; Protocol Stop: 03/08/21 13:53 Last Titration: 02/07/21 07:07 Dose: 21 units/hr, 0.4 mls/hr Documented by: Potassium Chloride/Sodium Chloride (Normal Saline W/20 Meq Kcl) 20 meq in 1,000 mls @ 100 mls/hr IV .Q10H [facility] Stop: 02/07/21 11:59 Last Admin: 02/07/21 01:50 Dose: 100 mls/hr Documented by: Doxycycline Hyclate 100 mg/ (Dextrose) 110 mls @ 50 mls/hr IV Q12H [facility] Stop: 02/17/21 00:00 Last Infusion: 02/07/21 01:52 Dose: 0 mls/hr Documented by: Ceftriaxone Sodium 2,000 mg/ (Dextrose) 70 mls @ 100 mls/hr IV DAILY [facility]; Protocol Stop: 02/16/21 19:59 Last Admin: 02/06/21 20:18 Dose: 100 mls/hr Documented by: Metoprolol Tartrate (Metoprolol Tartrate 1 Mg/Ml Vial) 2.5 mg IV Q6 PRN PRN Reason: Tachycardia Stop: 03/08/21 13:39 Last Admin: 02/06/21 18:04 Dose: 2.5 mg Documented by: Metoprolol Tartrate (Metoprolol Tartrate 25 Mg Tab) 25 mg PO Q6 [facility] Stop: 03/08/21 18:14 Last Admin: 02/07/21 05:32 Dose: 25 mg Documented by:
[2021-02-07] MEDS: ASPIRIN 81 MG ECTAB PO SCH (08:01)
[2021-02-07] MEDS: cefTRIAXone SODIUM 2,000 MG in DEXTROSE 5% 50 ML IV SCH (08:01)
[2021-02-07] MEDS: ACETAMINOPHEN 325 MG TAB PO PRN (08:02)
[2021-02-07] MEDS ORDERED: APIXABAN 5 MG TABLET PO SCH (09:00)
[2021-02-07] MEDS: SODIUM CHLORIDE 0.9% 1000ML 1,000 ML IV SCH ×2 (12:34→23:56)
[2021-02-07] MEDS: DOXYCYCLINE HYCLATE 100 MG in DEXTROSE 5% 100 ML IV SCH ×2 (12:35→23:56)
--- NOTE | 2021-02-07 13:12 | Cardiology Progress Note ---
Date of Service February 07, 2021 Assessment & Plan (1) Paroxysmal atrial fibrillation with RVR: Rate control strategy recommended for the time being, however, cardioversion may be considered prior to discharge pending clinical course. Continue metoprolol tartrate to 25 mg every 6 hours. Mildly elevated troponin noted secondary to demand ischemia in the setting of cute Lyme disease and atrial fibrillation with rapid ventricular response. No regional wall motion abnormalities per echocardiogram. ECG is nondiagnostic due to left bundle branch block. Continue oral anticoagulation. Patient transition to IV heparin due to concerns regarding elevated AST/ALT. (2) Lyme disease: Western blot pending. Antibiotics per internal medicine. (3) Mitral regurgitation: Moderate in the setting of atrial fibrillation with rapid ventricular response. No signs/symptoms of decompensated heart failure or pulmonary hypertension. Continue treatment of atrial fibrillation as noted above. (4) Aortic regurgitation: Mild progression compared to most recent echocardiogram. No specific treatment is indicated at this time. Routine, repeat imaging in 1 year. Admission and Anticipated Discharge Date Admission Date: February 06, 2021 Subjective Patient seen examined the bedside. Continues to experience fevers with diaphoresis. Denies chest pain. Telemetry reveals atrial fibrillation with heart rate ranging from 80-110 bpm. Tolerating metoprolol 25 mg every 6 hours. Denies lightheadedness, dizziness, syncope, or near syncope. No focal weakness, slurred speech, or gait instability. Offers no concerns/complaints this time. Review of Systems Review of Systems: All systems reviewed & are unremarkable except as noted in Subjective Physical Exam Constitutional: well developed and well nourished; no acute distress Respiratory: normal respiratory effort; no respiratory distress and no labored breathing Auscultation: lungs clear to auscultation bilaterally; breath sounds present, no diminished lung sounds, no crackles, no rales, no rhonchi and no wheezes Cardiovascular: Rate/Rhythm: + tachycardic and + irregularly irregular Heart Sounds: + murmur (2/6 midsystolic murmur heard best at the apex) Vessels: no JVD Extremities: no edema Gastrointestinal (Abdomen): Inspection/Auscultation: normal bowel sounds Percussion/Palpation: abdomen soft; abdomen nontender, no guarding and abdomen not rigid Neurologic: CN's II-XI intact bilaterally and moves all extremities; no focal motor deficits Motor/Sensory: no tremor Psychiatric: A+Ox3, euthymic affect Results & Data ([facility]) Vital Signs (Past 12 Hours) Vital Signs Temp Pulse Resp BP Pulse Ox 02/07/21 09:32 37.5 C 02/07/21 07:55 38.7 C H 02/07/21 03:46 38.6 C H 87 20 106/52 L 95
[2021-02-07 13:42] LABS: Partial Thromboplastin Ratio 2.5; Partial Thromboplastin Time 65.8 Seconds (21.0-31.0)
--- NOTE | 2021-02-07 14:33 | Electrocardiogram Report ---
Test Reason : Blood Pressure : / mmHG Vent. Rate : 085 BPM Atrial Rate : 375 BPM P-R Int : 000 ms QRS Dur : 148 ms QT Int : 426 ms P-R-T Axes : 000 -08 130 degrees QTc Int : 506 ms Atrial fibrillation Left bundle branch block Abnormal ECG When compared with ECG of 06-FEB-2021 11:22, No significant change was found Confirmed by Natalio Reyes ([id number]) on 02/07/2021 2:33:29 PM Referred By: REFERRED SELF Confirmed By:Natalio Reyes
[2021-02-07] MEDS: HEPARIN SODIUM/DEXTROSE 25,000 UNITS/500 ML BAG IV SCH (17:15)
[2021-02-07] MEDS: ATORVASTATIN 10 MG TAB PO SCH (21:10)
[2021-02-08 03:51] LABS: Appearance Urine Clear (Clear); Bacteria Urine Automated Negative (Negative); Bilirubin Urine Negative (Negative); Blood Urine Trace (Negative); Color Urine Yellow; Epithelial Cell Urine Auto 20-30 /lpf (0-5); Glucose Urine UA Negative (Negative); Ketones Urine Negative (Negative); Leukocyte Esterase Urine Negative (Negative); Nitrite Urine Negative (Negative); Protein Urine Negative (Negative); Specific Gravity Urine 1.011 (1.000-1.030); Urobilinogen Urine Negative (Negative)
[2021-02-08 06:11] LABS: Hematocrit (blood only) 36.7 % (37-47); Hemoglobin 12.2 g/dL (12.0-16.0); Mean Corpuscular Hgb Conc 33.2 g/dL (32-36); Mean Corpuscular Volume 90.2 fL (80-100); Platelet Count 135 K/uL (130-400); RDW Coefficient of Variation 14.4 % (11.5-14.5); RDW Standard Deviation 47.4 fL (36.4-46.3); Red Blood Count 4.07 M/uL (4.2-5.4); White Blood Count 5.98 K/uL (4.8-10.8)
[2021-02-08] MEDS: METOPROLOL TARTRATE 25 MG TAB PO SCH (06:12)
[2021-02-08 06:39] LABS: Albumin Level 2.8 gm/dl (3.4-5.0); BUN Creatinine Ratio 19.8 (10-20); Calcium 8.1 mg/dl (8.5-10.1); Creatinine Clr Calc Pharmacy 70.4 ml/min; Est GFR (African American) 99.6 ml/min; Potassium 3.7 mmol/L (3.5-5.1)
[2021-02-08 06:42] LABS: Albumin Globulin Ratio 0.8 (0.9-2); Bilirubin,Total 0.4 mg/dl (0.2-1); Globulin 3.4 gm/dl (2.5-4.0); Phosphorus 1.9 mg/dl (2.5-4.9); Total Protein 6.2 gm/dl (6.4-8.2)
--- NOTE | 2021-02-08 07:50 | Hospitalist Progress Note ---
Date of Service February 08, 2021 Assessment & Plan (1) Atrial fibrillation with rapid ventricular response: Pt denies any recent missed doses of rate-control medications. - Admit to PCU for monitoring - Metoprolol tartrate 50 mg po BID with additional PRN IV ordered - now metopro lol succinate 50 BID - Check ECHO -EF 50 to 55%. Moderate aortic regurg. Moderate mitral regurg. Mild tricuspid regurg. Doppler findings do not suggest pulmonary hypertension. - Elevated troponin - secondary to demand ischemia in the setting of acute Lyme disease and A. fib with RVR. No regional wall motion abnormalities on echo - EKG reviewed by cardiology - nondiagnostic given left bundle branch block - HOLD Eliquis for now, started heparin drip, no bolus. Per pharmacy, given patient's elevated LFTs, not recommend Eliquis at this time as it is metabolized by liver. - Potassium supplement - follow labs - IV hydration (2) Lyme disease: Rash suspicious for erythema migrans, especially with known history of multiple tick bites - IgM and IgG positive WB pending - Started treatment empirically on admission with doxycycline 100 mg BID x 14 days - peripheral smear for anaplasmosis - negative - AST elevated on labs today - trended down, cont. to monitor Febrile overnight (02/06-02/07), ceftriaxone added by wool brusher. Blood cultures obtained and pending UA negative (3) Weakness: Multi-factorial - likely secondary to lyme dis. - IVF hydration - PT/OT consult (4) Hypertension: Will hold Lisinopril for now due to borderline BP in the ED - Continuing beta-tye as per #1 (5) Dyslipidemia: - Fasting lipid panel - TC 125, LDL 73, TG 81 - Continue statin Code status: Full Code DVT prophylaxis: heparin gtt Admission and Anticipated Discharge Date Admission Date: February 06, 2021 Subjective Patient seen in follow-up of elevated troponin, Afib, fever, Lyme disease Currently sitting up in chair,in NAD No chest pain, abdominal pain, no difficulty breathing, reports okay appetite No longer febrile Continues to feel very week Afib w/ RVR, HR cont. to be mildly elevated Review of Systems Review of Systems: All systems reviewed & are unremarkable except as noted in HPI & below Constitutional: + fatigue Respiratory: no dyspnea Cardiovascular: no chest pain and no palpitations Integumentary: + rash Neurologic: + generalized weakness Physical Exam Physical Exam: Constitutional: WD/WN, vitals as above no acute distress Eyes: + anicteric sclerae; no conjunctival abnormality Neck: trachea midline Respiratory: no respiratory distress and no labored breathing, lungs clear to auscultation bilaterally; no rales, no rhonchi and no wheezes Cardiovascular: Rate/Rhythm:+ irregularly irregular HR low 100s Extremities: no edema Gastrointestinal (Abdomen): Inspection/Auscultation: normal bowel sounds; abdomen not distended Percussion/Palpation: abdomen soft; abdomen nontender Musculoskeletal: Head/Neck/Chest: normocephalic, head atraumatic and neck supple Skin: ~6 cm diameter erythematous circular rash on medial right thigh with central darkening of erythema - no open area or active drainage Two circular areas of ecchymosis bilateral anterior shoulder Neurologic: no focal motor deficits Speech / Cognition: normal speech Motor/Sensory: no tremor Psychiatric: A+Ox3, euthymic affect Results & Data Results & Data ([facility]) Vital Signs (Past 12 Hours) Vital Signs Temp Pulse Pulse Resp BP Pulse Ox 02/08/21 07:05 37.4 C 105 H 19 111/86 96 02/08/21 04:28 36.9 C 94 H 18 106/54 L 98 02/08/21 01:00 94 H 02/07/21 22:51 37.5 C 70 16 134/62 96 Laboratory Results 02/08/21 02/08/21 02/08/21 Range/Units 07:25 05:53 05:53 WBC 5.98 (4.8-10.8) K/uL RBC 4.07 L (4.2-5.4) M/uL Hgb 12.2 (12.0-16.0) g/dL Hct 36.7 L (37-47) % MCV 90.2 (80-100) fL MCH 30.0 (25-34) pg MCHC 33.2 (32-36) g/dL RDW Std Deviation 47.4 H (36.4-46.3) fL RDW Coeff of Dl 14.4 (11.5-14.5) % Plt Count 135 (130-400) K/uL MPV 10.0 (7.4-10.4) fL APTT Pending (21.0-31.0) Seconds PTT Ratio Pending Sodium 138 (136-145) mmol/L Potassium 3.7 (3.5-5.1) mmol/L Chloride 110 H (98-107) mmol/L Carbon Dioxide 24 (21-32) mmol/L Anion Gap 4.0 (3-11) BUN 14 (7-18) mg/dl Creatinine 0.70 (0.6-1.2) mg/dl Est Cr Clr Drug Dosing 70.4 ml/min Est GFR ( Amer) 99.6 ml/min Est GFR (Non-Af Amer) 86.0 ml/min BUN/Creatinine Ratio 19.8 (10-20) Glucose 89 (70-99) mg/dl Calcium 8.1 L (8.5-10.1) mg/dl Phosphorus 1.9 L (2.5-4.9) mg/dl Magnesium 2.0 (1.8-2.4) mg/dl Total Bilirubin 0.4 (0.2-1) mg/dl AST 200 H (15-37) U/L ALT 90 H (12-78) U/L Alkaline Phosphatase 62 (45-117) U/L Total Protein 6.2 L (6.4-8.2) gm/dl Albumin 2.8 L (3.4-5.0) gm/dl Globulin 3.4 (2.5-4.0) gm/dl Albumin/Globulin Ratio 0.8 L (0.9-2) Urine Color Urine Appearance (Clear) Urine pH (4.5-7.5) Ur Specific [place] (1.000-1.030) Urine Protein (Negative) Urine Glucose (UA) (Negative) Urine Ketones (Negative) Urine Blood (Negative) Urine Nitrite (Negative) Urine Bilirubin (Negative) Urine Urobilinogen (Negative) Ur Leukocyte Esterase (Negative) Urine WBC (Auto) (0-5) /hpf Urine RBC (Auto) (0-4) /hpf U Hyaline Cast (Auto) (0-5) /lpf U Epithel Cells (Auto) (0-5) /lpf Urine Bacteria (Auto) (Negative) 02/08/21 02/07/21 Range/Units 02:40 12:58 WBC (4.8-10.8) K/uL RBC (4.2-5.4) M/uL Hgb (12.0-16.0) g/dL Hct (37-47) % MCV (80-100) fL MCH (25-34) pg MCHC (32-36) g/dL RDW Std Deviation (36.4-46.3) fL RDW Coeff of Dl (11.5-14.5) % Plt Count (130-400) K/uL MPV (7.4-10.4) fL APTT 65.8 H* (21.0-31.0) Seconds PTT Ratio 2.5 Sodium (136-145) mmol/L Potassium (3.5-5.1) mmol/L Chloride (98-107) mmol/L Carbon Dioxide (21-32) mmol/L Anion Gap (3-11) BUN (7-18) mg/dl Creatinine (0.6-1.2) mg/dl Est Cr Clr Drug Dosing ml/min Est GFR ( Amer) ml/min Est GFR (Non-Af Amer) ml/min BUN/Creatinine Ratio (10-20) Glucose (70-99) mg/dl Calcium (8.5-10.1) mg/dl Phosphorus (2.5-4.9) mg/dl Magnesium (1.8-2.4) mg/dl Total Bilirubin (0.2-1) mg/dl AST (15-37) U/L ALT (12-78) U/L Alkaline Phosphatase (45-117) U/L Total Protein (6.4-8.2) gm/dl Albumin (3.4-5.0) gm/dl Globulin (2.5-4.0) gm/dl Albumin/Globulin Ratio (0.9-2) Urine Color Yellow Urine Appearance Clear (Clear) Urine pH 5.0 (4.5-7.5) Ur Specific [place] 1.011 (1.000-1.030) Urine Protein Negative (Negative) Urine Glucose (UA) Negative (Negative) Urine Ketones Negative (Negative) Urine Blood Trace H (Negative) Urine Nitrite Negative (Negative) Urine Bilirubin Negative (Negative) Urine Urobilinogen Negative (Negative) Ur Leukocyte Esterase Negative (Negative) Urine WBC (Auto) 1-5 (0-5) /hpf Urine RBC (Auto) 5-10 H (0-4) /hpf U Hyaline Cast (Auto) 1-5 (0-5) /lpf U Epithel Cells (Auto) 20-30 H (0-5) /lpf Urine Bacteria (Auto) Negative (Negative) Medications Administered Current Inpatient Medications Acetaminophen (Acetaminophen 325 Mg Tab) 650 mg PO Q4H PRN PRN Reason: Pain or Fever Stop: 03/08/21 15:38 Last Admin: 02/07/21 08:02 Dose: 650 mg Documented by: Aspirin (Aspirin 81 Mg Ectab) 81 mg PO QAM [facility] Stop: 03/09/21 08:59 Last Admin: 02/07/21 08:01 Dose: 81 mg Documented by: Atorvastatin Calcium (Atorvastatin 10 Mg Tab) 10 mg PO PM [facility] Stop: 03/08/21 20:59 Last Admin: 02/07/21 21:10 Dose: 10 mg Documented by: Heparin Sodium/Dextrose (Heparin Sodium/Dextrose) 25,000 units in 500 mls @ 22 mls/hr IV .[id number] [facility]; Protocol Stop: 03/08/21 13:53 Last Admin: 02/07/21 17:15 Dose: 1,050 units/hr, 21 mls/hr Documented by: Doxycycline Hyclate 100 mg/ (Dextrose) 110 mls @ 50 mls/hr IV Q12H [facility] Stop: 02/17/21 00:00 Last Infusion: 02/08/21 04:16 Dose: Infused Documented by: Ceftriaxone Sodium 2,000 mg/ (Dextrose) 70 mls @ 100 mls/hr IV DAILY [facility]; Protocol Stop: 02/16/21 19:59 Last Infusion: 02/07/21 10:02 Dose: Infused Documented by: Sodium Chloride (Nss 1000ml) 1,000 mls @ 80 mls/hr IV .[id number] [facility] Stop: 03/09/21 10:29 Last Admin: 02/07/21 23:56 Dose: 80 mls/hr Documented by: Metoprolol Tartrate (Metoprolol Tartrate 1 Mg/Ml Vial) 2.5 mg IV Q6 PRN PRN Reason: Tachycardia Stop: 03/08/21 13:39 Last Admin: 02/06/21 18:04 Dose: 2.5 mg Documented by: Metoprolol Tartrate (Metoprolol Tartrate 25 Mg Tab) 25 mg PO Q6 [facility] Stop: 03/08/21 18:14 Last Admin: 02/08/21 06:12 Dose: 25 mg Documented by:
--- NOTE | 2021-02-08 07:53 | Cardiology Progress Note ---
Date of Service February 08, 2021 Assessment & Plan (1) Paroxysmal atrial fibrillation with RVR: Rate control strategy recommended for the time being, however, cardioversion may be considered prior to discharge pending clinical course We will change metoprolol tartrate to metoprolol succinate today at 50 mg twice per day Continue to treat underlying infectious process (2) Lyme disease: Western blot pending. Antibiotics per internal medicine. (3) Mitral regurgitation: Moderate in the setting of atrial fibrillation with rapid ventricular response. No signs/symptoms of decompensated heart failure or pulmonary hypertension. Continue treatment of atrial fibrillation as noted above. (4) Aortic regurgitation: Mild progression compared to most recent echocardiogram. No specific treatment is indicated at this time. Routine, repeat imaging in 1 year. Admission and Anticipated Discharge Date Admission Date: February 06, 2021 Subjective Patient seen examined, chart, medications, telemetry reviewed . Patient afebrile overnight. Only complaint of mild weakness. Heart rates 90-110 and remaining in atrial fibrillation. No chest pains or shortness of breath. No dizziness or lightheadedness Review of Systems Review of Systems: All systems reviewed & are unremarkable except as noted in HPI & below Physical Exam Constitutional: well developed and well nourished; no acute distress Respiratory: normal respiratory effort; no respiratory distress and no labored breathing Auscultation: lungs clear to auscultation bilaterally; breath sounds present, no diminished lung sounds, no crackles, no rales, no rhonchi and no wheezes Cardiovascular: Rate/Rhythm: + tachycardic and + irregularly irregular Heart Sounds: + murmur (2/6 midsystolic murmur heard best at the apex) Vessels: no JVD Extremities: no edema Gastrointestinal (Abdomen): Inspection/Auscultation: normal bowel sounds Percussion/Palpation: abdomen soft; abdomen nontender, no guarding and abdomen not rigid Neurologic: CN's II-XI intact bilaterally and moves all extremities; no focal motor deficits Motor/Sensory: no tremor Psychiatric: A+Ox3, euthymic affect Results & Data ([facility]) Vital Signs (Past 12 Hours) Vital Signs Temp Pulse Pulse Resp BP Pulse Ox 02/08/21 07:05 37.4 C 105 H 19 111/86 96 02/08/21 04:28 36.9 C 94 H 18 106/54 L 98 02/08/21 01:00 94 H 02/07/21 22:51 37.5 C 70 16 134/62 96 Laboratory Results Laboratory Results - last 24 hr 02/07/21 02/08/21 02/08/21 12:58 02:40 05:53 WBC 5.98 RBC 4.07 L Hgb 12.2 Hct 36.7 L MCV 90.2 MCH 30.0 MCHC 33.2 RDW Std Deviation 47.4 H RDW Coeff of Dl 14.4 Plt Count 135 MPV 10.0 APTT 65.8 H* PTT Ratio 2.5 Sodium Potassium Chloride Carbon Dioxide Anion Gap BUN Creatinine Est Cr Clr Drug Dosing Est GFR ( Amer) Est GFR (Non-Af Amer) BUN/Creatinine Ratio Glucose Calcium Phosphorus Magnesium Total Bilirubin AST ALT Alkaline Phosphatase Total Protein Albumin Globulin Albumin/Globulin Ratio Urine Color Yellow Urine Appearance Clear Urine pH 5.0 Ur Specific [place] 1.011 Urine Protein Negative Urine Glucose (UA) Negative Urine Ketones Negative Urine Blood Trace H Urine Nitrite Negative Urine Bilirubin Negative Urine Urobilinogen Negative Ur Leukocyte Esterase Negative Urine WBC (Auto) 1-5 Urine RBC (Auto) 5-10 H U Hyaline Cast (Auto) 1-5 U Epithel Cells (Auto) 20-30 H Urine Bacteria (Auto) Negative 02/08/21 02/08/21 05:53 07:25 WBC RBC Hgb Hct MCV MCH MCHC RDW Std Deviation RDW Coeff of Dl Plt Count MPV APTT Pending PTT Ratio Pending Sodium 138 Potassium 3.7 Chloride 110 H Carbon Dioxide 24 Anion Gap 4.0 BUN 14 Creatinine 0.70 Est Cr Clr Drug Dosing 70.4 Est GFR ( Amer) 99.6 Est GFR (Non-Af Amer) 86.0 BUN/Creatinine Ratio 19.8 Glucose 89 Calcium 8.1 L Phosphorus 1.9 L Magnesium 2.0 Total Bilirubin 0.4 AST 200 H ALT 90 H Alkaline Phosphatase 62 Total Protein 6.2 L Albumin 2.8 L Globulin 3.4 Albumin/Globulin Ratio 0.8 L Urine Color Urine Appearance Urine pH Ur Specific [place] Urine Protein Urine Glucose (UA) Urine Ketones Urine Blood Urine Nitrite Urine Bilirubin Urine Urobilinogen Ur Leukocyte Esterase Urine WBC (Auto) Urine RBC (Auto) U Hyaline Cast (Auto) U Epithel Cells (Auto) Urine Bacteria (Auto)
[2021-02-08] MEDS: ASPIRIN 81 MG ECTAB PO SCH (07:55)
[2021-02-08] MEDS: cefTRIAXone SODIUM 2,000 MG in DEXTROSE 5% 50 ML IV SCH (07:57)
[2021-02-08 08:03] LABS: Partial Thromboplastin Time 52.7 Seconds (21.0-31.0)
[2021-02-08] MEDS: METOPROLOL SUCC 50MG EXT REL TAB PO SCH ×2 (09:01→20:24)
[2021-02-08] MEDS ORDERED: POTASSIUM PHOS 3 MMOL/1 ML INFUSION IV STA (10:17)
[2021-02-08] MEDS ORDERED: POTASSIUM PHOSPHATE 15 MMOL in SODIUM CHLORIDE 0.9% 250 ML IV ONE (10:30)
[2021-02-08] MEDS: POT PHOSPHATE MONOBASIC W/ SOD TAB PO SCH ×3 (12:24→20:24)
[2021-02-08] MEDS: DOXYCYCLINE HYCLATE 100 MG in DEXTROSE 5% 100 ML IV SCH (12:24)
[2021-02-08] MEDS: HEPARIN SODIUM/DEXTROSE 25,000 UNITS/500 ML BAG IV SCH ×2 (12:27→17:02)
[2021-02-08] MEDS: SODIUM CHLORIDE 0.9% 1000ML 1,000 ML IV SCH (13:24)
[2021-02-08] MEDS: ATORVASTATIN 10 MG TAB PO SCH (20:24)
[2021-02-09] MEDS: DOXYCYCLINE HYCLATE 100 MG in DEXTROSE 5% 100 ML IV SCH ×2 (00:42→12:41)
[2021-02-09] MEDS: SODIUM CHLORIDE 0.9% 1000ML 1,000 ML IV SCH ×2 (05:52→21:16)
[2021-02-09 06:11] LABS: Hematocrit (blood only) 35.2 % (37-47); Hemoglobin 11.7 g/dL (12.0-16.0); Mean Corpuscular Hgb Conc 33.2 g/dL (32-36); Mean Corpuscular Volume 90.3 fL (80-100); Mean Platelet Volume 10.1 fL (7.4-10.4); Platelet Count 144 K/uL (130-400); RDW Coefficient of Variation 14.4 % (11.5-14.5); RDW Standard Deviation 47.9 fL (36.4-46.3); White Blood Count 6.88 K/uL (4.8-10.8)
[2021-02-09 06:40] LABS: Albumin Level 2.7 gm/dl (3.4-5.0); BUN Creatinine Ratio 17.4 (10-20); Calcium 8.3 mg/dl (8.5-10.1); Creatinine Clr Calc Pharmacy 78.8 ml/min; Est GFR (African American) 103.7 ml/min; Est GFR (Non-African American) 89.5 ml/min; Magnesium 1.9 mg/dl (1.8-2.4); Partial Thromboplastin Time 53.5 Seconds (21.0-31.0); Potassium 3.6 mmol/L (3.5-5.1)
[2021-02-09 06:45] LABS: Albumin Globulin Ratio 0.8 (0.9-2); Bilirubin,Total 0.4 mg/dl (0.2-1); Globulin 3.4 gm/dl (2.5-4.0); Phosphorus 2.9 mg/dl (2.5-4.9); Total Protein 6.1 gm/dl (6.4-8.2)
[2021-02-09] MEDS ORDERED: POTASSIUM CHLORIDE CRTAB 20 MEQ TABCR PO STA (07:30)
--- NOTE | 2021-02-09 07:30 | Hospitalist Progress Note ---
Date of Service February 09, 2021 Assessment & Plan (1) Atrial fibrillation with rapid ventricular response: Pt denies any recent missed doses of rate-control medications. - Admit to PCU for monitoring - Metoprolol tartrate 50 mg po BID with additional PRN IV ordered - now metopro lol succinate 50 BID - Check ECHO -EF 50 to 55%. Moderate aortic regurg. Moderate mitral regurg. Mild tricuspid regurg. Doppler findings do not suggest pulmonary hypertension. - Elevated troponin - secondary to demand ischemia in the setting of acute Lyme disease and A. fib with RVR. No regional wall motion abnormalities on echo - EKG reviewed by cardiology - nondiagnostic given left bundle branch block - HOLD Eliquis for now, started heparin drip, no bolus. Per pharmacy, given patient's elevated LFTs, not recommend Eliquis at this time as it is metabolized by liver. - Potassium supplement - follow labs - IV hydration (2) Lyme disease: Rash suspicious for erythema migrans, especially with known history of multiple tick bites - IgM and IgG positive WB pending - Started treatment empirically on admission with doxycycline 100 mg BID x 14 days - peripheral smear for anaplasmosis - negative - AST elevated on labs today - trended down, cont. to monitor Febrile overnight (02/06-02/07), ceftriaxone added by environmental aide. Blood cultures obtained and pending UA negative (3) Weakness: Multi-factorial - likely secondary to lyme dis. - IVF hydration - PT/OT consult (4) Hypertension: Will hold Lisinopril for now due to borderline BP in the ED - Continuing beta-tye as per #1 -BP improved, likely resume lisinopril tmrw (5) Dyslipidemia: - Fasting lipid panel - TC 125, LDL 73, TG 81 - Continue statin Code status: Full Code DVT prophylaxis: heparin gtt Admission and Anticipated Discharge Date Admission Date: February 06, 2021 Subjective Patient seen in follow-up of elevated troponin, Afib, fever, Lyme disease Currently sitting up in chair,in NAD No chest pain, abdominal pain, no difficulty breathing, reports okay appetite Temp 37.8C this AM Continues to feel very week Afib HR controlled 70s Review of Systems Constitutional: + fatigue Respiratory: no cough and no dyspnea Cardiovascular: no chest pain and no palpitations Gastrointestinal: no abdominal pain, no nausea and no vomiting Integumentary: + rash Neurologic: + generalized weakness Physical Exam Physical Exam: Constitutional: WD/WN, vitals as above no acute distress Eyes: + anicteric sclerae; no conjunctival abnormality Neck: trachea midline Respiratory: no respiratory distress and no labored breathing, lungs clear to auscultation bilaterally; no rales, no rhonchi and no wheezes Cardiovascular: Rate/Rhythm:+ irregularly irregular HR low 100s Extremities: no edema Gastrointestinal (Abdomen): Inspection/Auscultation: normal bowel sounds; abdomen not distended Percussion/Palpation: abdomen soft; abdomen nontender Musculoskeletal: Head/Neck/Chest: normocephalic, head atraumatic and neck supple Skin: ~6 cm diameter erythematous circular rash on medial right thigh with central darkening of erythema - no open area or active drainage Two circular areas of ecchymosis bilateral anterior shoulder Neurologic: no focal motor deficits Speech / Cognition: normal speech Motor/Sensory: no tremor Psychiatric: A+Ox3, euthymic affect Results & Data Results & Data ([facility]) Vital Signs (Past 12 Hours) Vital Signs Temp Pulse Pulse Resp BP Pulse Ox 02/09/21 03:38 36.7 C 72 18 113/65 95 02/09/21 00:31 36.9 C 101 H 18 108/55 L 95 02/08/21 23:19 89 02/08/21 20:00 68 02/08/21 19:41 37.1 C 87 18 125/70 95 Laboratory Results 02/09/21 02/09/21 02/09/21 Range/Units 05:49 05:49 05:49 WBC 6.88 (4.8-10.8) K/uL RBC 3.90 L (4.2-5.4) M/uL Hgb 11.7 L (12.0-16.0) g/dL Hct 35.2 L (37-47) % MCV 90.3 (80-100) fL MCH 30.0 (25-34) pg MCHC 33.2 (32-36) g/dL RDW Std Deviation 47.9 H (36.4-46.3) fL RDW Coeff of Dl 14.4 (11.5-14.5) % Plt Count 144 (130-400) K/uL MPV 10.1 (7.4-10.4) fL APTT 53.5 H* (21.0-31.0) Seconds PTT Ratio 2.0 Sodium 141 (136-145) mmol/L Potassium 3.6 (3.5-5.1) mmol/L Chloride 110 H (98-107) mmol/L Carbon Dioxide 26 (21-32) mmol/L Anion Gap 5.0 (3-11) BUN 11 (7-18) mg/dl Creatinine 0.62 (0.6-1.2) mg/dl Est Cr Clr Drug Dosing 78.8 ml/min Est GFR ( Amer) 103.7 ml/min Est GFR (Non-Af Amer) 89.5 ml/min BUN/Creatinine Ratio 17.4 (10-20) Glucose 90 (70-99) mg/dl Calcium 8.3 L (8.5-10.1) mg/dl Phosphorus 2.9 D (2.5-4.9) mg/dl Magnesium 1.9 (1.8-2.4) mg/dl Total Bilirubin 0.4 (0.2-1) mg/dl AST 127 H (15-37) U/L ALT 78 (12-78) U/L Alkaline Phosphatase 62 (45-117) U/L Total Protein 6.1 L (6.4-8.2) gm/dl Albumin 2.7 L (3.4-5.0) gm/dl Globulin 3.4 (2.5-4.0) gm/dl Albumin/Globulin Ratio 0.8 L (0.9-2) 02/08/ Range/Units 07:25 WBC (4.8-10.8) K/uL RBC (4.2-5.4) M/uL Hgb (12.0-16.0) g/dL Hct (37-47) % MCV (80-100) fL MCH (25-34) pg MCHC (32-36) g/dL RDW Std Deviation (36.4-46.3) fL RDW Coeff of Dl (11.5-14.5) % Plt Count (130-400) K/uL MPV (7.4-10.4) fL APTT 52.7 H* (21.0-31.0) Seconds PTT Ratio 2.0 Sodium (136-145) mmol/L Potassium (3.5-5.1) mmol/L Chloride (98-107) mmol/L Carbon Dioxide (21-32) mmol/L Anion Gap (3-11) BUN (7-18) mg/dl Creatinine (0.6-1.2) mg/dl Est Cr Clr Drug Dosing ml/min Est GFR ( Amer) ml/min Est GFR (Non-Af Amer) ml/min BUN/Creatinine Ratio (10-20) Glucose (70-99) mg/dl Calcium (8.5-10.1) mg/dl Phosphorus (2.5-4.9) mg/dl Magnesium (1.8-2.4) mg/dl Total Bilirubin (0.2-1) mg/dl AST (15-37) U/L ALT (12-78) U/L Alkaline Phosphatase (45-117) U/L Total Protein (6.4-8.2) gm/dl Albumin (3.4-5.0) gm/dl Globulin (2.5-4.0) gm/dl Albumin/Globulin Ratio (0.9-2) Medications Administered Current Inpatient Medications Acetaminophen (Acetaminophen 325 Mg Tab) 650 mg PO Q4H PRN PRN Reason: Pain or Fever Stop: 03/08/21 15:38 Last Admin: 02/07/21 08:02 Dose: 650 mg Documented by: Aspirin (Aspirin 81 Mg Ectab) 81 mg PO QAM [facility] Stop: 03/09/21 08:59 Last Admin: 02/08/21 07:55 Dose: 81 mg Documented by: Atorvastatin Calcium (Atorvastatin 10 Mg Tab) 10 mg PO PM [facility] Stop: 03/08/21 20:59 Last Admin: 02/08/21 20:24 Dose: 10 mg Documented by: Heparin Sodium/Dextrose (Heparin Sodium/Dextrose) 25,000 units in 500 mls @ 22 mls/hr IV .[id number] [facility]; Protocol Stop: 03/08/21 13:53 Last Titration: 02/09/21 06:51 Dose: 1,050 units/hr, 21 mls/hr Documented by: Doxycycline Hyclate 100 mg/ (Dextrose) 110 mls @ 50 mls/hr IV Q12H [facility] Stop: 02/17/21 00:00 Last Infusion: 02/09/21 03:00 Dose: Infused Documented by: Ceftriaxone Sodium 2,000 mg/ (Dextrose) 70 mls @ 100 mls/hr IV DAILY [facility]; Protocol Stop: 02/16/21 19:59 Last Infusion: 02/08/21 09:02 Dose: Infused Documented by: Sodium Chloride (Nss 1000ml) 1,000 mls @ 80 mls/hr IV .[id number] [facility] [place] Stop: 03/09/21 10:29 Last Admin: 02/09/21 05:52 Dose: 80 mls/hr Documented by: Metoprolol Succinate (Metoprolol Succ 50mg Ext Rel Tab) 50 mg PO BID [facility] Stop: 03/10/21 08:59 Last Admin: 02/08/21 20:24 Dose: 50 mg Documented by: Metoprolol Tartrate (Metoprolol Tartrate 1 Mg/Ml Vial) 2.5 mg IV Q6 PRN PRN Reason: Tachycardia Stop: 03/08/21 13:39 Last Admin: 02/06/21 18:04 Dose: 2.5 mg Documented by: Potassium Phosphate (Pot Phosphate Monobasic W/ Sod Tab) 1 tab PO QID [facility] Stop: 03/10/21 12:59 Last Admin: 02/08/21 20:24 Dose: 1 tab Documented by:
[2021-02-09] MEDS: METOPROLOL SUCC 50MG EXT REL TAB PO SCH ×2 (07:58→21:17)
[2021-02-09] MEDS: ASPIRIN 81 MG ECTAB PO SCH (07:58)
[2021-02-09] MEDS: POT PHOSPHATE MONOBASIC W/ SOD TAB PO SCH ×4 (07:58→21:17)
[2021-02-09] MEDS: cefTRIAXone SODIUM 2,000 MG in DEXTROSE 5% 50 ML IV SCH (09:01)
--- NOTE | 2021-02-09 12:37 | Cardiology Progress Note ---
Date of Service February 09, 2021 Assessment & Plan (1) Paroxysmal atrial fibrillation with RVR: Rate control strategy recommended for the time being, however, cardioversion may be considered prior to discharge pending clinical course We will keep n.p.o. and review in a.m. though likely will continue rate control strategy Continue metoprolol succinate at 50 mg twice per day Transaminitis appears to be improving would recommend changing heparin to Eliquis Lisinopril remains on hold however blood pressures remain controlled (2) Lyme disease: Western blot pending. Antibiotics per internal medicine. (3) Mitral regurgitation: Moderate in the setting of atrial fibrillation with rapid ventricular response. No signs/symptoms of decompensated heart failure or pulmonary hypertension. Continue treatment of atrial fibrillation as noted above. (4) Aortic regurgitation: Mild progression compared to most recent echocardiogram. No specific treatment is indicated at this time. Routine, repeat imaging in 1 year. Admission and Anticipated Discharge Date Admission Date: February 06, 2021 Subjective Patient was seen and examined, chart, medications, telemetry reviewed. Overall appears slightly improved. Still remains in atrial fibrillation however with good rate control. No bradycardia arrhythmias Physical Exam Constitutional: well developed and well nourished; no acute distress Respiratory: normal respiratory effort; no respiratory distress and no labored breathing Auscultation: lungs clear to auscultation bilaterally; breath sounds present, no diminished lung sounds, no crackles, no rales, no rhonchi and no wheezes Cardiovascular: Rate/Rhythm: + irregularly irregular Heart Sounds: + murmur (2/6 midsystolic murmur heard best at the apex) Vessels: no JVD Extremities: no edema Gastrointestinal (Abdomen): Inspection/Auscultation: normal bowel sounds Percussion/Palpation: abdomen soft; abdomen nontender, no guarding and abdomen not rigid Neurologic: CN's II-XI intact bilaterally and moves all extremities; no focal motor deficits Motor/Sensory: no tremor Psychiatric: A+Ox3, euthymic affect Results & Data ([facility]) Vital Signs (Past 12 Hours) Vital Signs Temp Pulse Pulse Resp BP Pulse Ox Pulse Ox 02/09/21 11:55 36.3 C L 82 21 118/65 97 02/09/21 08:00 95 02/09/21 07:33 37.8 C H 79 20 124/90 95 02/09/21 07:00 73 02/09/21 03:38 36.7 C 72 18 113/65 95 Laboratory Results Laboratory Results - last 24 hr 02/09/21 02/09/21 02/09/21 05:49 05:49 05:49 WBC 6.88 RBC 3.90 L Hgb 11.7 L Hct 35.2 L MCV 90.3 MCH 30.0 MCHC 33.2 RDW Std Deviation 47.9 H RDW Coeff of Dl 14.4 Plt Count 144 MPV 10.1 APTT 53.5 H* PTT Ratio 2.0 Sodium 141 Potassium 3.6 Chloride 110 H Carbon Dioxide 26 Anion Gap 5.0 BUN 11 Creatinine 0.62 Est Cr Clr Drug Dosing 78.8 Est GFR ( Amer) 103.7 Est GFR (Non-Af Amer) 89.5 BUN/Creatinine Ratio 17.4 Glucose 90 Calcium 8.3 L Phosphorus 2.9 D Magnesium 1.9 Total Bilirubin 0.4 AST 127 H ALT 78 Alkaline Phosphatase 62 Total Protein 6.1 L Albumin 2.7 L Globulin 3.4 Albumin/Globulin Ratio 0.8 L
[2021-02-09] MEDS: HEPARIN SODIUM/DEXTROSE 25,000 UNITS/500 ML BAG IV SCH (18:03)
[2021-02-09] MEDS: ATORVASTATIN 10 MG TAB PO SCH (21:17)
[2021-02-10] MEDS: DOXYCYCLINE HYCLATE 100 MG in DEXTROSE 5% 100 ML IV SCH ×2 (00:26→11:19)
[2021-02-10 06:24] LABS: Hemoglobin 11.6 g/dL (12.0-16.0); Mean Corpuscular Hemoglobin 29.4 pg (25-34); Mean Corpuscular Hgb Conc 33.1 g/dL (32-36); Mean Corpuscular Volume 88.6 fL (80-100); Mean Platelet Volume 10.2 fL (7.4-10.4); Platelet Count 158 K/uL (130-400); RDW Coefficient of Variation 14.4 % (11.5-14.5); RDW Standard Deviation 46.9 fL (36.4-46.3); Red Blood Count 3.95 M/uL (4.2-5.4); White Blood Count 5.55 K/uL (4.8-10.8)
[2021-02-10 06:46] LABS: Partial Thromboplastin Ratio 1.9; Partial Thromboplastin Time 50.3 Seconds (21.0-31.0)
[2021-02-10 06:57] LABS: Albumin Level 2.6 gm/dl (3.4-5.0); BUN Creatinine Ratio 16.4 (10-20); Calcium 9.1 mg/dl (8.5-10.1); Creatinine Clr Calc Pharmacy 76.7 ml/min; Est GFR (African American) 102.6 ml/min; Est GFR (Non-African American) 88.5 ml/min; Magnesium 1.9 mg/dl (1.8-2.4); Potassium 3.9 mmol/L (3.5-5.1)
[2021-02-10 07:00] LABS: Albumin Globulin Ratio 0.7 (0.9-2); Bilirubin,Total 0.4 mg/dl (0.2-1); Globulin 3.6 gm/dl (2.5-4.0); Total Protein 6.2 gm/dl (6.4-8.2)
--- NOTE | 2021-02-10 07:21 | Hospitalist Progress Note ---
Date of Service February 10, 2021 Assessment & Plan (1) Atrial fibrillation with rapid ventricular response: Pt denies any recent missed doses of rate-control medications. - Admit to PCU for monitoring - Metoprolol tartrate 50 mg po BID with additional PRN IV ordered - now metopro lol succinate 50 BID - pt to be discharged on this dose as well - Check ECHO -EF 50 to 55%. Moderate aortic regurg. Moderate mitral regurg. Mild tricuspid regurg. Doppler findings do not suggest pulmonary hypertension. - Elevated troponin - secondary to demand ischemia in the setting of acute Lyme disease and A. fib with RVR. No regional wall motion abnormalities on echo - EKG reviewed by cardiology - nondiagnostic given left bundle branch block - Held Eliquis on admission, started heparin drip, no bolus. Per pharmacy, given patient's elevated LFTs, not recommend Eliquis at this time as it is metabolized by liver. Resume eliquis on discharge - Potassium supplement - follow labs - IV hydration (2) Lyme disease: Rash suspicious for erythema migrans, especially with known history of multiple tick bites - IgM and IgG positive WB pending - Started treatment empirically on admission with doxycycline 100 mg BID x 14 days - peripheral smear for anaplasmosis - negative - AST elevated on labs today - trended down, cont. to monitor Febrile overnight (02/06-02/07), ceftriaxone added by sleeve sewer. Blood cultures obtained and pending UA negative Pt will be discharged on a 10 day course of PO doxycycline Follow up w/ PCP (3) Weakness: Multi-factorial - likely secondary to lyme dis. - IVF hydration - PT/OT consult (4) Hypertension: Held Lisinopril on admission due to borderline BP in the ED - Continuing beta-tye as per #1 -BP improved, resumed lisinopril (5) Dyslipidemia: - Fasting lipid panel - TC 125, LDL 73, TG 81 - Continue statin Code status: Full Code DVT prophylaxis: heparin gtt- > now back on Eliquis Admission and Anticipated Discharge Date Admission Date: February 06, 2021 Subjective Patient seen in follow-up of elevated troponin, Afib, fever, Lyme disease Currently sitting up in chair,in NAD No chest pain, abdominal pain, no difficulty breathing, reports okay appetite Continues to feel week but much improved Afib HR controlled 70s Review of Systems Review of Systems: All systems reviewed & are unremarkable except as noted in HPI & below Constitutional: + fatigue; no fever and no chills Respiratory: no cough and no dyspnea Cardiovascular: no chest pain and no palpitations Gastrointestinal: no abdominal pain, no nausea and no vomiting Integumentary: + rash Neurologic: + generalized weakness Physical Exam Physical Exam: Constitutional: WD/WN, vitals as above no acute distress Eyes: + anicteric sclerae; no conjunctival abnormality Neck: trachea midline Respiratory: no respiratory distress and no labored breathing, lungs clear to auscultation bilaterally; no rales, no rhonchi and no wheezes Cardiovascular: Rate/Rhythm:+ irregularly irregular HR low 100s Extremities: no edema Gastrointestinal (Abdomen): Inspection/Auscultation: normal bowel sounds; abdomen not distended Percussion/Palpation: abdomen soft; abdomen nontender Musculoskeletal: Head/Neck/Chest: normocephalic, head atraumatic and neck supple Skin: ~6 cm diameter erythematous circular rash on medial right thigh with central darkening of erythema - no open area or active drainage Two circular areas of ecchymosis bilateral anterior shoulder Neurologic: no focal motor deficits Speech / Cognition: normal speech Motor/Sensory: no tremor Psychiatric: A+Ox3, euthymic affect Results & Data Results & Data ([facility]) Vital Signs (Past 12 Hours) Vital Signs Temp Pulse Pulse Resp BP BP Pulse Ox 02/10/21 03:18 36.9 C 91 H 17 138/90 97 02/09/21 22:49 36.7 C 66 17 125/63 95 02/09/21 20:00 87 02/09/21 19:29 36.7 C 65 18 112/66 94 Laboratory Results 02/10/21 02/10/21 02/10/21 Range/Units 05:58 05:58 05:58 WBC 5.55 (4.8-10.8) K/uL RBC 3.95 L (4.2-5.4) M/uL Hgb 11.6 L (12.0-16.0) g/dL Hct 35.0 L (37-47) % MCV 88.6 (80-100) fL MCH 29.4 (25-34) pg MCHC 33.1 (32-36) g/dL RDW Std Deviation 46.9 H (36.4-46.3) fL RDW Coeff of Dl 14.4 (11.5-14.5) % Plt Count 158 (130-400) K/uL MPV 10.2 (7.4-10.4) fL APTT 50.3 H* (21.0-31.0) Seconds PTT Ratio 1.9 Sodium 142 (136-145) mmol/L Potassium 3.9 (3.5-5.1) mmol/L Chloride 111 H (98-107) mmol/L Carbon Dioxide 26 (21-32) mmol/L Anion Gap 5.0 (3-11) BUN 10 (7-18) mg/dl Creatinine 0.64 (0.6-1.2) mg/dl Est Cr Clr Drug Dosing 76.7 ml/min Est GFR ( Amer) 102.6 ml/min Est GFR (Non-Af Amer) 88.5 ml/min BUN/Creatinine Ratio 16.4 (10-20) Glucose 86 (70-99) mg/dl Calcium 9.1 (8.5-10.1) mg/dl Magnesium 1.9 (1.8-2.4) mg/dl Total Bilirubin 0.4 (0.2-1) mg/dl AST 109 H (15-37) U/L ALT 87 H (12-78) U/L Alkaline Phosphatase 65 (45-117) U/L Total Protein 6.2 L (6.4-8.2) gm/dl Albumin 2.6 L (3.4-5.0) gm/dl Globulin 3.6 (2.5-4.0) gm/dl Albumin/Globulin Ratio 0.7 L (0.9-2) Medications Administered Current Inpatient Medications Acetaminophen (Acetaminophen 325 Mg Tab) 650 mg PO Q4H PRN PRN Reason: Pain or Fever Stop: 03/08/21 15:38 Last Admin: 02/07/21 08:02 Dose: 650 mg Documented by: Apixaban (Apixaban 5 Mg Tablet) 5 mg PO BID [facility] Stop: 03/12/21 08:59 Aspirin (Aspirin 81 Mg Ectab) 81 mg PO QAM [facility] Stop: 03/09/21 08:59 Last Admin: 02/09/21 07:58 Dose: 81 mg Documented by: Atorvastatin Calcium (Atorvastatin 10 Mg Tab) 10 mg PO PM [facility] Stop: 03/08/21 20:59 Last Admin: 02/09/21 21:17 Dose: 10 mg Documented by: Heparin Sodium/Dextrose (Heparin Sodium/Dextrose) 25,000 units in 500 mls @ 22 mls/hr IV .[id number] [facility]; Protocol Stop: 03/08/21 13:53 Last Titration: 02/09/21 18:43 Dose: 1,050 units/hr, 21 mls/hr Documented by: Doxycycline Hyclate 100 mg/ (Dextrose) 110 mls @ 50 mls/hr IV Q12H [facility] Stop: 02/17/21 00:00 Last Infusion: 02/10/21 02:40 Dose: Infused Documented by: Ceftriaxone Sodium 2,000 mg/ (Dextrose) 70 mls @ 100 mls/hr IV DAILY [facility]; Protocol Stop: 02/16/21 19:59 Last Infusion: 02/09/21 10:52 Dose: Infused Documented by: Sodium Chloride (Nss 1000ml) 1,000 mls @ 80 mls/hr IV .[id number] [facility] Stop: 03/09/21 10:29 Last Admin: 02/09/21 21:16 Dose: 80 mls/hr Documented by: Lisinopril (Lisinopril 10 Mg Tab) 10 mg PO QAM [facility] Stop: 03/12/21 08:59 Metoprolol Succinate (Metoprolol Succ 50mg Ext Rel Tab) 50 mg PO BID [facility] Stop: 03/10/21 08:59 Last Admin: 02/09/21 21:17 Dose: 50 mg Documented by: Metoprolol Tartrate (Metoprolol Tartrate 1 Mg/Ml Vial) 2.5 mg IV Q6 PRN PRN Reason: Tachycardia Stop: 03/08/21 13:39 Last Admin: 02/06/21 18:04 Dose: 2.5 mg Documented by: Potassium Phosphate (Pot Phosphate Monobasic W/ Sod Tab) 1 tab PO QID [facility] Stop: 03/10/21 12:59 Last Admin: 02/09/21 21:17 Dose: 1 tab Documented by:
[2021-02-10] MEDS ORDERED: lisinopril 10 MG TAB PO SCH (09:00)
[2021-02-10] MEDS ORDERED: APIXABAN 5 MG TABLET PO SCH (09:00)
[2021-02-10] MEDS: ASPIRIN 81 MG ECTAB PO SCH (09:18)
[2021-02-10] MEDS: POT PHOSPHATE MONOBASIC W/ SOD TAB PO SCH ×2 (09:18→13:57)
[2021-02-10] MEDS: METOPROLOL SUCC 50MG EXT REL TAB PO SCH (09:18)
[2021-02-10] MEDS: cefTRIAXone SODIUM 2,000 MG in DEXTROSE 5% 50 ML IV SCH (09:21)
--- NOTE | 2021-02-10 11:58 | Discharge Summary ---
Date of Service February 10, 2021 Admission HPI Per Admitting Provider This is a 75 y/o female with a hx of PAF on chronic AC, HTN, dyslipidemia, prior Lyme in 2019, and DJD who presents to the ED today for progressive weakness. Over the past two days, she has noticed gradually progressive weakness in her arms and legs, such that this AM, she was unable to get out of bed and fell. She reports that she did not injure herself in the fall, but that she came to the ED because of the progressive weakness interfering with her ADLs. She reports a a tight bandlike discomfort in her head during the same time. She also complaints of a worsening rash on her right thigh. She reports at lest 5 known tick bites in 2020, most recently removing a tick two days. She reports a similar rash last year for which she was diagnosed with possible Lyme disease and treated with a 14 day course of doxycycline. She did note chills yesterday but denies documented fever. Her shoulders are achy bilaterally today but denies other significant joint pain. She denies chest pain, palpitations, shortness of breath, N/V/D, abdominal pain. No recent travel. She has not gotten the COVID vaccine. Admission Exam Per Admitting Provider Constitutional: WD/WN, vitals as above no acute distress Eyes: + anicteric sclerae; no conjunctival abnormality Neck: trachea midline Respiratory: no respiratory distress and no labored breathing Auscultation: lungs clear to auscultation bilaterally; no rales, no rhonchi and no wheezes Cardiovascular: Rate/Rhythm: regular rate and + irregularly irregular Vessels: dorsalis pedis pulses present and radial pulses present; no carotid bruit Extremities: normal capillary refill; no edema Gastrointestinal (Abdomen): Inspection/Auscultation: normal bowel sounds; abdomen not distended Percussion/Palpation: abdomen soft; abdomen nontender Musculoskeletal: Head/Neck/Chest: normocephalic, head atraumatic and neck supple Extremities: no cyanosis and no clubbing Skin: ~6 cm diameter erythematous circular rash on medial right thigh with central darkening of erythema - no open area or active drainage Two circular areas of ecchymosis bilateral anterior shoulder Neurologic: no focal motor deficits Speech / Cognition: normal speech Motor/Sensory: no tremor Psychiatric: A+Ox3, euthymic affect Principal Diagnosis Atrial fibrillation with RVR Lyme disease Generalized weakness Discharge Exam Constitutional: WD/WN, vitals as above no acute distress Eyes: + anicteric sclerae; no conjunctival abnormality Neck: trachea midline Respiratory: no respiratory distress and no labored breathing, lungs clear to auscultation bilaterally; no rales, no rhonchi and no wheezes Cardiovascular: Rate/Rhythm:+ irregularly irregular HR low 100s Extremities: no edema Gastrointestinal (Abdomen): Inspection/Auscultation: normal bowel sounds; abdomen not distended Percussion/Palpation: abdomen soft; abdomen nontender Musculoskeletal: Head/Neck/Chest: normocephalic, head atraumatic and neck supple Skin: ~6 cm diameter erythematous circular rash on medial right thigh with central darkening of erythema - no open area or active drainage Two circular areas of ecchymosis bilateral anterior shoulder Neurologic: no focal motor deficits Speech / Cognition: normal speech Motor/Sensory: no tremor Psychiatric: A+Ox3, euthymic affect Discharge Data Allergies Allergy/AdvReac Type Severity Reaction Status Date / Time No Known Allergies Allergy Verified 02/06/21 11:52 Consultations 02/06/21 12:47 ED Decision to Admit Stat 02/06/21 15:39 Consult Cardiology Routine Ordered Studies 02/06/21 11:22 CT head/brain wo con Stat IMPRESSION: There is no hemorrhage, mass effect, or evidence of acute territorial ischemia by CT criteria. Hospital Course (1) Atrial fibrillation with rapid ventricular response: Pt denies any recent missed doses of rate-control medications. - Admit to PCU for monitoring - Metoprolol tartrate 50 mg po BID with additional PRN IV ordered - now metoprolol succinate 50 BID - pt to be discharged on this dose as well - Check ECHO -EF 50 to 55%. Moderate aortic regurg. Moderate mitral regurg. Mild tricuspid regurg. Doppler findings do not suggest pulmonary hypertension. - Elevated troponin - secondary to demand ischemia in the setting of acute Lyme disease and A. fib with RVR. No regional wall motion abnormalities on echo - EKG reviewed by cardiology - nondiagnostic given left bundle branch block - Held Eliquis on admission, started heparin drip, no bolus. Per pharmacy, given patient's elevated LFTs, not recommend Eliquis at this time as it is metabolized by liver. Resume eliquis on discharge - Potassium supplement - follow labs - IV hydration (2) Lyme disease: Rash suspicious for erythema migrans, especially with known history of multiple tick bites - IgM and IgG positive WB pending - Started treatment empirically on admission with doxycycline 100 mg BID x 14 days - peripheral smear for anaplasmosis - negative - AST elevated on labs today - trended down, cont. to monitor Febrile overnight (02/06-02/07), ceftriaxone added by shipping receiving manager. Blood cultures obtained and pending UA negative Pt will be discharged on a 10 day course of PO doxycycline Follow up w/ PCP (3) Weakness: Multi-factorial - likely secondary to lyme dis. - IVF hydration - PT/OT consult (4) Hypertension: Held Lisinopril on admission due to borderline BP in the ED - Continuing beta-tye as per #1 -BP improved, resumed lisinopril (5) Dyslipidemia: - Fasting lipid panel - TC 125, LDL 73, TG 81 - Continue statin Code status: Full Code DVT prophylaxis: heparin gtt- > now back on Eliquis Total Time Total Time Spent Total Time Spent (In Minutes): 40 Total Time Includes: Examination of the Patient, Discharge Planning, Medication Reconciliation and Communication With Other Providers Discharge Plan Discharge Items Patient Disposition: Home - Self-Care Reason For Visit: AFIB WITH RVR Discharge Diagnosis: Atrial fibrillation with RVR Lyme disease Generalized weakness Activity: Per Instructions section Non-emergency contact: Primary Care Provider Call non-emergency contact if: you have any medication questions and your symptoms worsen Follow-up/Referrals: Gemma Garsia DO [Primary Care Provider] - (Date & Time 02/18/2021 10:00 AM Provider Gemma Garsia DO Department Family [facility] ) Diet: Heart Healthy Addtl Attending Provider Instructions: Follow-up with your primary care doctor, the appointment was scheduled for you for February 18. Your metoprolol succinate dose was increased to 50 mg twice a day, for your atrial fibrillation. The new prescription was sent to your pharmacy. Continue taking doxycycline 100 mg twice a day, for Lyme disease. Your family physician will need to follow-up on the final blood work/cultures. Pending Studies at Discharge: Yes Studies:: Final blood culture Lyme dis. - Western blot Stand-Alone Forms: My [employer], Smoking Cessation Medications and DC Order Prescriptions: New metoprolol succinate 50 mg Tablet Extended Release 24 Hr 50 mg PO BID Qty: 60 RF: 0 doxycycline hyclate 100 mg tablet 100 mg PO BID 10 Days Qty: 20 RF: 0 Continued amoxicillin 500 mg tablet 2,000 mg PO ONCE RF: 0 multivitamin Tablet 1 tab PO QAM RF: 0 atorvastatin 10 mg tablet 10 mg PO PM RF: 0 aspirin 81 mg tablet,delayed release (DR/EC) 81 mg PO QAM RF: 0 ascorbic acid (vitamin C) [Vitamin C] 500 mg Tablet 500 mg PO BID RF: 0 lisinopril 10 mg tablet 10 mg PO QAM RF: 0 Eliquis 5 mg tablet 5 mg PO BID RF: 0 Discontinued metoprolol succinate 25 mg tablet extended release 24 hr 25 mg PO PM RF: 0 Discharge Orders: Discharge Order (Routine); Ordered 02/10/21 Ordered By: Adrien Oliveira Admission Data Admit Date/Time: 02/06/21 13:34 Attending Provider: Adrien Oliveira Admit Provider: Waylon Frias Primary Care Provider: Gemma Garsia Other Providers: Waylon Frias ; Harpal Kirkpatrick
--- NOTE | 2021-02-10 11:59 | Cardiology Progress Note ---
Date of Service February 10, 2021 Assessment & Plan (1) Paroxysmal atrial fibrillation with RVR: Rate control strategy recommended Continue metoprolol succinate at 50 mg twice per day Anticoagulation with apixaban resumed. Would recommend cardiology follow-up in 3 to 4 weeks and reassess need for synchronized cardioversion versus ongoing rate rate control management (2) Lyme disease: Western blot pending. Antibiotics per internal medicine. (3) Mitral regurgitation: Moderate in the setting of atrial fibrillation with rapid ventricular response. No signs/symptoms of decompensated heart failure or pulmonary hypertension. Continue treatment of atrial fibrillation as noted above. (4) Aortic regurgitation: Mild progression compared to most recent echocardiogram. No specific treatment is indicated at this time. Routine, repeat imaging in 1 year. Admission and Anticipated Discharge Date Admission Date: February 06, 2021 Subjective Patient was seen and examined, chart, medications, telemetry reviewed. No dizziness or lightheadedness. No chest pain or discomfort. Patient remains in atrial fibrillation though with good rate control Results & Data ([facility]) Vital Signs (Past 12 Hours) Vital Signs Temp Pulse Resp BP BP Pulse Ox 02/10/21 11:21 36.4 C 74 16 142/62 H 96 02/10/21 07:00 36.4 C 76 18 146/80 H 96 02/10/21 03:18 36.9 C 91 H 17 138/90 97 Laboratory Results Laboratory Results - last 24 hr 02/10/21 02/10/21 02/10/21 05:58 05:58 05:58 WBC 5.55 RBC 3.95 L Hgb 11.6 L Hct 35.0 L MCV 88.6 MCH 29.4 MCHC 33.1 RDW Std Deviation 46.9 H RDW Coeff of Dl 14.4 Plt Count 158 MPV 10.2 APTT 50.3 H* PTT Ratio 1.9 Sodium 142 Potassium 3.9 Chloride 111 H Carbon Dioxide 26 Anion Gap 5.0 BUN 10 Creatinine 0.64 Est Cr Clr Drug Dosing 76.7 Est GFR ( Amer) 102.6 Est GFR (Non-Af Amer) 88.5 BUN/Creatinine Ratio 16.4 Glucose 86 Calcium 9.1 Magnesium 1.9 Total Bilirubin 0.4 AST 109 H ALT 87 H Alkaline Phosphatase 65 Total Protein 6.2 L Albumin 2.6 L Globulin 3.6 Albumin/Globulin Ratio 0.7 L
--- NOTE | 2021-02-10 13:06 | Electrocardiogram Report ---
Test Reason : Blood Pressure : / mmHG Vent. Rate : 107 BPM Atrial Rate : 104 BPM P-R Int : 000 ms QRS Dur : 148 ms QT Int : 412 ms P-R-T Axes : 000 -05 111 degrees QTc Int : 550 ms Atrial fibrillation with rapid ventricular response Left bundle branch block Abnormal ECG When compared with ECG of 07-FEB-2021 05:29, HR has increased Confirmed by Rufus Hawthorne ([id number]) on 02/10/2021 1:06:39 PM Referred By: REFERRED SELF Confirmed By:Rufus Hawthorne
[2021-02-10] MEDS: SODIUM CHLORIDE 0.9% 1000ML 1,000 ML IV SCH (13:16)
[2021-02-10 14:48] LABS: 18KDIGG Band REACTIVE; 23KDIGG Band REACTIVE; 23KDIGM Band REACTIVE; 28KDIGG Band NON-REACTIVE; 30KDIGG Band NON-REACTIVE; 39KDIGG Band REACTIVE; 39KDIGM Band NON-REACTIVE; 41KDIGG Band REACTIVE; 41KDIGM Band NON-REACTIVE; 45KDIGG Band NON-REACTIVE; 58KDIGG Band REACTIVE; 66KDIGG Band NON-REACTIVE; 93KDIGG Band NON-REACTIVE; Lyme Antibodies, WB IgG POSITIVE (NEGATIVE); Lyme Antibodies, WB IgM NEGATIVE (NEGATIVE)
[2021-02-10 21:06] LABS: Babesia microti IgG <1:64 titer (<1:64)
--- NOTE | 2021-02-11 11:00 | Electrocardiogram Report ---
Test Reason : Blood Pressure : / mmHG Vent. Rate : 084 BPM Atrial Rate : 049 BPM P-R Int : 000 ms QRS Dur : 148 ms QT Int : 450 ms P-R-T Axes : 000 -12 111 degrees QTc Int : 531 ms Atrial fibrillation Left bundle branch block Abnormal ECG When compared with ECG of 08-FEB-2021 06:02, (unconfirmed) No significant change was found Confirmed by Rufus Hawthorne ([id number]) on 02/11/2021 11:00:32 AM Referred By: REFERRED SELF Confirmed By:Rufus Hawthorne
== END 2021-02-10 14:47 | disposition home or self-care (01) | DRG 309 ==
LOC: ED 10:52 → SUATTDRO 13:34 → 2E 13:34

== ENCOUNTER 2023-02-27 01:38 | Inpatient (IN) ==
--- NOTE | 2023-02-27 02:16 | Emergency Department Note ---
Impression & Plan Hypoxia, Acute dyspnea, Atrial fibrillation with rapid ventricular response Admit to the [facility] ED Provider Note NAME: AGUSTO NIEVES AGE: 77 SEX: F ARRIVES VIA: Ambulance INFORMANT: Patient and her daughter ED PROVIDER(S): Melissa Paige DO CHIEF COMPLAINT: Shortness of breath PLAN: Disposition: Admit to the [facility] Condition: Fair MEDICAL DECISION MAKING: This is a 77-year-old female patient with history of atrial fibrillation who presents to the emergency department with sudden onset of shortness of breath. Patient awoke from sleep at 12:30 AM feeling as if she could not catch her breath. EMS was called and found her in A-fib with RVR and hypoxic. They applied supplemental oxygen and administered IV Cardizem. This improved her rate. Chest x-ray here shows evidence of pulmonary edema and bilateral pleural effusions. Patient does have some increased consolidation in the right lower lobe so she was sent for CT scan to rule out other findings. Laboratory studies revealed no leukocytosis and a stable H&H. BNP was elevated greater than 1000. Troponin was normal. [facility] for further [facility] care. Triage Nursing notes reviewed and agree with them. Additional history obtained from the patient's daughters at the bedside External medical records were reviewed including previous admissions to the hospital Vital Signs: reviewed and unremarkable Differential diagnosis: CHF, A-fib with RVR, electrolyte abnormality, cardiac ischemia ER treatment provided: Cardiac monitoring Twelve-lead EKG Supplemental oxygen Diagnostics interpreted by me: ECG: Atrial fibrillation at a rate of 77 with left bundle branch block. This was compared to an EKG from January 2023 and was unchanged. There is no obvious ectopy. Cardiac Monitoring: Atrial fibrillation at a rate of 81 Laboratory studies: See below Imaging studies: As per my independent interpretation Portable chest x-ray: Pulmonary edema with bilateral pleural effusions with the right being greater than the left. CT scan of the chest: As per stat rad report HPI: 77/F arrives for evaluation of shortness of breath. Patient awoke from sleep at 12:30 AM with significant shortness of breath. She felt as if she c ould not catch her breath. EMS was called. She admits that over the past couple of days she has been feeling fatigued and at times has been waking up with a whistling or wheezing sensation to her breathing. PAST MEDICAL HISTORY:See Below PAST SURGICAL HISTORY:See Below FAMILY HISTORY:See Below SOCIAL HISTORY:See Below HOME MEDICATIONS:See list ALLERGIES:Penicillin VITALS:See Below PHYSICAL EXAMINATION: HEENT: Head - normocephalic and atraumatic. Pupils are equal, round, and reactive to light. Extraocular eye muscles are intact, and sclera are anicteric. Nose - moist nasal mucosa without discharge. Mouth - moist buccal mucosa. Oropharynx is nonerythematous and there is no tonsillar exudate or edema noted. Neck: Supple; no JVD, nuchal rigidity, cervical lymphadenopathy, or auscultated bruits. Heart: Irregularly irregular rhythm with a normal rate. There is a normal S1 and S2 with no murmurs, clicks, or gallops appreciated. Lungs: Clear but slightly diminished at the lung bases. Abdomen: Soft, completely nontender, nondistended, with good bowel sounds. There are no palpable pulsatile masses or hepatosplenomegaly. There is no guarding, rigidity, or rebound noted. Extremities: No evidence of cyanosis, clubbing, or edema. There are easily palpable peripheral pulses. Skin: warm and dry with good turgor and no rashes. ED COURSE: Times/Reassessments: 145: Patient was evaluated in room B10. A complete history and physical was performed. An order was placed for continuous cardiac monitoring. The patient was in A-fib at a rate of 81. A twelve-lead EKG was obtained as described above. A portable chest x-ray was performed. Patient remained on supplemental oxygen. She will go for chest CT. [facility] care. I have personally spent greater than 30 minutes of critical care time in the direct management of this patient. This includes bedside care, interpretation of diagnostic studies, and testing, discussion with consultants, patient, and family members, and other required patient management activities. This 30 minutes is in excess of all separately billable procedures. 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 " Dyslipidemia Hypertension Hyperthyroidism LBBB (left bundle branch block) Left knee DJD LVH (left ventricular hypertrophy) due to hypertensive disease Right knee DJD Silent thyroiditis Surgical History H/O breast surgery " L breast, benign" History of total knee arthroplasty S/P tonsillectomy and adenoidectomy Family History Father Hypertension Diabetes Kidney disease Brother Hypertension Mother Heart disease Social History Smoking Status: Never smoker Hx Alcohol Use: No Hx Substance Use: No Preferred Language: Maori Communication Ability: Effective Copyman Required: No Beliefs That Will Affect Care: None Current Living Situation: Family Other Information That Helps Us Care for You: No Feels Safe at Home: Yes Safety Concerns: Feels Safe At This Time Assistive Devices: None Allergies Allergies Allergy/AdvReac Type Severity Reaction Status Date / Time Penicillins Allergy Intermediate throat Verified 01/29/23 10:41 tightness/nausea Home Meds Home Medications Medication Instructions Recorded Confirmed apixaban 5 mg tablet (Eliquis) 5 mg PO BID 02/06/21 02/27/23 aspirin 81 mg tablet,delayed 81 mg PO QAM 02/06/21 02/27/23 release atorvastatin 10 mg tablet 10 mg PO PM 02/06/21 02/27/23 lisinopril 10 mg tablet 10 mg PO QAM 02/06/21 02/27/23 multivitamin 1 tab PO QAM 02/06/21 02/27/23 Previous Rx's Medication Instructions Recorded metoprolol succinate 50 mg 50 mg PO BID #60 tabs 02/10/21 tablet,extended release 24 hr ondansetron 4 mg disintegrating 4 mg PO Q6H PRN nausea and 01/29/23 tablet vomiting #14 tabs Results & Data (ED) Vital Signs Vital Signs - 24 hr 02/27/23 01:51 02/27/23 01:56 02/27/23 01:56 Temperature 36.4 C L Temperature Source Oral Pulse Rate 88 Pulse Rate [Apical] Respiratory Rate 24 Respiratory Effort / Characteristics Spontaneous Short of Breath Short of Breath Respiratory Depth Normal Normal Respiratory Pattern Regular Blood Pressure 140/98 Blood Pressure [Left Arm] Blood Pressure Mean 112 Blood Pressure Mean [Left Arm] Blood Pressure Position Semi-fowlers Pulse Oximetry 84 L 84 L Oxygen Delivery Method Room Air Room Air Nasal Cannula Oxygen Flow Rate 0 Sepsis Recent Fever Within 48 Hours No Sepsis New/Unexplained Change in Mental Status N/A Sepsis Action Taken by Nursing No Action Required Oxygen Flow Rate - Titration 4 Pulse Oximetry Post Tiitration 92 02/27/23 02:03 02/27/23 01:54 02/27/23 02:19 Temperature Temperature Source Pulse Rate 81 Pulse Rate [Apical] 81 Respiratory Rate 22 Respiratory Effort / Characteristics Non-Labored Spontaneous Respiratory Depth Normal Respiratory Pattern Regular Blood Pressure Blood Pressure [Left Arm] 138/91 Blood Pressure Mean Blood Pressure Mean [Left Arm] 106 Blood Pressure Position Pulse Oximetry 92 93 Oxygen Delivery Method Nasal Cannula Nasal Cannula Oxygen Flow Rate 4 4 Sepsis Recent Fever Within 48 Hours Sepsis New/Unexplained Change in Mental Status Sepsis Action Taken by Nursing Oxygen Flow Rate - Titration Pulse Oximetry Post Tiitration 02/27/23 03:00 02/27/23 04:00 02/27/23 05:30 Temperature Temperature Source Pulse Rate Pulse Rate [Apical] 88 66 78 Respiratory Rate 20 18 16 Respiratory Effort / Characteristics Non-Labored Spontaneous Non-Labored Spontaneous Respiratory Depth Normal Normal Respiratory Pattern Regular Regular Blood Pressure Blood Pressure [Left Arm] 148/100 H 131/84 134/78 Blood Pressure Mean Blood Pressure Mean [Left Arm] 116 99 96 Blood Pressure Position Pulse Oximetry 94 94 94 Oxygen Delivery Method Nasal Cannula Nasal Cannula Nasal Cannula Oxygen Flow Rate 4 4 4 Sepsis Recent Fever Within 48 Hours Sepsis New/Unexplained Change in Mental Status Sepsis Action Taken by Nursing Oxygen Flow Rate - Titration Pulse Oximetry Post Tiitration 02/27/23 05:48 02/27/23 06:00 Temperature Temperature Source Pulse Rate 76 Pulse Rate [Apical] 92 H Respiratory Rate 20 Respiratory Effort / Characteristics Non-Labored Spontaneous Respiratory Depth Normal Respiratory Pattern Regular Blood Pressure Blood Pressure [Left Arm] 146/90 H Blood Pressure Mean Blood Pressure Mean [Left Arm] 108 Blood Pressure Position Pulse Oximetry 94 Oxygen Delivery Method Nasal Cannula Oxygen Flow Rate 4 Sepsis Recent Fever Within 48 Hours Sepsis New/Unexplained Change in Mental Status Sepsis Action Taken by Nursing Oxygen Flow Rate - Titration Pulse Oximetry Post Tiitration Laboratory Data 02/27/23 01:56 02/27/23 02:50 Lab Results 02/27/23 02/27/23 02/27/23 Range/Units 01:56 01:56 01:56 WBC 10.20 (4.8-10.8) K/ul RBC 4.86 (4.20-5.40) M/uL Hgb 14.6 (12.0-16.0) g/dl Hct 42.5 (37.0-47.0) % MCV 87.4 (80.0-100.0) fL MCH 30.0 (25.0-34.0) pg MCHC 34.4 (32.0-36.0) g/dL RDW Std Deviation 46.2 (36.4-46.3) fL RDW Coeff of Dl 14.6 H (11.5-14.5) % Plt Count 252 (130-400) K/uL MPV 10.5 (9.4-12.4) fL Immature Gran % (Auto) 0.3 % Neut % (Auto) 71.4 % Lymph % (Auto) 19.3 % [place] % (Auto) 6.3 % Eos % (Auto) 2.2 % Baso % (Auto) 0.5 % Neut # (Auto) 7.29 H (1.40-6.50) K/uL Lymph # (Auto) 1.97 (1.2-3.4) K/uL [place] # (Auto) 0.64 H (0.11-0.59) K/uL Eos # (Auto) 0.22 (0-0.50) K/uL Baso # (Auto) 0.05 (0-0.2) K/uL Immature Gran # (Auto) 0.03 (0.01-0.20) K/uL APTT (21.0-31.0) Seconds PTT Ratio ABG pH (7.35-7.45) ABG pCO2 (35-46) mmHg ABG pO2 (80-95) mmHg ABG HCO3 (19-24) mmol/L ABG O2 Saturation (90-95) % ABG Base Excess (-9-1.8) mEq/L Caleb Test (Pos) Oxygen Given Sodium 136 (136-145) mmol/L Potassium TNP Chloride 106 (98-107) mmol/L Carbon Dioxide 21 (21-32) mmol/L Anion Gap 9 (3-11) BUN 23 (6-23) mg/dl Creatinine 0.94 (0.6-1.2) mg/dl Est Cr Clr Drug Dosing 50.9 ml/min Est GFR ( Amer) 68.8 ml/min Est GFR (Non-Af Amer) 59.3 ml/min BUN/Creatinine Ratio 24.5 H (10-20) Glucose 139 H (70-99(Fasting)) mg/dl Estimat Average Glucose mg/dl Hemoglobin A1c (4.5-5.6) % Calcium 9.5 (8.6-10.3) mg/dl Magnesium 2.0 (1.7-2.4) mg/dl Total Bilirubin 1.1 H (0.2-1.0) mg/dl AST TNP ALT 17 (7-52) U/L Alkaline Phosphatase 74 (34-104) U/L Troponin I High Sens 12.9 (0-14) pg/ml B-Natriuretic Peptide 321 H (0-100) pg/ml Total Protein 7.9 (6.0-8.3) gm/dl Albumin 4.1 (3.4-5.0) gm/dl Globulin 3.8 (2.5-4.0) gm/dl Albumin/Globulin Ratio 1.1 (0.9-2) TSH (0.300-4.500) uIu/ml Urine Color Urine Appearance (Clear) Urine pH (4.5-7.5) Ur Specific [place]once (1.000-1.030) Urine Protein (Negative) Urine Glucose (UA) (Negative) Urine Ketones (Negative) Urine Blood (Negative) Urine Nitrite (Negative) Urine Bilirubin (Negative) Urine Urobilinogen (Negative) Ur Leukocyte Esterase (Negative) Urine WBC (Auto) (0-5) /hpf Urine RBC (Auto) (0-4) /hpf U Hyaline Cast (Auto) (0-5) /lpf U Epithel Cells (Auto) (0-5) /lpf Urine Bacteria (Auto) (Negative) SARS-CoV-2 (PCR) (Negative) Influenza Type A (PCR) (Neg) Influenza Type B (PCR) (Neg) RSV (RT-PCR) (Neg) 02/27/23 02/27/23 02/27/23 Range/Units 02:50 03:44 05:56 WBC (4.8-10.8) K/ul RBC (4.20-5.40) M/uL Hgb (12.0-16.0) g/dl Hct (37.0-47.0) % MCV (80.0-100.0) fL MCH (25.0-34.0) pg MCHC (32.0-36.0) g/dL RDW Std Deviation (36.4-46.3) fL RDW Coeff of Dl (11.5-14.5) % Plt Count (130-400) K/uL MPV (9.4-12.4) fL Immature Gran % (Auto) % Neut % (Auto) % Lymph % (Auto) % [place] % (Auto) % Eos % (Auto) % Baso % (Auto) % Neut # (Auto) (1.40-6.50) K/uL Lymph # (Auto) (1.2-3.4) K/uL [place] # (Auto) (0.11-0.59) K/uL Eos # (Auto) (0-0.50) K/uL Baso # (Auto) (0-0.2) K/uL Immature Gran # (Auto) (0.01-0.20) K/uL APTT (21.0-31.0) Seconds PTT Ratio ABG pH (7.35-7.45) ABG pCO2 (35-46) mmHg ABG pO2 (80-95) mmHg ABG HCO3 (19-24) mmol/L ABG O2 Saturation (90-95) % ABG Base Excess (-9-1.8) mEq/L Caleb Test (Pos) Oxygen Given Sodium (136-145) mmol/L Potassium 3.8 Chloride (98-107) mmol/L Carbon Dioxide (21-32) mmol/L Anion Gap (3-11) BUN (6-23) mg/dl Creatinine (0.6-1.2) mg/dl Est Cr Clr Drug Dosing ml/min Est GFR ( Amer) ml/min Est GFR (Non-Af Amer) ml/min BUN/Creatinine Ratio (10-20) Glucose (70-99(Fasting)) mg/dl Estimat Average Glucose mg/dl Hemoglobin A1c (4.5-5.6) % Calcium (8.6-10.3) mg/dl Magnesium (1.7-2.4) mg/dl Total Bilirubin (0.2-1.0) mg/dl AST 17 ALT (7-52) U/L Alkaline Phosphatase (34-104) U/L Troponin I High Sens (0-14) pg/ml B-Natriuretic Peptide (0-100) pg/ml Total Protein (6.0-8.3) gm/dl Albumin (3.4-5.0) gm/dl Globulin (2.5-4.0) gm/dl Albumin/Globulin Ratio (0.9-2) TSH 1.013 (0.300-4.500) uIu/ml Urine Color Urine Appearance (Clear) Urine pH (4.5-7.5) Ur Specific [place] (1.000-1.030) Urine Protein (Negative) Urine Glucose (UA) (Negative) Urine Ketones (Negative) Urine Blood (Negative) Urine Nitrite (Negative) Urine Bilirubin (Negative) Urine Urobilinogen (Negative) Ur Leukocyte Esterase (Negative) Urine WBC (Auto) (0-5) /hpf Urine RBC (Auto) (0-4) /hpf U Hyaline Cast (Auto) (0-5) /lpf U Epithel Cells (Auto) (0-5) /lpf Urine Bacteria (Auto) (Negative) SARS-CoV-2 (PCR) NEGATIVE (Negative) Influenza Type A (PCR) Negative (Neg) Influenza Type B (PCR) Negative (Neg) RSV (RT-PCR) Negative (Neg) 02/27/23 02/27/23 02/27/23 Range/Units 05:56 05:59 06:15 WBC (4.8-10.8) K/ul RBC (4.20-5.40) M/uL Hgb (12.0-16.0) g/dl Hct (37.0-47.0) % MCV (80.0-100.0) fL MCH (25.0-34.0) pg MCHC (32.0-36.0) g/dL RDW Std Deviation (36.4-46.3) fL RDW Coeff of Dl (11.5-14.5) % Plt Count (130-400) K/uL MPV (9.4-12.4) fL Immature Gran % (Auto) % Neut % (Auto) % Lymph % (Auto) % [place] % (Auto) % Eos % (Auto) % Baso % (Auto) % Neut # (Auto) (1.40-6.50) K/uL Lymph # (Auto) (1.2-3.4) K/uL [place] # (Auto) (0.11-0.59) K/uL Eos # (Auto) (0-0.50) K/uL Baso # (Auto) (0-0.2) K/uL Immature Gran # (Auto) (0.01-0.20) K/uL APTT 30.5 (21.0-31.0) Seconds PTT Ratio 1.1 ABG pH (7.35-7.45) ABG pCO2 (35-46) mmHg ABG pO2 (80-95) mmHg ABG HCO3 (19-24) mmol/L ABG O2 Saturation (90-95) % ABG Base Excess (-9-1.8) mEq/L Caleb Test (Pos) Oxygen Given Sodium (136-145) mmol/L Potassium Chloride (98-107) mmol/L Carbon Dioxide (21-32) mmol/L Anion Gap (3-11) BUN (6-23) mg/dl Creatinine (0.6-1.2) mg/dl Est Cr Clr Drug Dosing ml/min Est GFR ( Amer) ml/min Est GFR (Non-Af Amer) ml/min BUN/Creatinine Ratio (10-20) Glucose (70-99(Fasting)) mg/dl Estimat Average Glucose 117 mg/dl Hemoglobin A1c 5.7 H (4.5-5.6) % Calcium (8.6-10.3) mg/dl Magnesium (1.7-2.4) mg/dl Total Bilirubin (0.2-1.0) mg/dl AST ALT (7-52) U/L Alkaline Phosphatase (34-104) U/L Troponin I High Sens (0-14) pg/ml B-Natriuretic Peptide (0-100) pg/ml Total Protein (6.0-8.3) gm/dl Albumin (3.4-5.0) gm/dl Globulin (2.5-4.0) gm/dl Albumin/Globulin Ratio (0.9-2) TSH (0.300-4.500) uIu/ml Urine Color Yellow Urine Appearance Clear (Clear) Urine pH 6.0 (4.5-7.5) Ur Specific [place] 1.022 (1.000-1.030) Urine Protein Negative (Negative) Urine Glucose (UA) Negative (Negative) Urine Ketones Negative (Negative) Urine Blood Trace H (Negative) Urine Nitrite Negative (Negative) Urine Bilirubin Negative (Negative) Urine Urobilinogen Negative (Negative) Ur Leukocyte Esterase 2+ H (Negative) Urine WBC (Auto) 10-30 H (0-5) /hpf Urine RBC (Auto) 0-4 (0-4) /hpf U Hyaline Cast (Auto) 0 (0-5) /lpf U Epithel Cells (Auto) 20-30 H (0-5) /lpf Urine Bacteria (Auto) Negative (Negative) SARS-CoV-2 (PCR) (Negative) Influenza Type A (PCR) (Neg) Influenza Type B (PCR) (Neg) RSV (RT-PCR) (Neg) 02/27/23 Range/Units 06:25 WBC (4.8-10.8) K/ul RBC (4.20-5.40) M/uL Hgb (12.0-16.0) g/dl Hct (37.0-47.0) % MCV (80.0-100.0) fL MCH (25.0-34.0) pg MCHC (32.0-36.0) g/dL RDW Std Deviation (36.4-46.3) fL RDW Coeff of Dl (11.5-14.5) % Plt Count (130-400) K/uL MPV (9.4-12.4) fL Immature Gran % (Auto) % Neut % (Auto) % Lymph % (Auto) % [place] % (Auto) % Eos % (Auto) % Baso % (Auto) % Neut # (Auto) (1.40-6.50) K/uL Lymph # (Auto) (1.2-3.4) K/uL [place] # (Auto) (0.11-0.59) K/uL Eos # (Auto) (0-0.50) K/uL Baso # (Auto) (0-0.2) K/uL Immature Gran # (Auto) (0.01-0.20) K/uL APTT (21.0-31.0) Seconds PTT Ratio ABG pH 7.44 (7.35-7.45) ABG pCO2 33 L (35-46) mmHg ABG pO2 87 (80-95) mmHg ABG HCO3 22 (19-24) mmol/L ABG O2 Saturation 98.2 H (90-95) % ABG Base Excess -0.9 (-9-1.8) mEq/L Caleb Test Pos (Pos) Oxygen Given 4L Sodium (136-145) mmol/L Potassium Chloride (98-107) mmol/L Carbon Dioxide (21-32) mmol/L Anion Gap (3-11) BUN (6-23) mg/dl Creatinine (0.6-1.2) mg/dl Est Cr Clr Drug Dosing ml/min Est GFR ( Amer) ml/min Est GFR (Non-Af Amer) ml/min BUN/Creatinine Ratio (10-20) Glucose (70-99(Fasting)) mg/dl Estimat Average Glucose mg/dl Hemoglobin A1c (4.5-5.6) % Calcium (8.6-10.3) mg/dl Magnesium (1.7-2.4) mg/dl Total Bilirubin (0.2-1.0) mg/dl AST ALT (7-52) U/L Alkaline Phosphatase (34-104) U/L Troponin I High Sens (0-14) pg/ml B-Natriuretic Peptide (0-100) pg/ml Total Protein (6.0-8.3) gm/dl Albumin (3.4-5.0) gm/dl Globulin (2.5-4.0) gm/dl Albumin/Globulin Ratio (0.9-2) TSH (0.300-4.500) uIu/ml Urine Color Urine Appearance (Clear) Urine pH (4.5-7.5) Ur Specific [place] (1.000-1.030) Urine Protein (Negative) Urine Glucose (UA) (Negative) Urine Ketones (Negative) Urine Blood (Negative) Urine Nitrite (Negative) Urine Bilirubin (Negative) Urine Urobilinogen (Negative) Ur Leukocyte Esterase (Negative) Urine WBC (Auto) (0-5) /hpf Urine RBC (Auto) (0-4) /hpf U Hyaline Cast (Auto) (0-5) /lpf U Epithel Cells (Auto) (0-5) /lpf Urine Bacteria (Auto) (Negative) SARS-CoV-2 (PCR) (Negative) Influenza Type A (PCR) (Neg) Influenza Type B (PCR) (Neg) RSV (RT-PCR) (Neg) Administered Medications Apixaban (Apixaban 5 Mg Tablet) 5 mg PO BID [facility] Stop: 03/29/23 08:59 Last Admin: 02/27/23 12:25 Dose: 5 mg Documented By: EVANGELINA Aspirin (Aspirin 81 Mg Ectab) [facility] [place] Stop: 03/29/23 08:59 Last Admin: 02/27/23 12:25 Dose: 81 mg Documented By: EVANGELINA Lisinopril (Lisinopril 10 Mg Tab) [facility] [place] Stop: 03/29/23 08:59 Last Admin: 02/27/23 12:25 Dose: 10 mg Documented By: EVANGELINA Lorazepam (Lorazepam 0.5 Mg Tab) 0.25 mg PO TID PRN PRN Reason: Anxiety Stop: 03/29/23 06:36 Last Admin: 02/27/23 10:15 Dose: 0.25 mg Documented By: EVANGELINA Multivitamins (Multivitamin Tab) 1 [facility] [place] Stop: 03/29/23 08:59 Last Admin: 02/27/23 12:25 Dose: 1 tab Documented By: EVANGELINA Tramadol HCl (Tramadol Hcl 50 Mg Tablet) 25 mg PO Q4H PRN PRN Reason: Pain Stop: 03/29/23 06:36 Last Admin: 02/27/23 10:15 Dose: 25 mg Documented By: EVANGELINA Discontinued Medications Furosemide (Furosemide 40 Mg/4 Ml Vial) 40 mg IV ONE ONE Stop: 02/27/23 05:56 Last Admin: 02/27/23 07:28 Dose: 40 mg Documented By: DAPHNIE Ioversol (Optiray 320 100ml) 93 ml IV ONCE ONE Stop: 02/27/23 03:24 Last Admin: 02/27/23 03:21 Dose: 93 ml Documented By: BRGosia Ipratropium [place] (Ipratropium [place] Neb Soln 0.02% 2.5 Ml Vial) 0.5 mg INH NOW STA Stop: 02/27/23 06:33 Last Admin: 02/27/23 07:27 Dose: 0.5 mg Documented By: DAPHNIE Levalbuterol HCl (Levalbuterol 1.25 Mg/3 Ml Neb) 1.25 mg NEB NOW STA Stop: 02/27/23 06:34 Last Admin: 02/27/23 07:27 Dose: 1.25 mg Documented By: MMG Metoprolol Succinate (Metoprolol Succ 50mg Ext Rel Tab) 50 mg PO NOW STA Stop: 02/27/23 06:00 Last Admin: 02/27/23 07:28 Dose: 50 mg Documented By: MMG Potassium Chloride (Potassium Chloride Crtab 20 Meq Tabcr) 40 meq PO NOW STA Stop: 02/27/23 05:57 Last Admin: 02/27/23 07:28 Dose: 40 meq Documented By: MMG Imaging Data Radiologist's Impression: Chest X-Ray 02/27/23 02:11 XR chest 1V portable HISTORY: Dyspnea COMPARISON: Chest 01/29/2023. FINDINGS: Slightly rotated study. No pneumothorax. Small right and trace left pleural effusions have slightly progressed. The heart remains mildly enlarged. There is mild to moderate interstitial pulmonary edema which has also progressed. Bibasilar linear densities are nonspecific but favor subsegmental atelectasis. A pneumonia could also have a similar appearance. Lobular density within the right midlung zone likely represents fluid within the right major fissure. IMPRESSION: 1. Mild to moderate interstitial pulmonary edema and bilateral pleural effusio ns. 2. Cardiomegaly. 3. Bibasilar densities are nonspecific but favor atelectasis. A pneumonia could also have a similar appearance. ACT 112: Negative or not required by law. Electronically signed by: Rai Dumont M.D. 02/27/2023 8:[address] 02/27/23 02:52 Exam(s): CT CHEST With Contrast IV Amt: 93 ml EXAM: CT Chest With Intravenous Contrast CLINICAL HISTORY: Reason for exam: eval right lower lung. TECHNIQUE: Axial computed tomography images of the chest with intravenous contrast. CTDI is 27.11 mGy and DLP is 794.12 mGy-cm. Automated exposure control was utilized for the study. A dose lowering technique was utilized adhering to the principles of ALARA. CONTRAST: Patient received 93 ml of IV contrast COMPARISON: CT abdomen pelvis 01/29/2023 FINDINGS: Lungs: Interstitial edema. Atelectasis at the right lung base. Pleural space: Small pleural effusions right greater than left. Loculated fluid along the right minor fissure. Heart: Cardiomegaly. Mediastinum: Mildly prominent mediastinal lymph nodes favored reactive. Bones/joints: No acute findings. Soft tissues: Unremarkable. Vasculature: No visualized pulmonary embolism. Lymph nodes: Unremarkable. IMPRESSION: 1. Cardiomegaly. 2. Interstitial edema. 3. Small pleural effusions right greater than left. Electronically signed by: Wesley Rothman MD 02/27/23 05:37 AM Discharge Plan Visit Data Chief Complaint: Shortness of Breath/Dyspnea Stated Complaint: SOB, Afib RVR ED Provider: Melissa Paige Discharge Problem: Hypoxia, Acute dyspnea, Atrial fibrillation with rapid ventricular response Patient Disposition: Admitted As Inpatient Discharge Instructions Interventions: ED Discharge Assessment Last Done: 02/27/23 08:00
[2023-02-27 02:21] LABS: Basophils # (auto) 0.05 K/uL (0-0.2); Basophils % (auto) 0.5 %; Eosinophils # (auto) 0.22 K/uL (0-0.50); Eosinophils % (auto) 2.2 %; Hematocrit (blood only) 42.5 % (37.0-47.0); Hemoglobin 14.6 g/dl (12.0-16.0); Immature Granulocytes # (auto) 0.03 K/uL (0.01-0.20); Immature Granulocytes % (auto) 0.3 %; Lymphocytes # (auto) 1.97 K/uL (1.2-3.4); Lymphocytes % (auto) 19.3 %; Mean Corpuscular Hgb Conc 34.4 g/dL (32.0-36.0); Mean Corpuscular Volume 87.4 fL (80.0-100.0); Mean Platelet Volume 10.5 fL (9.4-12.4); Monocytes # (auto) 0.64 K/uL (0.11-0.59); Monocytes % (auto) 6.3 %; Neutrophils # (auto) 7.29 K/uL (1.40-6.50); Neutrophils % (auto) 71.4 %; Platelet Count 252 K/uL (130-400); RDW Coefficient of Variation 14.6 % (11.5-14.5); RDW Standard Deviation 46.2 fL (36.4-46.3); Red Blood Count 4.86 M/uL (4.20-5.40)
[2023-02-27 02:38] LABS: Alanine Aminotransferase 17 U/L (7-52); Albumin Globulin Ratio 1.1 (0.9-2); Albumin Level 4.1 gm/dl (3.4-5.0); Alkaline Phosphatase 74 U/L (34-104); Anion Gap 9 (3-11); BUN Creatinine Ratio 24.5 (10-20); Bilirubin,Total 1.1 mg/dl (0.2-1.0); Blood Urea Nitrogen 23 mg/dl (6-23); Calcium 9.5 mg/dl (8.6-10.3); Carbon Dioxide 21 mmol/L (21-32); Chloride 106 mmol/L (98-107); Creatinine Clr Calc Pharmacy 50.9 ml/min; Est GFR (African American) 68.8 ml/min; Est GFR (Non-African American) 59.3 ml/min; Globulin 3.8 gm/dl (2.5-4.0); Glucose 139 mg/dl (70-99(Fasting)); Sodium 136 mmol/L (136-145); Total Protein 7.9 gm/dl (6.0-8.3); Troponin I High Sensitivity 12.9 pg/ml (0-14)
[2023-02-27 03:21] LABS: Potassium 3.8 mmol/L (3.5-5.1)
[2023-02-27] MEDS ORDERED: OPTIRAY 320 100ml IV ONE (03:23)
[2023-02-27 04:31] LABS: Influenza A virus by PCR Negative (Neg); Influenza B virus by PCR Negative (Neg); RSV by PCR Negative (Neg); SARS CoV2 RNA(COVID-19) Ceph NEGATIVE (Negative)
--- NOTE | 2023-02-27 05:38 | CT Scan Report ---
Exam(s): CT CHEST With Contrast IV Amt: 93 ml EXAM: CT Chest With Intravenous Contrast CLINICAL HISTORY: Reason for exam: eval right lower lung. TECHNIQUE: Axial computed tomography images of the chest with intravenous contrast. CTDI is 27.11 mGy and DLP is 794.12 mGy-cm. Automated exposure control was utilized for the study. A dose lowering technique was utilized adhering to the principles of ALARA. CONTRAST: Patient received 93 ml of IV contrast COMPARISON: CT abdomen pelvis 01/29/2023 FINDINGS: Lungs: Interstitial edema. Atelectasis at the right lung base. Pleural space: Small pleural effusions right greater than left. Loculated fluid along the right minor fissure. Heart: Cardiomegaly. Mediastinum: Mildly prominent mediastinal lymph nodes favored reactive. Bones/joints: No acute findings. Soft tissues: Unremarkable. Vasculature: No visualized pulmonary embolism. Lymph nodes: Unremarkable. IMPRESSION: 1. Cardiomegaly. 2. Interstitial edema. 3. Small pleural effusions right greater than left. Electronically signed by: Wesley Rothman MD 02/27/23 05:37 AM
[2023-02-27] MEDS ORDERED: FUROSEMIDE 40 MG/4 ML VIAL IV ONE ×2 (05:55→17:00)
[2023-02-27] MEDS ORDERED: POTASSIUM CHLORIDE CRTAB 20 MEQ TABCR PO STA (05:56)
[2023-02-27] MEDS ORDERED: METOPROLOL SUCC 50MG EXT REL TAB PO STA (05:59)
[2023-02-27 06:24] LABS: Appearance Urine Clear (Clear); Bacteria Urine Automated Negative (Negative); Bilirubin Urine Negative (Negative); Blood Urine Trace (Negative); Cast Urine Automated 0 /lpf (0-5); Color Urine Yellow; Epithelial Cell Urine Auto 20-30 /lpf (0-5); Glucose Urine UA Negative (Negative); Ketones Urine Negative (Negative); Leukocyte Esterase Urine 2+ (Negative); Nitrite Urine Negative (Negative); Protein Urine Negative (Negative); RBC Urine Automated 0-4 /hpf (0-4); Specific Gravity Urine 1.022 (1.000-1.030); Urobilinogen Urine Negative (Negative)
[2023-02-27] MEDS ORDERED: XOPENEX/ATROVENT 1.25mg/0.5MG NEB COMBO NEB STA (06:25)
--- NOTE | 2023-02-27 06:28 | History & Physical Report ---
Date of Service February 27, 2023 Assessment & Plan (1) Acute hypoxemic respiratory failure: Plan: Secondary to acute CHF Rule out progression of valvular heart disease (moderate AR/MR, mild TR) Rapid A-fib secondary to above Improved rate post EMS intervention Patient on Eliquis Chronic LBBB Hyperlipidemia on statin Rx Hyperglycemia rule out DM PCU supplemental O2 Baseline ABG Diuretic Rx Strict I/Os, daily weights, CHF education TTE, cardiology Consult Re: Acute CHF Check hemoglobin A1c DVT prophylaxis. Eliquis Full code Patient daughter requesting updates from providers. Ms. Do Lopez, contact #[phone]. Total critical care time was 40 minutes. Text document was generated using [employer] voice recognition software. It may contain grammatical or spelling errors. Kindly contact undersigned for clarification of any documentation item in question. History of Present Illness Chief Complaint: Shortness of breath Primary Care Provider: Gemma Garsia, History obtained from patient, family, and records. Medical history significant for A-fib on Eliquis, chronic LBBB, valvular heart disease (moderate AR/MR, mild TR), pulmonary hypertension, hypertension, hyperlipidemia. Last confinement January 2021 for A-fib with RVR in the setting of Lyme disease. Recent ER visit last month for diverticulitis presenting as hematochezia. Patient completed outpatient antibiotic course. Did not have to stop Eliquis. Last few days, patient noted shortness of breath worse with exertion with occasional flip-flopping sensation of the heart. No chest pain. Patient compliant with home medications. Patient thinks she lost weight after diverticulitis episode from last month but has gained some back. No unusual stress at home. Patient woke up around midnight with shortness of breath. Patient noted to be in rapid A-fib upon EMS arrival, heart rate 100-1 50s. O2 sats 88 on room air. IV Cardizem bolus administered prior to ER arrival. 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 Allergies Allergy/AdvReac Type Severity Reaction Status Date / Time Penicillins Allergy Intermediate throat Verified 01/29/23 10:41 tightness/nausea Home Medications Medication Instructions Recorded Confirmed Type apixaban 5 mg tablet (Eliquis) 5 mg PO BID 02/06/21 02/27/23 History aspirin 81 mg tablet,delayed 81 mg PO QAM 02/06/21 02/27/23 History release atorvastatin 10 mg tablet 10 mg PO PM 02/06/21 02/27/23 History lisinopril 10 mg tablet 10 mg PO QAM 02/06/21 02/27/23 History multivitamin 1 tab PO QAM 02/06/21 02/27/23 History metoprolol succinate 50 mg 50 mg PO BID #60 tabs 02/10/21 02/27/23 Rx tablet,extended release 24 hr ondansetron 4 mg disintegrating 4 mg PO Q6H PRN nausea and 01/29/23 02/27/23 Rx tablet vomiting #14 tabs Past Med/Surg History Medical History 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 " Dyslipidemia Hypertension Hyperthyroidism LBBB (left bundle branch block) Left knee DJD LVH (left ventricular hypertrophy) due to hypertensive disease Right knee DJD Silent thyroiditis Surgical History H/O breast surgery " L breast, benign" History of total knee arthroplasty S/P tonsillectomy and adenoidectomy Family History Father Hypertension Diabetes Kidney disease Brother Hypertension Mother Heart disease Social History Smoking Status: Never smoker Hx Alcohol Use: No Hx Substance Use: No Preferred Language: Macanese Communication Ability: Effective Owner 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 Required: No Beliefs That Will Affect Care: None Current Living Situation: Family Other Information That Helps Us Care for You: No Feels Safe at Home: Yes Safety Concerns: Feels Safe At This Time Assistive Devices: None Review of Systems Review of Systems: As per HPI, all other systems reviewed and negative Physical Exam Physical Exam: GENERAL: Comfortable, slightly anxious, obese, pleasant, minimal respiratory distress SKIN: Normal color, warm HEENT: [place] palpebral conjunctivae, no ptosis, moist buccal mucosa, nasal cannula in place NECK : Supple, distended neck veins, no tenderness CHEST : Decreased breath sounds, no tenderness HEART : Irregular, systolic murmur ABDOMEN: Some distention, nontender EXTREMITIES : Minimal LE swelling, no LE tenderness, no other conspicuous deformities noted NEUROLOGIC : Coherent, no facial asymmetry, no other gross focality Results & Data Results & Data Vital Signs (Past 12 Hours) Vital Signs Temp Pulse Pulse Resp BP BP Pulse Ox 02/27/23 06:00 92 H 20 146/90 H 94 02/27/23 05:48 76 02/27/23 05:30 78 16 134/78 94 02/27/23 04:00 66 18 131/84 94 02/27/23 03:00 88 20 148/100 H 94 02/27/23 02:19 93 02/27/23 01:54 81 02/27/23 02:03 81 22 138/91 92 02/27/23 01:56 84 L 02/27/23 01:51 36.4 C L 88 24 140/98 84 L O2 Del Method O2 Flow Rate 02/27/23 06:00 Nasal Cannula 4 02/27/23 05:48 02/27/23 05:30 Nasal Cannula 4 02/27/23 04:00 Nasal Cannula 4 02/27/23 03:00 Nasal Cannula 4 02/27/23 02:19 Nasal Cannula 4 02/27/23 01:54 02/27/23 02:03 Nasal Cannula 4 02/27/23 01:56 Room Air, Nasal Cannula 0 02/27/23 01:51 Room Air Laboratory Results Laboratory Results WBC 10.20 K/ul (4.8-10.8) 02/27/23 01:56 RBC 4.86 M/uL (4.20-5.40) 02/27/23 01:56 Hgb 14.6 g/dl (12.0-16.0) 02/27/23 01:56 Hct 42.5 % (37.0-47.0) 02/27/23 01:56 MCV 87.4 fL (80.0-100.0) 02/27/23 01:56 MCH 30.0 pg (25.0-34.0) 02/27/23 01:56 MCHC 34.4 g/dL (32.0-36.0) 02/27/23 01:56 RDW Std Deviation 46.2 fL (36.4-46.3) 02/27/23 01:56 RDW Coeff of Dl 14.6 % (11.5-14.5) H 02/27/23 01:56 Plt Count 252 K/uL (130-400) 02/27/23 01:56 MPV 10.5 fL (9.4-12.4) 02/27/23 01:56 Immature Gran % (Auto) 0.3 % 02/27/23 01:56 Neut % (Auto) 71.4 % 02/27/23 01:56 Lymph % (Auto) 19.3 % 02/27/23 01:56 [place] % (Auto) 6.3 % 02/27/23 01:56 Eos % (Auto) 2.2 % 02/27/23 01:56 Baso % (Auto) 0.5 % 02/27/23 01:56 Neut # (Auto) 7.29 K/uL (1.40-6.50) H 02/27/23 01:56 Lymph # (Auto) 1.97 K/uL (1.2-3.4) 02/27/23 01:56 [place] # (Auto) 0.64 K/uL (0.11-0.59) H 02/27/23 01:56 Eos # (Auto) 0.22 K/uL (0-0.50) 02/27/23 01:56 Baso # (Auto) 0.05 K/uL (0-0.2) 02/27/23 01:56 Immature Gran # (Auto) 0.03 K/uL (0.01-0.20) 02/27/23 01:56 Sodium 136 mmol/L (136-145) 02/27/23 01:56 Potassium 3.8 mmol/L (3.5-5.1) 02/27/23 02:50 Chloride 106 mmol/L (98-107) 02/27/23 01:56 Carbon Dioxide 21 mmol/L (21-32) 02/27/23 01:56 Anion Gap 9 (3-11) 02/27/23 01:56 BUN 23 mg/dl (6-23) 02/27/23 01:56 Creatinine 0.94 mg/dl (0.6-1.2) 02/27/23 01:56 Est Cr Clr Drug Dosing 50.9 ml/min 02/27/23 01:56 Est GFR ( Amer) 68.8 ml/min 02/27/23 01:56 Est GFR (Non-Af Amer) 59.3 ml/min 02/27/23 01:56 BUN/Creatinine Ratio 24.5 (10-20) H 02/27/23 01:56 Glucose 139 mg/dl (70-99(Fasting)) H 02/27/23 01:56 Calcium 9.5 mg/dl (8.6-10.3) 02/27/23 01:56 Magnesium 2.0 mg/dl (1.7-2.4) 02/27/23 01:56 Total Bilirubin 1.1 mg/dl (0.2-1.0) H 02/27/23 01:56 AST 17 U/L (13-39) 02/27/23 02:50 ALT 17 U/L (7-52) 02/27/23 01:56 Alkaline Phosphatase 74 U/L (34-104) 02/27/23 01:56 Troponin I High Sens 12.9 pg/ml (0-14) 02/27/23 01:56 B-Natriuretic Peptide 321 pg/ml (0-100) H 02/27/23 01:56 Total Protein 7.9 gm/dl (6.0-8.3) 02/27/23 01:56 Albumin 4.1 gm/dl (3.4-5.0) 02/27/23 01:56 Globulin 3.8 gm/dl (2.5-4.0) 02/27/23 01:56 Albumin/Globulin Ratio 1.1 (0.9-2) 02/27/23 01:56 SARS-CoV-2 (PCR) NEGATIVE (Negative) 02/27/23 03:44 Influenza Type A (PCR) Negative (Neg) 02/27/23 03:44 Influenza Type B (PCR) Negative (Neg) 02/27/23 03:44 RSV (RT-PCR) Negative (Neg) 02/27/23 03:[address] 02/27/23 02:52 Exam(s): CT CHEST With Contrast IV Amt: 93 ml EXAM: CT Chest With Intravenous Contrast CLINICAL HISTORY: Reason for exam: eval right lower lung. TECHNIQUE: Axial computed tomography images of the chest with intravenous contrast. CTDI is 27.11 mGy and DLP is 794.12 mGy-cm. Automated exposure control was utilized for the study. A dose lowering technique was utilized adhering to the principles of ALARA. CONTRAST: Patient received 93 ml of IV contrast COMPARISON: CT abdomen pelvis 01/29/2023 FINDINGS: Lungs: Interstitial edema. Atelectasis at the right lung base. Pleural space: Small pleural effusions right greater than left. Loculated fluid along the right minor fissure. Heart: Cardiomegaly. Mediastinum: Mildly prominent mediastinal lymph nodes favored reactive. Bones/joints: No acute findings. Soft tissues: Unremarkable. Vasculature: No visualized pulmonary embolism. Lymph nodes: Unremarkable. IMPRESSION: 1. Cardiomegaly. 2. Interstitial edema. 3. Small pleural effusions right greater than left. Electronically signed by: Wesley Rothman MD 02/27/23 05:37 AM Diagnostic Findings EKG as per my interpretation :Rate 70, A-fib, LAD, LAFB, LBBB, septal infarct
[2023-02-27] MEDS ORDERED: IPRATROPIUM BROMIDE NEB SOLN 0.02% 2.5 ML VIAL INH STA (06:32)
[2023-02-27] MEDS ORDERED: LEVALBUTEROL 1.25 MG/3 ML NEB NEB STA (06:33)
[2023-02-27] MEDS ORDERED: PROMETHAZINE HCL 12.5 MG in SODIUM CHLORIDE 0.9% 50 ML IV PRN (06:37)
[2023-02-27] MEDS ORDERED: LORazepam 0.5 MG TAB PO PRN (06:37)
[2023-02-27 07:17] LABS: Base Excess ABG -0.9 mEq/L (-9-1.8); HCO3 ABG 22 mmol/L (19-24); Oxygen Saturation ABG 98.2 % (90-95); PCO2 ABG 33 mmHg (35-46); PO2 ABG 87 mmHg (80-95); pH ABG 7.44 (7.35-7.45)
[2023-02-27 07:29] LABS: Estimated Average Glucose 117 mg/dl; Hemoglobin A1C 5.7 % (4.5-5.6)
[2023-02-27 07:40] LABS: Partial Thromboplastin Ratio 1.1; Partial Thromboplastin Time 30.5 Seconds (21.0-31.0)
[2023-02-27 07:43] LABS: Allen Test Pos (Pos)
--- NOTE | 2023-02-27 08:36 | XRay Report ---
XR chest 1V portable HISTORY: Dyspnea COMPARISON: Chest 01/29/2023. FINDINGS: Slightly rotated study. No pneumothorax. Small right and trace left pleural effusions have slightly progressed. The heart remains mildly enlarged. There is mild to moderate interstitial pulmon diane edema which has also progressed. Bibasilar linear densities are nonspecific but favor subsegmenta l atelectasis. A pneumonia could also have a similar appearance. Lobular density within the right mid lung zone likely represents fluid within the right major fissure. IMPRESSION: 1. Mild to moderate interstitial pulmonary edema and bilateral pleural effusions. 2. Cardiomegaly. 3. Bibasilar densities are nonspecific but favor atelectasis. A pneumonia could also have a similar a ppearance. ACT 112: Negative or not required by law. Electronically signed by: Rai Dumont M.D. 02/27/2023 8:35 AM
[2023-02-27] MEDS ORDERED: ACETAMINOPHEN 325 MG TAB PO PRN (08:57)
[2023-02-27] MEDS: traMADol HCL 50 MG TABLET PO PRN ×2 (10:15→20:03)
[2023-02-27] MEDS: APIXABAN 5 MG TABLET PO SCH ×2 (12:25→20:09)
[2023-02-27] MEDS: lisinopril 10 MG TAB PO SCH (12:25)
[2023-02-27] MEDS: ASPIRIN 81 MG ECTAB PO SCH (12:25)
[2023-02-27] MEDS: MULTIVITAMIN TAB PO SCH (12:25)
--- NOTE | 2023-02-27 12:44 | Cardiology Consultation ---
Date of Consultation February 27, 2023 Assessment & Plan (1) Acute hypoxemic respiratory failure: (2) Acute systolic heart failure: (3) Persistent atrial fibrillation: (4) LBBB (left bundle branch block): (5) Mitral regurgitation: Plan 77-year-old female presents with acute dyspnea and signs and symptoms of systolic heart failure with mild to moderate LV dysfunction and moderate to severe mitral insufficiency on echocardiogram. Troponins not consistent with acute myocardial injury. Chronic atrial fibrillation and left bundle branch block on EKG with controlled ventricular response rate Patient is responding to IV diuretics. Chest x-ray with pulmonary edema as well as possible infiltrate right base versus effusion Plan: Patient scheduled for second dose of IV furosemide today We will add topical nitrates for blood pressure control and preload reduction Repeat chest x-ray in a.m. Continue apixaban for now May need to hold if any procedures anticipated Patient clinically responding Cardiology will follow History of Present Illness Reason for Consultation: Congestive heart failure Requesting Physician: Dr. Meyer Attending Physician: Radha Meyer MD History of Present Illness Patient is a 77-year-old female cardiac concerns of 1. Persistent atrial fibrillation long-term 2. Chronic left bundle branch block, greater than 8 years duration 3. Hypertensive heart disease Patient presents now noting several days history of increasing dyspnea, wheezing at night culminating in acute dyspnea and presentation to ER for evaluation last night. Patient found to be in congestive heart failure. Recent history notable for acute stressors with association of passing away and in December. Sought ER evaluation for acute weakness and treated for possible pneumonitis with azithromycin. Hospital ER visit for possible acute diverticulitis rectal bleeding January 2023 also treated with antibiotic therapy, Cipro, metronidazole She denies any chest pains, tachypalpitations, syncope or near syncope. Blood pressures elevated on presentation. Has initially responded to IV diuretics with greater than 2 L diuresis with single dose No fevers or chills currently. No overt bleeding. Taking medications as prescribed. Allergies Allergy/AdvReac Type Severity Reaction Status Date / Time Penicillins Allergy Intermediate throat Verified 01/29/23 10:41 tightness/nausea Home Medications Medication Instructions Recorded Confirmed Type apixaban 5 mg tablet (Eliquis) 5 mg PO BID 02/06/21 02/27/23 History aspirin 81 mg tablet,delayed 81 mg PO QAM 02/06/21 02/27/23 History release atorvastatin 10 mg tablet 10 mg PO PM 02/06/21 02/27/23 History lisinopril 10 mg tablet 10 mg PO QAM 02/06/21 02/27/23 History multivitamin 1 tab PO QAM 02/06/21 02/27/23 History metoprolol succinate 50 mg 50 mg PO BID #60 tabs 02/10/21 02/27/23 Rx tablet,extended release 24 hr ondansetron 4 mg disintegrating 4 mg PO Q6H PRN nausea and 01/29/23 02/27/23 Rx tablet vomiting #14 tabs Patient History Medical History 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 " Dyslipidemia Hypertension Hyperthyroidism LBBB (left bundle branch block) Left knee DJD LVH (left ventricular hypertrophy) due to hypertensive disease Right knee DJD Silent thyroiditis Surgical History H/O breast surgery " L breast, benign" History of total knee arthroplasty S/P tonsillectomy and adenoidectomy Family History Father Hypertension Diabetes Kidney disease Brother Hypertension Mother Heart disease Social History Smoking Status: Never smoker Hx Alcohol Use: No Hx Substance Use: No Preferred Language: Citizen Of [place] Communication Ability: Effective Clinical Documentation Clerk Required: No Beliefs That Will Affect Care: None Current Living Situation: Family Other Information That Helps Us Care for You: No Feels Safe at Home: Yes Safety Concerns: Feels Safe At This Time Assistive Devices: None Review of Systems Review of Systems: All systems reviewed & are unremarkable except as noted in HPI & below Physical Exam Constitutional: WD/WN, vitals as above no acute distress Eyes: PERRL, conjunctivae normal, anicteric sclerae ENMT: external ear and nose normal, oropharynx normal Neck: trachea midline, no thyromegaly Respiratory: Auscultation: + diminished lung sounds and + rales Cardiovascular: Rate/Rhythm: regular rate and regular rhythm Heart Sounds: normal S1, normal S2 and + murmur (Grade 2/6 systolic) Vessels: + JVD Extremities: no edema Gastrointestinal (Abdomen): normal bowel sounds, soft, nontender, no hepatosplenomegaly Musculoskeletal: no cyanosis or clubbing, extremities motor strength 5/5 Results & Data Vital Signs (Past 12 Hours) Vital Signs Temp Pulse Pulse Resp BP BP Pulse Ox 02/27/23 10:24 36.4 C L 86 16 156/94 H 93 02/27/23 09:02 02/27/23 09:02 36.9 C 88 18 159/88 H 95 02/27/23 07:26 79 24 134/95 96 02/27/23 06:00 92 H 20 146/90 H 94 02/27/23 05:48 76 02/27/23 05:30 78 16 134/78 94 02/27/23 04:00 66 18 131/84 94 02/27/23 03:00 88 20 148/100 H 94 02/27/23 02:19 93 02/27/23 01:54 81 02/27/23 02:03 81 22 138/91 92 02/27/23 01:56 84 L 02/27/23 01:51 36.4 C L 88 24 140/98 84 L O2 Del Method O2 Flow Rate 02/27/23 10:24 Nasal Cannula 4 02/27/23 09:02 Nasal Cannula 3 02/27/23 09:02 Nasal Cannula 3 02/27/23 07:26 Nasal Cannula 4 02/27/23 06:00 Nasal Cannula 4 02/27/23 05:48 02/27/23 05:30 Nasal Cannula 4 02/27/23 04:00 Nasal Cannula 4 02/27/23 03:00 Nasal Cannula 4 02/27/23 02:19 Nasal Cannula 4 02/27/23 01:54 02/27/23 02:03 Nasal Cannula 4 02/27/23 01:56 Room Air, Nasal Cannula 0 02/27/23 01:51 Room Air Laboratory Results Laboratory Results - last 24 hr 02/27/23 02/27/23 02/27/23 01:56 01:56 01:56 WBC 10.20 RBC 4.86 Hgb 14.6 Hct 42.5 MCV 87.4 MCH 30.0 MCHC 34.4 RDW Std Deviation 46.2 RDW Coeff of Dl 14.6 H Plt Count 252 MPV 10.5 Immature Gran % (Auto) 0.3 Neut % (Auto) 71.4 Lymph % (Auto) 19.3 [place] % (Auto) 6.3 Eos % (Auto) 2.2 Baso % (Auto) 0.5 Neut # (Auto) 7.29 H Lymph # (Auto) 1.97 [place] # (Auto) 0.64 H Eos # (Auto) 0.22 Baso # (Auto) 0.05 Immature Gran # (Auto) 0.03 APTT PTT Ratio ABG pH ABG pCO2 ABG pO2 ABG HCO3 ABG O2 Saturation ABG Base Excess Caleb Test Oxygen Given Sodium 136 Potassium TNP Chloride 106 Carbon Dioxide 21 Anion Gap 9 BUN 23 Creatinine 0.94 Est Cr Clr Drug Dosing 50.9 Est GFR ( Amer) 68.8 Est GFR (Non-Af Amer) 59.3 BUN/Creatinine Ratio 24.5 H Glucose 139 H Estimat Average Glucose Hemoglobin A1c Calcium 9.5 Magnesium 2.0 Total Bilirubin 1.1 H AST TNP ALT 17 Alkaline Phosphatase 74 Troponin I High Sens 12.9 B-Natriuretic Peptide 321 H Total Protein 7.9 Albumin 4.1 Globulin 3.8 Albumin/Globulin Ratio 1.1 TSH Urine Color Urine Appearance Urine pH Ur Specific [place] Urine Protein Urine Glucose (UA) Urine Ketones Urine Blood Urine Nitrite Urine Bilirubin Urine Urobilinogen Ur Leukocyte Esterase Urine WBC (Auto) Urine RBC (Auto) U Hyaline Cast (Auto) U Epithel Cells (Auto) Urine Bacteria (Auto) SARS-CoV-2 (PCR) Influenza Type A (PCR) Influenza Type B (PCR) RSV (RT-PCR) 02/27/23 02/27/23 02/27/23 02:50 03:44 05:56 WBC RBC Hgb Hct MCV MCH MCHC RDW Std Deviation RDW Coeff of Dl Plt Count MPV Immature Gran % (Auto) Neut % (Auto) Lymph % (Auto) [place] % (Auto) Eos % (Auto) Baso % (Auto) Neut # (Auto) Lymph # (Auto) [place] # (Auto) Eos # (Auto) Baso # (Auto) Immature Gran # (Auto) APTT PTT Ratio ABG pH ABG pCO2 ABG pO2 ABG HCO3 ABG O2 Saturation ABG Base Excess Caleb Test Oxygen Given Sodium Potassium 3.8 Chloride Carbon Dioxide Anion Gap BUN Creatinine Est Cr Clr Drug Dosing Est GFR ( Amer) Est GFR (Non-Af Amer) BUN/Creatinine Ratio Glucose Estimat Average Glucose Hemoglobin A1c Calcium Magnesium Total Bilirubin AST 17 ALT Alkaline Phosphatase Troponin I High Sens B-Natriuretic Peptide Total Protein Albumin Globulin Albumin/Globulin Ratio TSH 1.013 Urine Color Urine Appearance Urine pH Ur Specific [place] Urine Protein Urine Glucose (UA) Urine Ketones Urine Blood Urine Nitrite Urine Bilirubin Urine Urobilinogen Ur Leukocyte Esterase Urine WBC (Auto) Urine RBC (Auto) U Hyaline Cast (Auto) U Epithel Cells (Auto) Urine Bacteria (Auto) SARS-CoV-2 (PCR) NEGATIVE Influenza Type A (PCR) Negative Influenza Type B (PCR) Negative RSV (RT-PCR) Negative 02/27/23 02/27/23 02/27/23 05:56 05:59 06:15 WBC RBC Hgb Hct MCV MCH MCHC RDW Std Deviation RDW Coeff of Dl Plt Count MPV Immature Gran % (Auto) Neut % (Auto) Lymph % (Auto) [place] % (Auto) Eos % (Auto) Baso % (Auto) Neut # (Auto) Lymph # (Auto) [place] # (Auto) Eos # (Auto) Baso # (Auto) Immature Gran # (Auto) APTT 30.5 PTT Ratio 1.1 ABG pH ABG pCO2 ABG pO2 ABG HCO3 ABG O2 Saturation ABG Base Excess Caleb Test Oxygen Given Sodium Potassium Chloride Carbon Dioxide Anion Gap BUN Creatinine Est Cr Clr Drug Dosing Est GFR ( Amer) Est GFR (Non-Af Amer) BUN/Creatinine Ratio Glucose Estimat Average Glucose 117 Hemoglobin A1c 5.7 H Calcium Magnesium Total Bilirubin AST ALT Alkaline Phosphatase Troponin I High Sens B-Natriuretic Peptide Total Protein Albumin Globulin Albumin/Globulin Ratio TSH Urine Color Yellow Urine Appearance Clear Urine pH 6.0 Ur Specific [place] 1.022 Urine Protein Negative Urine Glucose (UA) Negative Urine Ketones Negative Urine Blood Trace H Urine Nitrite Negative Urine Bilirubin Negative Urine Urobilinogen Negative Ur Leukocyte Esterase 2+ H Urine WBC (Auto) 10-30 H Urine RBC (Auto) 0-4 U Hyaline Cast (Auto) 0 U Epithel Cells (Auto) 20-30 H Urine Bacteria (Auto) Negative SARS-CoV-2 (PCR) Influenza Type A (PCR) Influenza Type B (PCR) RSV (RT-PCR) 02/27/23 06:25 WBC RBC Hgb Hct MCV MCH MCHC RDW Std Deviation RDW Coeff of Dl Plt Count MPV Immature Gran % (Auto) Neut % (Auto) Lymph % (Auto) [place] % (Auto) Eos % (Auto) Baso % (Auto) Neut # (Auto) Lymph # (Auto) [place] # (Auto) Eos # (Auto) Baso # (Auto) Immature Gran # (Auto) APTT PTT Ratio ABG pH 7.44 ABG pCO2 33 L ABG pO2 87 ABG HCO3 22 ABG O2 Saturation 98.2 H ABG Base Excess -0.9 Caleb Test Pos Oxygen Given 4L Sodium Potassium Chloride Carbon Dioxide Anion Gap BUN Creatinine Est Cr Clr Drug Dosing Est GFR ( Amer) Est GFR (Non-Af Amer) BUN/Creatinine Ratio Glucose Estimat Average Glucose Hemoglobin A1c Calcium Magnesium Total Bilirubin AST ALT Alkaline Phosphatase Troponin I High Sens B-Natriuretic Peptide Total Protein Albumin Globulin Albumin/Globulin Ratio TSH Urine Color Urine Appearance Urine pH Ur Specific [place] Urine Protein Urine Glucose (UA) Urine Ketones Urine Blood Urine Nitrite Urine Bilirubin Urine Urobilinogen Ur Leukocyte Esterase Urine WBC (Auto) Urine RBC (Auto) U Hyaline Cast (Auto) U Epithel Cells (Auto) Urine Bacteria (Auto) SARS-CoV-2 (PCR) Influenza Type A (PCR) Influenza Type B (PCR) RSV (RT-PCR) Diagnostic Findings Echocardiogram 02/27/2023 Normal left ventricular size with moderate hypertrophy Septal wall motion consistent with left bundle branch block, mild diffuse hypokinesis EF 40-45% Moderate to severe mitral insufficiency, moderate tricuspid insufficiency, moderate elevation pulmonary pressures ECG Additional Comments: EKG 02/27/2023 Atrial fibrillation at 77 bpm with left bundle branch block
--- NOTE | 2023-02-27 14:14 | Electrocardiogram Report ---
Test Reason : Blood Pressure : / mmHG Vent. Rate : 077 BPM Atrial Rate : 000 BPM P-R Int : 000 ms QRS Dur : 138 ms QT Int : 450 ms P-R-T Axes : 000 005 153 degrees QTc Int : 509 ms Atrial fibrillation Left bundle branch block Abnormal ECG When compared with ECG of 29-JAN-2023 08:04, Atrial fibrillation has replaced Atrial flutter Confirmed by Natalio Reyes ([id number]) on 02/27/2023 2:13:52 PM Referred By: REFERRED SELF Confirmed By:Natalio Reyes
--- NOTE | 2023-02-27 15:31 | Communication Note ---
Date of Service: February 27, 2023 77-year-old lady with PMH of A-fib on Eliquis [A-fib RVR in the setting of Lyme disease in 2020], chronic LBBB, valvular heart disease [moderate AR/MR, mild TR], pulmonary hypertension, HTN, HLD came to the ED 02/27 with worsening shortness of breath with exertion associated with occasional funny sensation of the heart but no chest pain or febrile illness recently. Patient reports being compliant with home medication. She is being managed for the following: Acute hypoxemic respiratory failure Acute CHF/heart failure with reduced ejection fraction Rapid A-fib, SHORT ORDER FRY COOK: Secondary to above. Improved rate post EMS intervention SHORT ORDER FRY COOK. Patient on Eliquis. Continue. Patient presenting with worsening shortness of breath, admitting BNP 321. Admitting CXR and CT chest with pulmonary edema and small bilateral pleural effusion. Admitting troponin negative, admitting EKG with A-fib, rate controlled. Admitting echo with EF of 40 to 45%, LA severely dilated, moderate to severe MR. Moderate concentric LVH. Cardiology on board: Managing diuresis, on topical nitrates for blood pressure control and preload reduction. Repeat CXR in AM. Patient reports improvement in her feeling of shortness of breath, wean down oxygen as tolerated. Monitor and replete electrolytes, strict I's and O's. Abnormal urine analysis: Follow urine culture. No urinary signs and symptoms. Monitor off antibiotic. Other chronic medical conditions: Chronic LBBB HLD Prediabetes: A1c of 5.7, need for dietary discretion/healthy lifestyle/regular exercise regimen discussed. Repeat A1c in 3 months, close follow-up with PCP office for long-term monitoring. DVT prophylaxis. Eliquis Full code Patient daughter Ms. Do Lopez, contact #[phone]. On examination, patient on 4 L nasal cannula oxygen, bibasilar Rales but mostly decreased breath sounds bilaterally. For further details on the patient, refer to today's H&P note.
[2023-02-27] MEDS: NITROGLYCERIN 2% OINTMENT 30GM TUBE EXT SCH ×2 (17:23→20:17)
[2023-02-27] MEDS: ATORVASTATIN 10 MG TAB PO SCH (20:09)
[2023-02-27] MEDS: POTASSIUM CHLORIDE CRTAB 20 MEQ TABCR PO SCH (20:09)
[2023-02-27] MEDS: METOPROLOL SUCC 50MG EXT REL TAB PO SCH (20:09)
[2023-02-28] MEDS: NITROGLYCERIN 2% OINTMENT 30GM TUBE EXT SCH ×2 (01:45→07:37)
[2023-02-28] MEDS: APIXABAN 5 MG TABLET PO SCH (07:31)
[2023-02-28] MEDS: lisinopril 10 MG TAB PO SCH ×2 (07:31→20:52)
[2023-02-28] MEDS: METOPROLOL SUCC 50MG EXT REL TAB PO SCH ×2 (07:31→20:52)
[2023-02-28] MEDS: MULTIVITAMIN TAB PO SCH (07:32)
[2023-02-28] MEDS: ASPIRIN 81 MG ECTAB PO SCH (07:32)
[2023-02-28] MEDS: POTASSIUM CHLORIDE CRTAB 20 MEQ TABCR PO SCH (07:32)
[2023-02-28 07:43] LABS: Basophils # (auto) 0.04 K/uL (0-0.2); Basophils % (auto) 0.4 %; Eosinophils # (auto) 0.23 K/uL (0-0.50); Eosinophils % (auto) 2.3 %; Hematocrit (blood only) 42.9 % (37.0-47.0); Hemoglobin 14.9 g/dl (12.0-16.0); Immature Granulocytes # (auto) 0.04 K/uL (0.01-0.20); Immature Granulocytes % (auto) 0.4 %; Lymphocytes # (auto) 1.47 K/uL (1.2-3.4); Lymphocytes % (auto) 14.5 %; Mean Corpuscular Hemoglobin 30.5 pg (25.0-34.0); Mean Corpuscular Hgb Conc 34.7 g/dL (32.0-36.0); Mean Corpuscular Volume 87.9 fL (80.0-100.0); Monocytes # (auto) 1.01 K/uL (0.11-0.59); Monocytes % (auto) 9.9 %; Neutrophils # (auto) 7.37 K/uL (1.40-6.50); Neutrophils % (auto) 72.5 %; Platelet Count 267 K/uL (130-400); RDW Coefficient of Variation 14.5 % (11.5-14.5); RDW Standard Deviation 46.2 fL (36.4-46.3); Red Blood Count 4.88 M/uL (4.20-5.40); White Blood Count 10.16 K/ul (4.8-10.8)
[2023-02-28 08:00] LABS: BUN Creatinine Ratio 34.4 (10-20); Calcium 9.6 mg/dl (8.6-10.3); Creatinine Clr Calc Pharmacy 51.9 ml/min; Est GFR (African American) 72.5 ml/min; Est GFR (Non-African American) 62.5 ml/min; Potassium 4.3 mmol/L (3.5-5.1)
[2023-02-28] MEDS ORDERED: FUROSEMIDE 40 MG/4 ML VIAL IV ONE (08:21)
--- NOTE | 2023-02-28 11:19 | XRay Report ---
XR chest 2V PA/lateral CLINICAL HISTORY: Congestive heart failure, right-sided infiltrate TECHNIQUE: 2 views of the chest were obtained. Comparison: Comparison is made to chest radiograph 02/27/2023 FINDINGS: No lines and tubes are seen. Cardiomegaly is noted. The aortic arch is calcified. Bilateral lower carole g predominant airspace opacities are seen. Prominence of the pulmonary vasculature is noted. Bilatera l pleural effusions are seen, right greater than left, with a locule of pleural fluid in the right fi ssure. IMPRESSION: 1. Cardiomegaly and mild pulmonary edema. 2. Bilateral pleural effusions, right greater than left. Underlying airspace opacity may represent a telectasis, however pneumonia cannot be entirely excluded. ACT 112: Negative or not required by law. Electronically signed by: Dixon Palmer M.D. 02/28/2023 11:18 AM
[2023-02-28] MEDS ORDERED: FUROSEMIDE INJ 20 MG/2 ML VIAL IV ONE (12:03)
--- NOTE | 2023-02-28 12:03 | Cardiology Progress Note ---
Date of Service February 28, 2023 Assessment & Plan (1) Acute hypoxemic respiratory failure: (2) Acute systolic heart failure: (3) Persistent atrial fibrillation: (4) LBBB (left bundle branch block): (5) Mitral regurgitation: Plan 77-year-old female presents with acute dyspnea and signs and symptoms of systolic heart failure with mild to moderate LV dysfunction and moderate to severe mitral insufficiency on echocardiogram. Troponins not consistent with acute myocardial injury. Chronic atrial fibrillation and left bundle branch block on EKG with controlled ventricular response rate Patient is responding to IV diuretics. Chest x-ray with pulmonary edema as well as possible infiltrate right base versus effusion Plan: Patient scheduled for second dose of IV furosemide today We will add topical nitrates for blood pressure control and preload reduction Repeat chest x-ray in a.m. Continue apixaban for now May need to hold if any procedures anticipated Patient clinically responding Cardiology will follow 02/28/2023 Impression: Acute decompensated systolic heart failure, right pleural effusion with hypoxia Improving clinically with initial treatments, diuresis Chest x-ray persistent pleural effusions, right-sided pseudotumor Plan: Additional dose of furosemide IV today 20 mg, add spironolactone 12.5 mg/day Increase lisinopril to 10 mg twice per day Hold apixaban. May require thoracentesis versus cardiac procedures Admission and Anticipated Discharge Date Admission Date: February 27, 2023 Subjective Patient seen and examined, chart, medications, telemetry reviewed Clinically improved after brisk diuresis yesterday still with oxygen demands and dyspnea. No chest pains, dizziness, lightheadedness. No bleeding difficulties. No fevers or chills or productive cough Review of Systems Review of Systems: All systems reviewed & are unremarkable except as noted in Subjective Physical Exam Constitutional: WD/WN, vitals as above no acute distress Eyes: PERRL, conjunctivae normal, anicteric sclerae ENMT: external ear and nose normal, oropharynx normal Neck: trachea midline, no thyromegaly Respiratory: Auscultation: + diminished lung sounds (Right greater than left) Cardiovascular: Rate/Rhythm: regular rate and regular rhythm Heart Sounds: normal S1, normal S2 and + murmur (Grade 2/6 systolic) Vessels: + JVD Extremities: no edema Gastrointestinal (Abdomen): normal bowel sounds, soft, nontender, no hepatosplenomegaly Musculoskeletal: no cyanosis or clubbing, extremities motor strength 5/5 Results & Data Vital Signs (Past 12 Hours) Vital Signs Temp Pulse Resp BP Pulse Ox O2 Del Method O2 Flow Rate 02/28/23 11:36 36.5 C 80 20 112/71 96 Nasal Cannula 3.0 02/28/23 08:00 Nasal Cannula 02/28/23 07:39 36.6 C 79 19 120/64 96 Nasal Cannula 3.0 02/28/23 03:25 36.4 C L 77 20 125/86 95 Nasal Cannula 3.0 Laboratory Results Laboratory Results - last 24 hr 02/28/23 02/28/23 07:20 07:20 WBC 10.16 RBC 4.88 Hgb 14.9 Hct 42.9 MCV 87.9 MCH 30.5 MCHC 34.7 RDW Std Deviation 46.2 RDW Coeff of Dl 14.5 Plt Count 267 MPV 10.0 Immature Gran % (Auto) 0.4 Neut % (Auto) 72.5 Lymph % (Auto) 14.5 [place] % (Auto) 9.9 Eos % (Auto) 2.3 Baso % (Auto) 0.4 Neut # (Auto) 7.37 H Lymph # (Auto) 1.47 [place] # (Auto) 1.01 H Eos # (Auto) 0.23 Baso # (Auto) 0.04 Immature Gran # (Auto) 0.04 Sodium 136 Potassium 4.3 Chloride 102 Carbon Dioxide 26 Anion Gap 8 BUN 31 H Creatinine 0.90 Est Cr Clr Drug Dosing 51.9 Est GFR ( Amer) 72.5 Est GFR (Non-Af Amer) 62.5 BUN/Creatinine Ratio 34.4 H Glucose 104 H Calcium 9.6
[2023-02-28] MEDS: SPIRONOLACTONE 12.5 MG TAB PO SCH (13:14)
--- NOTE | 2023-02-28 16:44 | Hospitalist Progress Note ---
Date of Service February 28, 2023 Assessment & Plan (1) Acute systolic heart failure: Plan 77-year-old lady with PMH of A-fib on Eliquis [A-fib RVR in the setting of Lyme disease in 2020], chronic LBBB, valvular heart disease [moderate AR/MR, mild TR], pulmonary hypertension, HTN, HLD came to the ED 02/27 with worsening shortness of breath with exertion associated with occasional funny sensation of the heart but no chest pain or febrile illness recently. Patient reports being compliant with home medication. She is being managed for the following: Acute hypoxemic respiratory failure Acute CHF/heart failure with reduced ejection fraction Rapid A-fib, [employer]: Secondary to above. Improved rate post EMS intervention [employer]. Patient on Eliquis at home, currently on hold. Continue. B/L pleural effusion, loculated pleural effusion along right minor fissure: will consult pulm Patient presenting with worsening shortness of breath, admitting BNP 321. Admitting CXR and CT chest with pulmonary edema and small bilateral pleural effusion. Loculated fluid along rt minor fissure. Admitting troponin negative, admitting EKG with A-fib, rate controlled. Admitting echo with EF of 40 to 45%, LA severely dilated,moderate to severe MR . Moderate concentric LVH. Cardiology on board: Managing diuresis, Aldactone added, lisinopril dose increased Patient reports improvement in her feeling of shortness of breath, wean down oxygen as tolerated. Monitor and replete electrolytes, strict I's and O's. Abnormal urine analysis:Follow urine culture. No urinary signs and symptoms. Monitor off antibiotic. Other chronic medical conditions: Chronic LBBB HLD Prediabetes: A1c of 5.7, need for dietary discretion/healthy lifestyle/regular exercise regimen discussed. Repeat A1c in 3 months, close follow-up with PCP office for long-term monitoring. DVT prophylaxis. Eliquis on hold, scds Full code Patient daughter Ms. Do Lopez, contact #[phone]. Admission and Anticipated Discharge Date Admission Date: February 27, 2023 Subjective Patient seen and examined at bedside as a follow-up of acute hypoxemic respiratory failure, acute heart failure with reduced ejection fraction. Patient was sitting up in bed, on 3 L nasal cannula oxygen, NAD, reports no new acute event overnight, reports improving breathing, denies chest pain headache or dizziness or other review of symptoms. Denies any pain or burning with passing urine. Physical Exam Physical Exam: GENERAL: Alert and oriented x3. NAD, on 3L NC O2. HEENT: No pallor, no icterus. Pupils equal, round and reactive to light. Oral mucosa moist. NECK: No JVD, no neck masses. HEART: S1 and S2 heard. Regular rate and rhythm. No murmur, no gallop. RESPIRATORY SYSTEM: Normal AP diameter. No accessory muscle use. No wheezing, bibasal rales, but mostly decreased breath sound bilaterally. ABDOMEN: Soft, bowel sounds present, nontender, no distention. CENTRAL NERVOUS SYSTEM: No facial droop. Speech is clear. Obeys simple commands. Moves extremities. EXTREMITIES: No edema, no erythema seen. Results & Data Results & Data Vital Signs (Past 12 Hours) Vital Signs Temp Pulse Resp BP Pulse Ox O2 Del Method O2 Flow Rate 02/28/23 15:20 36.5 C 75 17 112/85 96 Nasal Cannula 3.0 02/28/23 11:36 36.5 C 80 20 112/71 96 Nasal Cannula 3.0 02/28/23 08:00 Nasal Cannula 02/28/23 07:39 36.6 C 79 19 120/64 96 Nasal Cannula 3.0
[2023-02-28] MEDS: ATORVASTATIN 10 MG TAB PO SCH (20:52)
[2023-02-28] MEDS ORDERED: DOCUSATE SODIUM/SENNA 50/8.6MG TAB PO ONE (21:15)
[2023-03-01 07:29] LABS: BUN Creatinine Ratio 31.5 (10-20); Creatinine Clr Calc Pharmacy 51.1 ml/min; Est GFR (African American) 70.6 ml/min; Est GFR (Non-African American) 60.9 ml/min; Magnesium 2.1 mg/dl (1.7-2.4); Phosphorus 4.1 mg/dl (2.5-4.9); Potassium 4.1 mmol/L (3.5-5.1)
--- NOTE | 2023-03-01 08:43 | Pulmonary Consultation ---
Date of Consultation March 01, 2023 Assessment & Plan (1) Pleural effusion: (2) Hypoxia: (3) Acute hypoxemic respiratory failure: Plan Impression: 77-year-old female with atrial fibrillation admitted with acute dyspnea found to be in heart failure. Echocardiogram shows moderate to severe mitral regurgitation. She has responded to diuretics and afterload reduction. Imaging does demonstrate CT scan with some fluid in the minor fissure. Recommendations: 1. Pleural effusion: The patient appears to be improving clinically with medical management. We discussed the utility of thoracentesis to characterize pleural fluid and try and offer her some relief. Her anticoagulation has been held. She thinks she is responding appropriately. I think at this point time given the significant improvement in her clinical status it seems reasonable to continue with medical management. Should the effusions prove refractory or the patient has progressive symptoms, thoracentesis could be entertained at that time. 2. Hypoxemic respiratory failure: Significantly improved. Recommend weaning oxygen to maintain oxygen saturations at or above 90%. Incentive spirometry recommended. Out of bed to chair and ambulate patient to improve atelectasis and VQ mismatch. 3. We will continue to follow with you. If thoracentesis is to be performed, the patient would need to be off of Eliquis for more than 24 hours. Thanks for the opportunity participate in care of this patient. Feel free to contact us with questions or concerns History of Present Illness Attending Physician: Radha Meyer MD History of Present Illness Asked by hospitalist to evaluate this patient with the pleural effusions in the setting of severe mitral regurgitation. History is obtained from discussion with the patient as well as review the electronic medical record. The patient is a 77-year-old female who presented to the hospital 02/27/2023 with complaints of shortness of breath. She has a history of atrial fibrillation with intermittent rapid ventricular response and has been anticoagulated with Eliquis in the outpatient setting. She initially was found to be in A-fib with RVR but improved with the interventions by EMS and in the emergency room. Cardiology consultation was obtained and the patient underwent afterload reduction diuresis and echocardiogram which showed severe MR. Her anticoagulation was held yesterday. Patient reports that she is improving with regards to her breathing but has not yet been up and ambulatory so she is unclear if she is going to have symptoms. She is a lifelong non-smoker. She has never undergone pleural procedures in the past. She denies fevers chills night sweats or other constitutional symptoms. No unintentional weight loss. Allergies Allergy/AdvReac Type Severity Reaction Status Date / Time Penicillins Allergy Intermediate throat Verified 01/29/23 10:41 tightness/nausea Home Medications Medication Instructions Recorded Confirmed Type apixaban 5 mg tablet (Eliquis) 5 mg PO BID 02/06/21 02/27/23 History aspirin 81 mg tablet,delayed 81 mg PO QAM 02/06/21 02/27/23 History release atorvastatin 10 mg tablet 10 mg PO PM 02/06/21 02/27/23 History lisinopril 10 mg tablet 10 mg PO QAM 02/06/21 02/27/23 History multivitamin 1 tab PO QAM 02/06/21 02/27/23 History metoprolol succinate 50 mg 50 mg PO BID #60 tabs 02/10/21 02/27/23 Rx tablet,extended release 24 hr ondansetron 4 mg disintegrating 4 mg PO Q6H PRN nausea and 01/29/23 02/27/23 Rx tablet vomiting #14 tabs Patient History Medical History 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 " Dyslipidemia Hypertension Hyperthyroidism LBBB (left bundle branch block) Left knee DJD LVH (left ventricular hypertrophy) due to hypertensive disease Right knee DJD Silent thyroiditis Surgical History H/O breast surgery " L breast, benign" History of total knee arthroplasty S/P tonsillectomy and adenoidectomy Family History Father Hypertension Diabetes Kidney disease Brother Hypertension Mother Heart disease Social History Smoking Status: Never smoker Hx Alcohol Use: No Hx Substance Use: No Preferred Language: Italian Communication Ability: Effective Clerk General Required: No Beliefs That Will Affect Care: None Current Living Situation: Family Other Information That Helps Us Care for You: No Feels Safe at Home: Yes Safety Concerns: Feels Safe At This Time Assistive Devices: None Review of Systems Review of Systems: All systems reviewed & are unremarkable except as noted in Subjective Physical Exam Constitutional: WD/WN, vitals as above Neck: trachea midline, no thyromegaly Respiratory: no respiratory distress, no labored breathing, no cough and not tachypneic Auscultation: + diminished lung sounds Bilateral bases Cardiovascular: Rate/Rhythm: + irregularly irregular Heart Sounds: normal S1, normal S2 and + murmur Extremities: no edema Gastrointestinal (Abdomen): normal bowel sounds, soft, nontender, no hepatosplenomegaly Musculoskeletal: Extremities: extremities normal to inspection Skin: no rashes, warm and dry Neurologic: Nonfocal exam Lymphatic: no cervical lymphadenopathy Results & Data Results & Data Vital Signs (Past 12 Hours) Vital Signs Temp Pulse Pulse Resp BP Pulse Ox O2 Del Method 03/01/23 07:12 36.6 C 74 17 111/72 96 Room Air 03/01/23 03:48 36.5 C 79 20 111/68 96 Nasal Cannula 02/28/23 22:00 75 02/28/23 22:50 36.5 C 81 16 116/72 95 Room Air O2 Flow Rate 03/01/23 07:12 03/01/23 03:48 1.5 02/28/23 22:00 02/28/23 22:50 Critical Care Results & Data Vital Signs (Past 12 Hours) Vital Signs Temp Pulse Pulse Resp BP Pulse Ox O2 Del Method 03/01/23 07:12 36.6 C 74 17 111/72 96 Room Air 03/01/23 03:48 36.5 C 79 20 111/68 96 Nasal Cannula 02/28/23 22:00 75 02/28/23 22:50 36.5 C 81 16 116/72 95 Room Air O2 Flow Rate 03/01/23 07:12 03/01/23 03:48 1.5 02/28/23 22:00 02/28/23 22:50 Lab & Micro Results (Past 24 Hours) No Data to Display Na 138 mmol/L (136-145) 03/01/23 K 4.1 mmol/L (3.5-5.1) 03/01/23 Cl 102 mmol/L (98-107) 03/01/23 CO2 29 mmol/L (21-32) 03/01/23 Anion Gap 7 (3-11) 03/01/23 BUN 29 mg/dl (6-23) H 03/01/23 Creatinine 0.92 mg/dl (0.6-1.2) 03/01/23 Estimated GFR ( Amer) 70.6 ml/min 03/01/23 Estimated GFR (Non-Af Amer) 60.9 ml/min 03/01/23 BUN/Creatinine Ratio 31.5 (10-20) H 03/01/23 Glu 95 mg/dl (70-99(Fasting)) 03/01/23 Ca 9.0 mg/dl (8.6-10.3) 03/01/23 Phosphorus Level 4.1 mg/dl (2.5-4.9) 03/01/23 Mg 2.1 mg/dl (1.7-2.4) 03/01/23 06:30 Calcium Level 9.0 mg/dl (8.6-10.3) 03/01/23 06:30 Microbiology 02/27/23 06:15 Urine Culture - Final Urine,Clean Catch More than three types of organisms present, all high counts mixed probable skin latasha - No further identifications or sensitivities to follow. Diagnostic Findings (Past 24 Hours) Chest X-Ray 02/28/23 09:00 XR chest 2V PA/lateral CLINICAL HISTORY: Congestive heart failure, right-sided infiltrate TECHNIQUE: 2 views of the chest were obtained. Comparison: Comparison is made to chest radiograph 02/27/2023 FINDINGS: No lines and tubes are seen. Cardiomegaly is noted. The aortic arch is calcified. Bilateral lower lung predominant airspace opacities are seen. Prominence of the pulmonary vasculature is noted. Bilateral pleural effusions are seen, right greater than left, with a locule of pleural fluid in the right fissure. IMPRESSION: 1. Cardiomegaly and mild pulmonary edema. 2. Bilateral pleural effusions, right greater than left. Underlying airspace opacity may represent atelectasis, however pneumonia cannot be entirely excluded. ACT 112: Negative or not required by law. Electronically signed by: Dixon Palmer M.D. 02/28/2023 11:18 AM I & O Totals 24 Hours 02/28/23 03/01/23 03/02/23 06:59 06:59 06:59 Intake Total 940 / 940 1570 / 1570 Output Total 5150 / 5150 1675 / 1675 Balance -4210 / -4210 -105 / -105 Cumulative 02/27/23 01:28 thru 03/01/23 06:10 Intake Total 2510 Output Total 6825 Balance -4315 RT Ventilator Mngmt (Last Documented) Ventilator Ordered Settings Respiratory Rate 17 03/01/23 07:12 Ventilator - PT Measurements Respiratory Rate 17 PG Care Time/CCT Total # of Minutes Spent Total Time Spent with Patient: Total time spent is greater than 50% in coordination of care (as documented) at patient's floor/unit and/or counseling patient: Coding Level of Care Code 28056 INT INP/OBS CARE 2/55MIN Diagnoses Pleural effusion J90 Hypoxia R09.02 Acute hypoxemic respiratory failure J96.01
[2023-03-01] MEDS: DOCUSATE SODIUM/SENNA 50/8.6MG TAB PO SCH (08:49)
[2023-03-01] MEDS: lisinopril 10 MG TAB PO SCH ×2 (08:49→20:20)
[2023-03-01] MEDS: ASPIRIN 81 MG ECTAB PO SCH (08:50)
[2023-03-01] MEDS: METOPROLOL SUCC 50MG EXT REL TAB PO SCH ×2 (08:50→20:20)
[2023-03-01] MEDS: MULTIVITAMIN TAB PO SCH (08:51)
[2023-03-01] MEDS: SPIRONOLACTONE 12.5 MG TAB PO SCH (08:51)
--- NOTE | 2023-03-01 11:46 | Cardiology Progress Note ---
Date of Service March 01, 2023 Assessment & Plan (1) Acute hypoxemic respiratory failure: (2) Acute systolic heart failure: (3) Persistent atrial fibrillation: (4) LBBB (left bundle branch block): (5) Mitral regurgitation: Plan 77-year-old female presents with acute dyspnea and signs and symptoms of systolic heart failure with mild to moderate LV dysfunction and moderate to severe mitral insufficiency on echocardiogram. Troponins not consistent with acute myocardial injury. Chronic atrial fibrillation and left bundle branch block on EKG with controlled ventricular response rate Patient is responding to IV diuretics. Chest x-ray with pulmonary edema as well as possible infiltrate right base versus effusion Plan: Patient scheduled for second dose of IV furosemide today We will add topical nitrates for blood pressure control and preload reduction Repeat chest x-ray in a.m. Continue apixaban for now May need to hold if any procedures anticipated Patient clinically responding Cardiology will follow 02/28/2023 Impression: Acute decompensated systolic heart failure, right pleural effusion with hypoxia Improving clinically with initial treatments, diuresis Chest x-ray persistent pleural effusions, right-sided pseudotumor Plan: Additional dose of furosemide IV today 20 mg, add spironolactone 12.5 mg/day Increase lisinopril to 10 mg twice per day Hold apixaban. May require thoracentesis versus cardiac procedures 03/01/2023 1. Acute decompensated systolic heart failure with right pleural effusion and hypoxic respiratory failure 2. Diffuse cardiomyopathy with mild left dysfunction and moderate to severe mitral sufficiency 3. Chronic atrial fibrillation 4. Chronic left bundle branch block Plan: Transition diuretics to oral. Beginning spironolactone 12.5 mg today add furosemide 20 mg daily. Continue increased dose of lisinopril and current dose of metoprolol succinate Given clinical improvement will resume apixaban. Ischemic work-up as outpatient likely with stress nuclear imaging Admission and Anticipated Discharge Date Admission Date: February 27, 2023 Subjective Patient seen and examined, chart, medications, telemetry reviewed Patient improving with diuresis. Oxygenation now doing well on room air. No chest pains, tachypalpitations, dizziness. Weight down 5 kg Telemetry atrial fibrillation with no arrhythmias Review of Systems Review of Systems: All systems reviewed & are unremarkable except as noted in Subjective Physical Exam Constitutional: WD/WN, vitals as above no acute distress Eyes: PERRL, conjunctivae normal, anicteric sclerae ENMT: external ear and nose normal, oropharynx normal Neck: trachea midline, no thyromegaly Respiratory: Auscultation: + diminished lung sounds (Right right base but improved) and + rales (Minimal) Cardiovascular: Rate/Rhythm: + irregularly irregular Heart Sounds: normal S1, normal S2 and + murmur (Grade 2/6 systolic) Vessels: + JVD Extremities: no edema Gastrointestinal (Abdomen): normal bowel sounds, soft, nontender, no hepatosplenomegaly Musculoskeletal: no cyanosis or clubbing, extremities motor strength 5/5 Results & Data Vital Signs (Past 12 Hours) Vital Signs Temp Pulse Pulse Resp BP BP Pulse Ox 03/01/23 10:54 36.6 C 73 18 108/68 97 03/01/23 10:26 69 03/01/23 08:00 03/01/23 07:12 36.6 C 74 17 111/72 96 03/01/23 03:48 36.5 C 79 20 111/68 96 O2 Del Method O2 Flow Rate 03/01/23 10:54 Room Air 03/01/23 10:26 03/01/23 08:00 Nasal Cannula 1.5 03/01/23 07:12 Room Air 03/01/23 03:48 Nasal Cannula 1.5 Laboratory Results Laboratory Results - last 24 hr 03/01/23 06:30 Sodium 138 Potassium 4.1 Chloride 102 Carbon Dioxide 29 Anion Gap 7 BUN 29 H Creatinine 0.92 Est Cr Clr Drug Dosing 51.1 Est GFR ( Amer) 70.6 Est GFR (Non-Af Amer) 60.9 BUN/Creatinine Ratio 31.5 H Glucose 95 Calcium 9.0 Phosphorus 4.1 Magnesium 2.1
[2023-03-01] MEDS: FUROSEMIDE 20 MG TAB PO SCH (12:38)
--- NOTE | 2023-03-01 17:10 | Hospitalist Progress Note ---
Date of Service March 01, 2023 Assessment & Plan (1) Acute systolic heart failure: Plan 77-year-old lady with PMH of A-fib on Eliquis [A-fib RVR in the setting of Lyme disease in 2020], chronic LBBB, valvular heart disease [moderate AR/MR, mild TR], pulmonary hypertension, HTN, HLD came to the ED 02/27 with worsening shortness of breath with exertion associated with occasional funny sensation of the heart but no chest pain or febrile illness recently. Patient reports being compliant with home medication. She is being managed for the following: Acute hypoxemic respiratory failure Acute CHF/heart failure with reduced ejection fraction Rapid A-fib, [employer]: Secondary to above. Improved rate post EMS intervention [employer]. Patient on Eliquis at home, currently on hold. Continue. B/L pleural effusion, loculated pleural effusion along right minor fissure: Pulm evaled, appreciate recs. Patient presenting with worsening shortness of breath, admitting BNP 321. Admitting CXR and CT chest with pulmonary edema and small bilateral pleural effusion. Loculated fluid along rt minor fissure. Admitting troponin negative, admitting EKG with A-fib, rate controlled. Admitting echo with EF of 40 to 45%, LA severely dilated,moderate to severe MR . Moderate concentric LVH. Cardiology on board: Managing diuresis, Aldactone added, lisinopril dose increased. c/w metoprolol succinate. Eliquis resumed, ischemic w/u as OP. Patient reports improvement in her feeling of shortness of breath, wean down oxygen as tolerated. Monitor and replete electrolytes, strict I's and O's. Abnormal urine analysis:Follow urine culture. No urinary signs and symptoms. Monitor off antibiotic. Other chronic medical conditions: Chronic LBBB HLD Prediabetes: A1c of 5.7, need for dietary discretion/healthy lifestyle/regular exercise regimen discussed. Repeat A1c in 3 months, close follow-up with PCP office for long-term monitoring. DVT prophylaxis. Eliquis Full code Patient daughter Ms. Do Lopez, contact #[phone]. Admission and Anticipated Discharge Date Admission Date: February 27, 2023 Subjective Patient seen and examined at bedside as a follow-up of acute hypoxemic respiratory failure, acute heart failure with reduced ejection fraction. Patient was sitting up in chair, on 2 L nasal cannula oxygen, NAD, reports no new acute event overnight, reports improving breathing, denies chest pain headache or dizziness or other review of symptoms. Denies any pain or burning with passing urine. Physical Exam Physical Exam: GENERAL: Alert and oriented x3. NAD, on 3L NC O2. HEENT: No pallor, no icterus. Pupils equal, round and reactive to light. Oral mucosa moist. NECK: No JVD, no neck masses. HEART: S1 and S2 heard. Regular rate and rhythm. No murmur, no gallop. RESPIRATORY SYSTEM: Normal AP diameter. No accessory muscle use. No wheezing, bibasal rales, but mostly decreased breath sound bilaterally. ABDOMEN: Soft, bowel sounds present, nontender, no distention. CENTRAL NERVOUS SYSTEM: No facial droop. Speech is clear. Obeys simple commands. Moves extremities. EXTREMITIES: No edema, no erythema seen. Results & Data Results & Data Vital Signs (Past 12 Hours) Vital Signs Temp Pulse Pulse Resp BP BP Pulse Ox 03/01/23 16:02 86 03/01/23 15:21 37.0 C 81 18 104/66 94 03/01/23 10:54 36.6 C 73 18 108/68 97 03/01/23 10:26 69 03/01/23 08:00 03/01/23 07:12 36.6 C 74 17 111/72 96 O2 Del Method O2 Flow Rate 03/01/23 16:02 03/01/23 15:21 Room Air 03/01/23 10:54 Room Air 03/01/23 10:26 03/01/23 08:00 Nasal Cannula 1.5 03/01/23 07:12 Room Air
[2023-03-01] MEDS: APIXABAN 5 MG TABLET PO SCH ×2 (20:20→21:45)
[2023-03-01] MEDS: ATORVASTATIN 10 MG TAB PO SCH (20:20)
--- NOTE | 2023-03-01 21:46 | Communication Note ---
Date of Service: March 01, 2023 RN clarifying Eliquis order for patient. Hold Eliquis for now until pulmonary evaluation in a.m. as per discussion with Dr. Foley.
[2023-03-02 07:14] LABS: Hematocrit (blood only) 41.8 % (37.0-47.0); Hemoglobin 14.3 g/dl (12.0-16.0); Mean Corpuscular Hemoglobin 30.1 pg (25.0-34.0); Mean Corpuscular Hgb Conc 34.2 g/dL (32.0-36.0); Mean Platelet Volume 10.1 fL (9.4-12.4); Platelet Count 290 K/uL (130-400); RDW Coefficient of Variation 14.6 % (11.5-14.5); RDW Standard Deviation 46.9 fL (36.4-46.3); Red Blood Count 4.75 M/uL (4.20-5.40); White Blood Count 9.43 K/ul (4.8-10.8)
[2023-03-02 07:25] LABS: BUN Creatinine Ratio 25.5 (10-20); Calcium 9.1 mg/dl (8.6-10.3); Creatinine Clr Calc Pharmacy 44.3 ml/min; Est GFR (African American) 59.5 ml/min; Est GFR (Non-African American) 51.3 ml/min; Magnesium 2.2 mg/dl (1.7-2.4); Potassium 4.1 mmol/L (3.5-5.1)
[2023-03-02] MEDS: SPIRONOLACTONE 12.5 MG TAB PO SCH (08:11)
[2023-03-02] MEDS: lisinopril 10 MG TAB PO SCH ×2 (08:12→19:26)
[2023-03-02] MEDS: METOPROLOL SUCC 50MG EXT REL TAB PO SCH ×2 (08:12→19:26)
[2023-03-02] MEDS: ASPIRIN 81 MG ECTAB PO SCH (08:13)
[2023-03-02] MEDS: MULTIVITAMIN TAB PO SCH (08:13)
[2023-03-02] MEDS: DOCUSATE SODIUM/SENNA 50/8.6MG TAB PO SCH (08:13)
[2023-03-02] MEDS: FUROSEMIDE 20 MG TAB PO SCH (08:14)
--- NOTE | 2023-03-02 08:58 | Pulmonology Progress Note ---
Patient seen and examined. EMR reviewed. Agree with notes and recommendations by PA. The effusion is significantly decreased. The patient's oxygen requirement has resolved. No indication for thoracentesis currently. The patient can be dismissed from the hospital from a pulmonary perspective on a low-salt diet and diuretic regiment. Recommend outpatient follow-up chest x-ray in 2 to 4 weeks. Pulmonary will sign off. Feel free to contact us with questions or concerns Date of Service March 02, 2023 Assessment & Plan (1) Pleural effusion: (2) Hypoxia: (3) Acute hypoxemic respiratory failure: Plan Impression: 77-year-old female with atrial fibrillation admitted with acute dyspnea found to be in heart failure. Echocardiogram shows moderate to severe mitral regurgitation. She has responded to diuretics and afterload reduction. Bedside ultrasound today demonstrates small RIGHT-sided effusion and nearly resolved LEFT-sided effusion. Recommendations: 1. Pleural effusion: The patient appears to be improving clinically with medical management. Upon discussion of thoracentesis today, she consents to procedure. During evaluation with bedside ultrasound, there noted to be significant improvement in pleural fluid with near complete resolution of the LEFT-sided effusion and slight RIGHT-sided effusion which had significantly improved as well. This information was reviewed with the patient. We will hold off on thoracentesis attempt at this point given rapid improvement with medical management. Patient with warrant follow-up chest x-ray in the next 4 weeks in the outpatient setting to evaluate for possibility of reaccumulation of effusion. It is with hopes that her symptoms continue to improve with medical management alone. 2. Hypoxemic respiratory failure: Significantly improved. Now on room air. Encourage out of bed and hallway ambulation at this point. 3. We will continue to follow with you. Patient can restart her Eliquis now. Thanks for the opportunity participate in care of this patient. Feel free to contact us with questions or concerns. Admission and Anticipated Discharge Date Admission Date: February 27, 2023 Subjective Patient was seen and evaluated by myself at bedside. She reports that her breathing has improved. She has been ambulating to and from the restroom without significant shortness of breath. She has not walked the halls yet today. She offers no complaints of pain. Overall, she feels well. Review of Systems Review of Systems: Unchanged from prior Physical Exam Physical Exam: VITAL SIGNS - Vital signs and nursing notes were reviewed. GENERAL - 77-year-old female appearing her stated age who is in no acute distress. Communicates well with provider and answers questions appropriately. LUNGS - Auscultation reveals crackles at the RIGHT sided lung base. CARDIAC - RRR with S1/S2. No murmur, rubs, or gallops appreciated. PSYCH - A&Ox3 and cooperates fully with examiner. Pt is very pleasant and interacts well with examiner. Results & Data Results & Data Vital Signs (Past 12 Hours) Vital Signs Temp Pulse Pulse Resp BP BP Pulse Ox 03/02/23 07:21 36.5 C 76 18 110/68 95 03/02/23 03:36 36.6 C 77 18 115/69 95 03/01/23 22:00 71 03/01/23 22:40 36.6 C 68 18 109/69 96 O2 Del Method 03/02/23 07:21 Room Air 03/02/23 03:36 Room Air 03/01/23 22:00 03/01/23 22:40 Room Air PG Care Time/CCT Total # of Minutes Spent Total Time Spent with Patient: Total time spent is greater than 50% in coordination of care (as documented) at patient's floor/unit and/or counseling patient: Coding Level of Care Code 41217 SUB INP/OBS CARE 2/35MIN Diagnoses Pleural effusion J90 Hypoxia R09.02 Acute hypoxemic respiratory failure J96.01
[2023-03-02] MEDS: APIXABAN 5 MG TABLET PO SCH ×2 (09:03→19:27)
--- NOTE | 2023-03-02 09:51 | Procedure Note ---
Procedure Note Date of Service March 02, 2023 Note Procedure: Thoracic ultrasound Broaching Machine Operator Dr. Foley and VINAY Burroughs Indication: Pleural effusion Procedure: The patient was placed in a seated position. Limited thoracic ultrasound of the bilateral hemithoraces was performed. No significant effusion was identified on the left. A small effusion was identified on the right with some slight compressive atelectasis. Given the small nature of the effusion and the fact that the patient's oxygen requirement is now resolved with medications, would not recommend proceeding with thoracentesis at this point time. Anticoagulation can be restarted. Recommend the patient be discharged on salt restricted diet and diuretics and have follow-up chest x-ray in 2 to 4 weeks with primary care provider. Pulmonary will sign off at this point time. Feel free to contact us with any questions or concerns Coding CPT Codes Pulmonary/Thoracic - Pulmonary and Thoracic: 69694 US, Chest, real time with imaging documentation ([id number]) [facility] Procedure Codes (Charges) Pulmonary/Thoracic Procedure 1: Pulmonary and Thoracic: [id number] US, Chest, real time with imaging documentation
--- NOTE | 2023-03-02 14:57 | Cardiology Progress Note ---
Date of Service March 02, 2023 Assessment & Plan (1) Acute hypoxemic respiratory failure: (2) Acute systolic heart failure: (3) Persistent atrial fibrillation: (4) LBBB (left bundle branch block): (5) Mitral regurgitation: Plan 77-year-old female presents with acute dyspnea and signs and symptoms of systolic heart failure with mild to moderate LV dysfunction and moderate to severe mitral insufficiency on echocardiogram. Troponins not consistent with acute myocardial injury. Chronic atrial fibrillation and left bundle branch block on EKG with controlled ventricular response rate Patient is responding to IV diuretics. Chest x-ray with pulmonary edema as well as possible infiltrate right base versus effusion Plan: Patient scheduled for second dose of IV furosemide today We will add topical nitrates for blood pressure control and preload reduction Repeat chest x-ray in a.m. Continue apixaban for now May need to hold if any procedures anticipated Patient clinically responding Cardiology will follow 02/28/2023 Impression: Acute decompensated systolic heart failure, right pleural effusion with hypoxia Improving clinically with initial treatments, diuresis Chest x-ray persistent pleural effusions, right-sided pseudotumor Plan: Additional dose of furosemide IV today 20 mg, add spironolactone 12.5 mg/day Increase lisinopril to 10 mg twice per day Hold apixaban. May require thoracentesis versus cardiac procedures 03/01/2023 1. Acute decompensated systolic heart failure with right pleural effusion and hypoxic respiratory failure 2. Diffuse cardiomyopathy with mild left dysfunction and moderate to severe mitral sufficiency 3. Chronic atrial fibrillation 4. Chronic left bundle branch block Plan: Transition diuretics to oral. Beginning spironolactone 12.5 mg today add furosemide 20 mg daily. Continue increased dose of lisinopril and current dose of metoprolol succinate Given clinical improvement will resume apixaban. Ischemic work-up as outpatient likely with stress nuclear imaging 03/02/2023 Plan as above patient demonstrating ongoing improvement. Now on guideline directed medical regimen with good control heart rate blood pressure and fluid status. Pleural effusion resolving Function capacity improved. No further recommendations or changes in medication Plan outpatient evaluation for ischemia. Close clinical follow-up with cardiology Admission and Anticipated Discharge Date Admission Date: February 27, 2023 Subjective Patient seen and examined, chart, medications, telemetry reviewed continues to demonstrate improvement. No further oxygen requirements No shortness of breath or cough no chest discomfort. Review of Systems Review of Systems: All systems reviewed & are unremarkable except as noted in Subjective Physical Exam Constitutional: WD/WN, vitals as above no acute distress Eyes: PERRL, conjunctivae normal, anicteric sclerae ENMT: external ear and nose normal, oropharynx normal Neck: trachea midline, no thyromegaly Respiratory: Auscultation: + diminished lung sounds (Right right base but improved) Cardiovascular: Rate/Rhythm: regular rate, regular rhythm and + irregularly irregular Heart Sounds: normal S1, normal S2 and + murmur (Grade 2/6 systolic) Vessels: + JVD Extremities: no edema Gastrointestinal (Abdomen): normal bowel sounds, soft, nontender, no hepatosplenomegaly Musculoskeletal: no cyanosis or clubbing, extremities motor strength 5/5 Results & Data Vital Signs (Past 12 Hours) Vital Signs Temp Pulse Pulse Resp BP BP Pulse Ox 03/02/23 10:56 36.9 C 77 18 122/70 96 03/02/23 10:30 74 03/02/23 07:50 03/02/23 07:21 36.5 C 76 18 110/68 95 03/02/23 03:36 36.6 C 77 18 115/69 95 O2 Del Method 03/02/23 10:56 Room Air 03/02/23 10:30 03/02/23 07:50 Room Air 03/02/23 07:21 Room Air 03/02/23 03:36 Room Air Laboratory Results Laboratory Results - last 24 hr 03/02/23 03/02/23 06:25 06:25 WBC 9.43 RBC 4.75 Hgb 14.3 Hct 41.8 MCV 88.0 MCH 30.1 MCHC 34.2 RDW Std Deviation 46.9 H RDW Coeff of Dl 14.6 H Plt Count 290 MPV 10.1 Sodium 139 Potassium 4.1 Chloride 102 Carbon Dioxide 30 Anion Gap 7 BUN 27 H Creatinine 1.06 Est Cr Clr Drug Dosing 44.3 Est GFR ( Amer) 59.5 Est GFR (Non-Af Amer) 51.3 BUN/Creatinine Ratio 25.5 H Glucose 146 H Calcium 9.1 Magnesium 2.2
--- NOTE | 2023-03-02 15:12 | Discharge Summary ---
Date of Service March 02, 2023 Admission HPI Per Admitting Provider History obtained from patient, family, and records. Medical history significant for A-fib on Eliquis, chronic LBBB, valvular heart disease (moderate AR/MR, mild TR), pulmonary hypertension, hypertension, hyperlipidemia. Last confinement January 2021 for A-fib with RVR in the setting of Lyme disease. Recent ER visit last month for diverticulitis presenting as hematochezia. Patient completed outpatient antibiotic course. Did not have to stop Eliquis. Last few days, patient noted shortness of breath worse with exertion with occasional flip-flopping sensation of the heart. No chest pain. Patient compliant with home medications. Patient thinks she lost weight after diverticulitis episode from last month but has gained some back. No unusual stress at home. Patient woke up around midnight with shortness of breath. Patient noted to be in rapid A-fib upon EMS arrival, heart rate 100-1 50s. O2 sats 88 on room air. IV Cardizem bolus administered prior to ER arrival. 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 Admission Exam Per Admitting Provider GENERAL: Comfortable, slightly anxious, obese, pleasant, minimal respiratory distress SKIN: Normal color, warm HEENT: [place] palpebral conjunctivae, no ptosis, moist buccal mucosa, nasal cannula in place NECK : Supple, distended neck veins, no tenderness CHEST : Decreased breath sounds, no tenderness HEART : Irregular, systolic murmur ABDOMEN: Some distention, nontender EXTREMITIES : Minimal LE swelling, no LE tenderness, no other conspicuous deformities noted NEUROLOGIC : Coherent, no facial asymmetry, no other gross focality Principal Diagnosis Acute hypoxemic respiratory failure, resolved Acute heart failure with reduced ejection fraction Bilateral pleural effusion Discharge Exam GENERAL: Alert and oriented x3. NAD, on RA HEENT: No pallor, no icterus. Pupils equal, round and reactive to light. Oral mucosa moist. NECK: No JVD, no neck masses. HEART: S1 and S2 heard. Regular rate and rhythm. No murmur, no gallop. RESPIRATORY SYSTEM: Normal AP diameter. No accessory muscle use. No wheezing, no crackles. ABDOMEN: Soft, bowel sounds present, nontender, no distention. CENTRAL NERVOUS SYSTEM: No facial droop. Speech is clear. Obeys simple commands. Moves extremities. EXTREMITIES: No edema, no erythema seen. Discharge Data Allergies Allergy/AdvReac Type Severity Reaction Status Date / Time Penicillins Allergy Intermediate throat Verified 01/29/23 10:41 tightness/nausea Consultations 02/27/23 05:44 ED Decision to Admit Stat 02/27/23 08:57 Consult Cardiology Routine 02/28/23 16:43 Consult Pulmonology Routine Ordered Studies 02/27/23 02:52 CT chest diagnostic w con Stat 03/02/23 08:21 sono, invasive monitoring [US point of care ultrasound] Urgent Hospital Course (1) Acute systolic heart failure: Plan 77-year-old lady with PMH of A-fib on Eliquis [A-fib RVR in the setting of Lyme disease in 2020], chronic LBBB, valvular heart disease [moderate AR/MR, mild TR], pulmonary hypertension, HTN, HLD came to the ED 02/27 with worsening shortness of breath with exertion associated with occasional funny sensation of the heart but no chest pain or febrile illness recently. Patient reports being compliant with home medication. 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 Improved rate post EMS intervention SENIOR COST ANALYST. Patient on Eliquis at home. Continue. B/L pleural effusion, loculated pleural effusion along right minor fissure: Pulm evaled, appreciate recs. Repeat imaging in 4 weeks. Pt is made aware. Patient presenting with worsening shortness of breath, admitting BNP 321. Admitting CXR and CT chest with pulmonary edema and small bilateral pleural effusion. Loculated fluid along rt minor fissure. Admitting troponin negative, admitting EKG with A-fib, rate controlled. Admitting echo with EF of 40 to 45%, LA severely dilated,moderate to severe MR . Moderate concentric LVH. Cardiology on board: Managing diuresis, Aldactone added, lasix added, lisinopril dose increased. c/w metoprolol succinate 50 mg bid. Ischemic w/u as OP. Pt to f/u cardio on DC. Patient is clinically better, on room air, is ambulating without shortness of breath, hemodynamically stable, would like to go home today. Abnormal urine analysis:Follow urine culture. No urinary signs and symptoms. Monitor off antibiotic. Other chronic medical conditions: Chronic LBBB HLD Prediabetes: A1c of 5.7, need for dietary discretion/healthy lifestyle/regular exercise regimen discussed. Repeat A1c in 3 months, close follow-up with PCP office for long-term monitoring. DVT prophylaxis. Karinekevin Full code Patient daughter Ms. Do Lopez, contact #[phone]. Patient being discharged home with family support with following instruction at the point of discharge: Follow-up with your primary care physician within a week time and likely you will need labs CBC/CMP/magnesium/phosphorus. Your A1c was 5.7 in the hospital, maintain dietary discretion/heart healthy diet/low-sodium diet/regular exercise regimen. You will need A1c in 3 months. Follow-up with your cardiology in 2 to 4 weeks time, he will likely need outpatient ischemic work-up for your heart. Cardiology evaluated you for heart failure while in the hospital, your heart medication has been optimized as prescribed. For your pleural effusion, you will need repeat chest x-ray in 2 to 4 weeks per pulmonology recommendation, coordinate with your primary care office for this test. Take your medications as prescribed. Please make sure that you are able to get your medications today by calling your pharmacy before you leave the hospital so that your treatment continuity is not broken. Home Health Attestation I certify that this patient is under my care and that I, or a physicians histology assistant working with me, had a face to-face encounter that meets the home health [id number] encounter requirements with this patient. The encounter with the patient was in whole, or in part, for the following medic al condition, which is the primary reason for home health care (list medical condition): I certify that, based on my findings, the following services are medically necessary home health services: My clinical findings support the need for the above services because: Further, I certify that my clinical findings support that this patient is homebound (i.e. absences from home require considerable and taxing effort and are for medical reasons or shinto services or infrequently or of short duration when for other reasons) because: Certification for Home Health Services: Based on the above findings, I certify that this patient is confined to the home and needs intermittent fci care, physical therapy and/or speech therapy or continues to need occupational therapy. The patient is under my care, and I have initiated the establishment of the plan of care. This patient will be followed by a physician who will periodically review the plan of care. Total Time Total Time Spent Total Time Spent (In Minutes): 45 Discharge Plan Discharge Items Patient Disposition: Home - Self-Care Reason For Visit: RESP FAILURE Discharge Diagnosis: Acute hypoxemic respiratory failure, resolved Acute heart failure with reduced ejection fraction Bilateral pleural effusion Activity: Resume your previous activity Non-emergency contact: Primary Care Provider Call non-emergency contact if: you have any medication questions, your symptoms worsen and your temperature is above 101 Follow-up/Referrals: Gemma Garsia DO [Primary Care Provider] - (Date & Time 03/09/2023 3:00 PM Provider Gemma Garsia DO Department [facility] ) Diet: Heart Healthy and Low Sodium (2gm) Addkishor Attending Provider Instructions: Follow-up with your primary care physician within a week time and likely you will need labs CBC/CMP/magnesium/phosphorus. Your A1c was 5.7 in the hospital, maintain dietary discretion/heart healthy diet/low-sodium diet/regular exercise regimen. You will need A1c in 3 months. Follow-up with your cardiology in 2 to 4 weeks time, he will likely need outpatient ischemic work-up for your heart. Cardiology evaluated you for heart failure while in the hospital, your heart medication has been optimized as prescribed. For your pleural effusion, you will need repeat chest x-ray in 2 to 4 weeks per pulmonology recommendation, coordinate with your primary care office for this test. Take your medications as prescribed. Please make sure that you are able to get your medications today by calling your pharmacy before you leave the hospital so that your treatment continuity is not broken. Addtl Bottle Blower Provider Instructions: Call 911 and go to the Emergency Room if: * You have tightness or pain in your chest that does not go away with rest or Nitroglycerin * You are very short of breath even with rest Call your doctor if any of the following symptoms or problems start or get worse: * Shortness of breath or difficulty breathing * Wake up at night short of breath * Chest pain * Cough * Swelling of your hands, fee, or legs * More fatigued or tired with your normal activity * Palpitations - sudden fast heart beats WEIGHT * Weigh yourself every morning after using the bathroom. * Use the same scale. * Wear the same amount of clothing. * Write your weight down on your chart. * Call your doctor if you gain more than 2-3 pounds in 1-2 days. MEDICATIONS * Use this discharge instruction sheet for instructions. * Take your medications at the time your doctor ordered. * Do not skip a dose of your medicines. * If you miss a dose of medicine, take as soon as possible, but DO NOT DOUBLE A DOSE. * Read your medicine information when you get home. * Know all of the side effects of your medicine. * Call your doctor's office if you have any side effects. * Be sure all of your doctors know what medicine and herbs you take (including cold, flu, and herbal medicine). * Pain Medicine: If you do not get relief from your pain, please call your doctor for help. Take the following with you to your follow-up doctor appointments: * Weight Chart * Medication List * List of questions Do not drink excessive alcohol, beer or wine. Pending Studies at Discharge: No Stand-Alone Forms: My [facility], Smoking Cessation Medications and DC Order Prescriptions: New spironolactone 25 mg Tablet 12.5 mg PO DAILY Qty: 15 0RF furosemide 20 mg Tablet 20 mg PO QAM Qty: 30 0RF Continued ondansetron 4 mg tablet,disintegrating 4 mg PO Q6H PRN (Reason: nausea and vomiting) Qty: 14 0RF multivitamin Tablet 1 tab PO QAM atorvastatin 10 mg tablet 10 mg PO PM aspirin 81 mg tablet,delayed release (DR/EC) 81 mg PO QAM Eliquis 5 mg tablet 5 mg PO BID metoprolol succinate 50 mg Tablet Extended Release 24 Hr 50 mg PO BID Qty: 60 0RF Changed lisinopril 10 mg tablet 10 mg PO BID Qty: 60 0RF Discharge Orders: Discharge Order (Routine); Ordered 03/02/23 Ordered By: Radha Meyer Admission Data Admit Date/Time: 02/27/23 06:33 Attending Provider: Radha Meyer Admit Provider: Tadeo Mathews Primary Care Provider: Gemma Garsia Other Providers: Tadeo Mathews ; Azeb Miller ; Garry Hutchison ; Jas Ramos ; Harpal Kirkpatrick ; Jacob Hernandez ; Je Sam ; Jessica Lora ; Eduarda Law ; Azeb Yin ; Dimitry Rivas ; Kobe Rizvi ; Ja Fraser ; Tu Burroughs ; Donny Avila ; Elvin Foley ; Araseli Cortez ; Selene Jose
[2023-03-02] MEDS: ATORVASTATIN 10 MG TAB PO SCH (19:27)
== END 2023-03-02 19:35 | disposition home or self-care (01) | DRG 291 ==
LOC: ED 01:38 → 2S 06:33